=== PATIENT | female | born 1955 | race Caucasian/White ===

== ENCOUNTER 2018-11-23 11:03 | Emergency (ER) | payer BC ==
[~2018-11-23] VITALS: Ht 160 cm; Wt 85.3 kg
[2018-11-23] MEDS ORDERED: IV NORMAL SALINE 1000ML BAG 1,000 ML IV SCH (11:30)
[2018-11-23] MEDS ORDERED: HYOSCYAMINE 0.125 MG TAB.RAPDIS PO ONE (11:30)
[2018-11-23] MEDS ORDERED: PROCHLORPERAZINE 10 MG/2 ML VIAL. IV ONE (11:30)
--- NOTE | 2018-11-23 11:42 | PHYS DOC ---
Past Medical History Past Medical History: Fibromyalgia Past Surgical History: Cholecystectomy Additional Past Surgical Histo: Juan fundoplication, gastric sleeve, back surgery Alcohol Use: None Drug Use: None Adult General Chief Complaint Chief Complaint: NAUSEA/VOMITING/DIARRHA HPI HPI Patient is a 63 year old female who presents with nausea vomiting and diarrhea. Symptoms have waxed and waned over the past month, worse over the past week. Patient was seen at an urgent care 2 days ago and prescribed Zofran which did little to help with the nausea. Patient also has received improvement with Imodium for the diarrhea. No blood in the stool or emesis. Any food seems to make the symptoms worse. Patient has multiple surgical history on her abdomen to include Juan fundoplication, gastric sleeve, and cholecystectomy. Patient reports that the symptoms started after back surgery approximately a month ago improved in time for oral surgery, during which she was given antibiotics, amoxicillin. Oral surgery was approximately a week after her back surgery.[] Review of Systems Review of Systems Constitutional: Denies fever or chills [] Eyes: Denies change in visual acuity, redness, or eye pain [] HENT: Denies nasal congestion or sore throat [] Respiratory: Denies cough or shortness of breath [] Cardiovascular: No chest pain or palpitations[] GI: See history of present illness[] : Denies dysuria or hematuria [] Musculoskeletal: Denies back pain or joint pain [] Integument: Denies rash or skin lesions [] Neurologic: Denies headache, focal weakness or sensory changes [] Endocrine: Denies polyuria or polydipsia [] All other systems were reviewed and found to be within normal limits, except as documented in this note. Current Medications Current Medications Current Medications Medications (Trade) Dose Ordered Sig/Bonita Start Time Stop Time Status Last Admin Dose Admin Hyoscyamine (Anaspaz) 0.125 mg ONCE ONCE 11/23/18 11:30 11/23/18 12:00 DC 11/23/18 12:07 0.125 MG Info (CONTRAST GIVEN -- Rx MONITORING) 1 each PRN DAILY PRN 11/23/18 12:15 11/25/18 12:14 Iohexol (Omnipaque 240 Mg/ml) 50 ml 1X ONCE 11/23/18 12:15 11/23/18 12:16 DC Iohexol (Omnipaque 300 Mg/ml) 75 ml 1X ONCE 11/23/18 12:15 11/23/18 12:16 DC Prochlorperazine Edisylate (Compazine) 5 mg 1X ONCE 11/23/18 11:30 11/23/18 12:00 DC 11/23/18 12:07 5 MG Sodium Chloride 1,000 ml @ 1,000 mls/hr Q1H 11/23/18 11:30 11/23/18 12:29 DC 11/23/18 12:07 1,000 MLS/HR Allergies Allergies Allergies Coded Allergies Type Severity Reaction Last Updated Verified No Known Drug Allergies 11/23/18 No Physical Exam Physical Exam Constitutional: Well developed, well nourished, no acute distress, non-toxic appearance. [] HENT: Normocephalic, atraumatic, bilateral external ears normal, oropharynx dry mucous membranes, no oral exudates, nose normal. [] Eyes: PERRLA, EOMI, conjunctiva normal, no discharge. [] Neck: Normal range of motion, no tenderness, supple, no stridor. [] Cardiovascular:Heart rate regular rhythm, no murmur [] Lungs & Thorax: Bilateral breath sounds clear to auscultation [] Abdomen: Bowel sounds decreased, soft, diffuse tenderness, no rebound, no guarding, no rigidity, no masses, no pulsatile masses. [] Skin: Warm, dry, no erythema, no rash. [] Back: No tenderness, no CVA tenderness. [] Extremities: No tenderness, no cyanosis, no clubbing, ROM intact, no edema. [] Neurologic: Alert and oriented X 3, normal motor function, normal sensory function, no focal deficits noted. [] Psychologic: Affect normal, judgement normal, mood normal. [] Current Patient Data Vital Signs Vital Signs Date Time Temp Pulse Resp B/P (MAP) Pulse Ox O2 Delivery O2 Flow Rate FiO2 11/23/18 13:15 80 16 146/63 (90) 95 Room Air 11/23/18 11:39 98.9 98.9 Lab Values Laboratory Tests Test 11/23/18 11:10 11/23/18 11:56 Urine Collection Type Unknown Urine Color Yellow Urine Clarity Clear Urine pH 6.0 Urine Specific [place] 1.020 Urine Protein Negative mg/dL (NEG-TRACE) Urine Glucose (UA) Negative mg/dL (NEG) Urine Ketones (Stick) >=80 mg/dL (NEG) Urine Blood Moderate (NEG) Urine Nitrite Negative (NEG) Urine Bilirubin Negative (NEG) Urine Urobilinogen Dipstick 0.2 mg/dL (0.2 mg/dL) Urine Leukocyte Esterase Negative (NEG) Urine RBC 6-10 /HPF (0-2) Urine WBC Occ /HPF (0-4) Urine Squamous Epithelial Cells Many /LPF Urine Bacteria Moderate /HPF (0-FEW) Urine Hyaline Casts Few /HPF Urine Mucus Marked /LPF White Blood Count 5.1 x10^3/uL (4.0-11.0) Red Blood Count 4.07 x10^6/uL (3.50-5.40) Hemoglobin 13.0 g/dL (12.0-15.5) Hematocrit 39.0 % (36.0-47.0) Mean Corpuscular Volume 96 fL (79-100) Mean Corpuscular Hemoglobin 32 pg (25-35) Mean Corpuscular Hemoglobin Concent 33 g/dL (31-37) Red Cell Distribution Width 13.8 % (11.5-14.5) Platelet Count 252 x10^3/uL (140-400) Neutrophils (%) (Auto) 54 % (31-73) Lymphocytes (%) (Auto) 33 % (24-48) Monocytes (%) (Auto) 9 % (0-9) Eosinophils (%) (Auto) 3 % (0-3) Basophils (%) (Auto) 1 % (0-3) Neutrophils # (Auto) 2.8 x10^3uL (1.8-7.7) Lymphocytes # (Auto) 1.7 x10^3/uL (1.0-4.8) Monocytes # (Auto) 0.5 x10^3/uL (0.0-1.1) Eosinophils # (Auto) 0.1 x10^3/uL (0.0-0.7) Basophils # (Auto) 0.0 x10^3/uL (0.0-0.2) Prothrombin Time 13.3 SEC (11.7-14.0) Prothrombin Time INR 1.0 (0.8-1.1) Sodium Level 140 mmol/L (136-145) Potassium Level 3.2 mmol/L (3.5-5.1) L Chloride Level 100 mmol/L (98-107) Carbon Dioxide Level 28 mmol/L (21-32) Anion Gap 12 (6-14) Blood Urea Nitrogen 16 mg/dL (7-20) Creatinine 0.7 mg/dL (0.6-1.0) Estimated GFR (Cockcroft-Gault) 84.5 BUN/Creatinine Ratio 23 (6-20) H Glucose Level 93 mg/dL (70-99) Calcium Level 8.9 mg/dL (8.5-10.1) Total Bilirubin 0.6 mg/dL (0.2-1.0) Aspartate Amino Transferase (AST) 25 U/L (15-37) Alanine Aminotransferase (ALT) 38 U/L (14-59) Alkaline Phosphatase 116 U/L (46-116) Troponin I Quantitative < 0.017 ng/mL (0.000-0.055) Total Protein 6.9 g/dL (6.4-8.2) Albumin 3.4 g/dL (3.4-5.0) Albumin/Globulin Ratio 1.0 (1.0-1.7) Lipase 104 U/L (73-393) Laboratory Tests 11/23/18 11:56 Laboratory Tests 11/23/18 11:56 EKG EKG EKG shows a sinus rhythm at 63 bpm, left axis, QTC of 476 ms, no ST elevations, no old EKG available for comparison. Interpreted by me at 1149[] Radiology/Procedures Radiology/Procedures Examination: CT of the abdomen pelvis with oral and IV contrast HISTORY: History of abdominal pain, nausea, vomiting COMPARISON: None available Technique: Axial CT images of the abdomen pelvis were performed with oral and IV contrast. Coronal and sagittal reformats are performed Exposure: One or more of the following individualized dose reduction techniques were utilized for this examination: 1. Automated exposure control 2. Adjustment of the mA and/or kV according to patient size 3. Use of iterative reconstruction technique FINDINGS: The bibasilar lungs are clear. No evidence of free air identified in the abdomen. The visualized liver, spleen, adrenals grossly appears unremarkable. Cholecystectomy clips identified. Surgical changes of gastric sleeve surgery identified. Questionable minimal fat stranding identified about the head of the pancreas. The small bowel is nondilated. Feces and gas noted in the colon. Mild thickened appearance of the wall of the distal ascending colon and the the proximal transverse colon. Anterior abdominal wall widemouth hernia identified containing loop of large large bowel in the midline. The appendix is not visualized. Urinary bladder is mildly distended. A vaginal pessary is identified. The bilateral kidneys enhance symmetrically. Mild prominent bilateral extrarenal pelvis. The caliber of the aorta grossly appears unremarkable. Retroaortic left renal vein. Moderate degenerative changes lumbar spine. Thoracic spine estimated identified. IMPRESSION: 1. Questionable minimal fat stranding identified about the pancreas likely artifactual and less likely pancreatitis. Correlate with lab values. 2. Mild thickened appearance of the wall of the distal ascending colon and the the proximal transverse colon could be due to nondistention or underlying neoplasm is not completely excluded. Recommend follow-up colonoscopy. 3. Cholecystectomy changes. 4. Small midline ventral hernia. [] Course & Med Decision Making Course & Med Decision Making Pertinent Labs and Imaging studies reviewed. (See chart for details) ED course: Patient arrived, was placed in bed, and tolerated exam well. Patient received IV fluids, was able to tolerate contrast, and was transported to and from CT scan without any complications. After return of laboratory and imaging studies, these were discussed with the patient who voiced understanding. All questions were answered. Patient was discharged in improved condition. Medical decision making: There is no evidence of obstruction, perforation, appendicitis, nor other significant intra-abdominal pathology. Patient has oral intake tolerance.[] Dragon Disclaimer Dragon Disclaimer This electronic medical record was generated, in whole or in part, using a voice recognition dictation system. Departure Departure Impression: Primary Impression: Nausea and vomiting Additional Impression: Abdominal pain Disposition: 01 HOME, SELF-CARE Condition: IMPROVED Referrals: NAOMY LE (PCP) Follow-up in 2 days Patient Instructions: Abdominal Pain (Nonspecific), Diet for Diarrhea, Adult, Nausea and Vomiting Additional Instructions: Drink plenty of fluids, frequent small sips. No fatty foods, no milk, and no pepper for the next 48 hours. For the next 48 hours eat a diet rich in carbohydrates with foods such as bananas, rice, applesauce, and toast. Follow- up with your regular doctor in 2 days. Return to the ER if worsening discomfort , unable to tolerate liquids, or any other concerns. Scripts Metoclopramide Hcl (REGLAN) 10 Mg Tablet 10 MG PO QIDACHS, #30 TAB 0 Refills Prov: DEBBIEHOMEROCECILIO BRENNAN 11/23/18 Hyoscyamine Sulfate (LEVSIN) 0.125 Mg Tablet 0.125 MG PO QID, #30 TAB Prov: CECILIO BROWNLEE DO 11/23/18 Problem Qualifiers Primary Impression: Nausea and vomiting Vomiting type: unspecified Vomiting Intractability: non-intractable Qualified Codes: R11.2 - Nausea with vomiting, unspecified Additional Impression: Abdominal pain Abdominal location: generalized Qualified Codes: R10.84 - Generalized abdominal pain CECILIO BROWNLEE DO Nov 23, 2018 11:42
[2018-11-23 12:03] LABS: BASO % 1 % (0-3); EOS # 0.1 x10^3/uL (0.0-0.7); EOS % 3 % (0-3); LYMPH # 1.7 x10^3/uL (1.0-4.8); LYMPH % 33 % (24-48); MEAN CORPUSCULAR HEMOGLOBIN 32 pg (25-35); MEAN CORPUSCULAR HGB CONC 33 g/dL (31-37); MEAN CORPUSCULAR VOLUME 96 fL (79-100); MONO # 0.5 x10^3/uL (0.0-1.1); MONO % 9 % (0-9); NEUT # 2.8 x10^3uL (1.8-7.7); NEUT % 54 % (31-73); PLATELET COUNT 252 x10^3/uL (140-400); RED BLOOD COUNT 4.07 x10^6/uL (3.50-5.40); RED CELL DISTRIBUTION WIDTH 13.8 % (11.5-14.5); WHITE BLOOD COUNT 5.1 x10^3/uL (4.0-11.0)
[2018-11-23 12:04] LABS: BILIRUBIN,URINE NEGATIVE (NEG); CLARITY,URINE CLEAR; COLOR,URINE YELLOW; NITRITE,URINE NEGATIVE (NEG); PROTEIN,URINE NEGATIVE (NEG-TRACE); UROBILINOGEN,URINE 0.2 mg/dL (0.2 mg/dL)
[2018-11-23 12:12] LABS: PROTHROMBIN TIME PATIENT 13.3 SEC (11.7-14.0)
[2018-11-23 12:13] LABS: HYALINE CASTS, URINE FEW /HPF; SQUAMOUS EPITHELIAL CELL,UR MANY /LPF
[2018-11-23] MEDS ORDERED: IOHEXOL 240 MG/ML 50ML VIAL. PO ONE (12:15)
[2018-11-23] MEDS ORDERED: IOHEXOL 300 MG/ML 100ML VIAL. IV ONE (12:15)
[2018-11-23] MEDS ORDERED: CONTRAST GIVEN. MC PRN (12:15)
[2018-11-23 12:17] LABS: BACTERIA,URINE MODERATE /HPF (0-FEW); WBC,URINE OCC /HPF (0-4)
[2018-11-23 12:19] LABS: CALCIUM 8.9 mg/dL (8.5-10.1); CREATININE 0.7 mg/dL (0.6-1.0); GFR 84.5; POTASSIUM 3.2 mmol/L (3.5-5.1)
[2018-11-23 12:25] LABS: ALBUMIN 3.4 g/dL (3.4-5.0); TOTAL BILIRUBIN 0.6 mg/dL (0.2-1.0); TOTAL PROTEIN 6.9 g/dL (6.4-8.2)
--- NOTE | 2018-11-23 13:58 | RAD ---
Examination: CT of the abdomen pelvis with oral and IV contrast HISTORY: History of abdominal pain, nausea, vomiting COMPARISON: None available Technique: Axial CT images of the abdomen pelvis were performed with oral and IV contrast. Coronal and sagittal reformats are performed Exposure: One or more of the following individualized dose reduction techniques were utilized for this examination: 1. Automated exposure control 2. Adjustment of the mA and/or kV according to patient size 3. Use of iterative reconstruction technique FINDINGS: The bibasilar lungs are clear. No evidence of free air identified in the abdomen. The visualized liver, spleen, adrenals grossly appears unremarkable. Cholecystectomy clips identified. Surgical changes of gastric sleeve surgery identified. Questionable minimal fat stranding identified about the head of the pancreas. The small bowel is nondilated. Feces and gas noted in the colon. Mild thickened appearance of the wall of the distal ascending colon and the the proximal transverse colon. Anterior abdominal wall widemouth hernia identified containing loop of large large bowel in the midline. The appendix is not visualized. Urinary bladder is mildly distended. A vaginal pessary is identified. The bilateral kidneys enhance symmetrically. Mild prominent bilateral extrarenal pelvis. The caliber of the aorta grossly appears unremarkable. Retroaortic left renal vein. Moderate degenerative changes lumbar spine. Thoracic spine estimated identified. IMPRESSION: 1. Questionable minimal fat stranding identified about the pancreas likely artifactual and less likely pancreatitis. Correlate with lab values. 2. Mild thickened appearance of the wall of the distal ascending colon and the the proximal transverse colon could be due to nondistention or underlying neoplasm is not completely excluded. Recommend follow-up colonoscopy. 3. Cholecystectomy changes. 4. Small midline ventral hernia. Electronically signed by: Earnest Ingram MD (11/23/2018 1:55 PM) [facility]
[2018-11-23] MEDS ORDERED: HYOS0.1264 PO (14:26)
[2018-11-23] MEDS ORDERED: METO10TA81 PO (14:26)
[2018-11-23 14:30] VITALS: BP 178/78
--- NOTE | 2018-11-23 17:25 | EKG ---
[facility] [address] [place] [address] Test Date: 2018-11-23 Test Time: 11:45:03 Pat Name: SALBADOR HORTA Department: Room: Gender: F Medical Payment Poster: : 1955 Requested By: CECILIO BROWNLEE Order Number: [id number] Reading MD: Nav Tamayo MD Measurements Intervals [place] Rate: 63 P: 48 ID: [id number] QRS: -6 QRSD: 88 T: 2 QT: 462 QTc: 476 Interpretive Statements SINUS RHYTHM NON-SPECIFIC ST/T CHANGES Electronically Signed On 11-25-2018 7:01:02 BRAID CUTTER by Nav Tamayo MD
[2018-12-11] MEDS ORDERED: DULO60CA6 PO (12:38)
[2018-12-11] MEDS ORDERED: MODA200T2 PO (12:38)
[2018-12-11] MEDS ORDERED: CEVI30CA PO (12:38)
[2018-12-11] MEDS ORDERED: [UNRECOGNIZED DRUG - CODE] IJ (12:38)
[2018-12-11] MEDS ORDERED: POTA10TA12 PO (12:38)
[2018-12-11] MEDS ORDERED: ARIP5TAB13 PO (12:38)
[2018-12-11] MEDS ORDERED: ATOR40TA59 PO (12:38)
[2018-12-11] MEDS ORDERED: DEXL60CA2 PO (12:38)
[2018-12-11] MEDS ORDERED: LOSA1TAB25 PO (12:38)
[2018-12-11] MEDS ORDERED: AMLO5TAB10 PO (12:38)
== END 2018-11-23 14:45 | disposition home or self-care (01) ==
LOC: ER 11:03
DX: R11.2 Nausea with vomiting, unspecified (principal); R19.7 Diarrhea, unspecified; R10.84 Generalized abdominal pain; Z90.49 Acquired absence of other specified parts of digestive tract
CPT/HCPCS: 36415; 74177; 80053; 81001; 83690; 84484; 85025; 85610; 87086; 93005; 96361; 96374; 99284; J0780; J7030

== ENCOUNTER → 2018-12-11 | Day surgery (SDC) | payer BC ==
[~2018-12-11] MED LIST: AMLO5TAB10 PO; ARIP5TAB13 PO; ATOR40TA59 PO; CEVI30CA PO; DEXL60CA2 PO; DULO60CA6 PO; HYOS0.1264 PO; IV RINGERS,LACTATED 1000ML 1,000 ML IV SCH; LIDOCAINE 1% PF 2 ML VIAL. ID PRN; LOSA1TAB25 PO; METO10TA81 PO; MIDAZOLAM HCL/PF 2 MG/2 ML VIAL. IV PRN; MODA200T2 PO; POTA10TA12 PO; PROPOFOL 20 ML IV ONE; [UNRECOGNIZED DRUG - CODE] IJ; fentaNYL PF VIAL 100 MCG/2 ML VIAL IV PRN
[2018-12-11 14:31] VITALS: BP 179/83
--- NOTE | 2018-12-12 00:30 | HP ---
ADMIT DATE: 12/11/2018 REFERRING PHYSICIAN: Jackson Bah. REASON: Recent dysphagia, recurrent meat impaction. HISTORY OF PRESENT ILLNESS: This is a 63-year-old female with a past medical history significant for hypertension and hyperlipidemia, who is status post tonsillectomy, tubal ligation, cholecystectomy, Juan, back surgery, knee surgery, shoulder surgery, appendectomy, and hysterectomy, seen for a meat impaction with ham since yesterday. It has been stuck in the substernal location. She has been able to swallow minimal saliva and liquids and is here for possible disimpaction and her interval dilatation. Minimal heartburn is noted. She does take Dexilant 60 mg daily and has had fairly good control of her reflux, but does not use alcohol, nicotine, but occasional caffeine is risk factors for reflux. PAST MEDICAL HISTORY: History of Sjogren's, history of hypertension, hyperlipidemia, GERD. ALLERGIES: None. MEDICATIONS: Include amlodipine, Abilify, atorvastatin, Dexilant, Cymbalta, fentanyl, losartan, modafinil, and potassium chloride. FAMILY AND SOCIAL HISTORY: Significant for multiple colonic polyps, Crohn's disease, [place], diabetes, colon cancer in multiple family members. REVIEW OF SYSTEMS: As per records. PHYSICAL EXAMINATION: GENERAL: Reveals a well-nourished, well-developed female who is alert and cooperative, in no acute distress. VITAL SIGNS: Temperature 99, pulse 66, respirations 20. HEENT: Reveals normocephalic and atraumatic head. Pupils and extraocular muscles are not tested. Sclerae anicteric. NECK: Supple. LUNGS: Clear. CARDIOVASCULAR: Reveals an S1, S2 without S3, S4 or appreciable murmur. ABDOMEN: Reveals soft abdomen, normal bowel sounds, without appreciable hepatosplenomegaly. Multiple surgical incisions. EXTREMITIES: Reveals no cyanosis, clubbing, or edema. IMPRESSION: Dysphagia and GERD with a history of presbyesophagus, etiology is to be determined. We will recommend disimpaction of the food bolus with potential dilatation and/or biopsy. Risks and benefits have been previously discussed and the patient is willing to proceed. RUTH MENDOZA MD DR: NANNETTE/rusty JOB#: [id number] / [id number]
== END | disposition home or self-care (01) ==
LOC: ENDOS 12:09
PROVIDERS: ATTEND Internal Medicine Gastroenterology
DX: T18.128A Food in esophagus causing other injury, initial encounter (principal); K22.2 Esophageal obstruction; I10 Essential (primary) hypertension; E78.5 Hyperlipidemia, unspecified; K21.9 Gastro-esophageal reflux disease without esophagitis; M35.00 Sjogren syndrome, unspecified; Z79.899 Other long term (current) drug therapy; Z90.49 Acquired absence of other specified parts of digestive tract; Z98.51 Tubal ligation status; Z90.710 Acquired absence of both cervix and uterus; Z98.890 Other specified postprocedural states; Z83.71 Family history of colonic polyps; Z83.79 Family history of other diseases of the digestive system; Z83.3 Family history of diabetes mellitus; Z82.49 Family history of ischemic heart disease and other diseases of the circulatory system; Z80.0 Family history of malignant neoplasm of digestive organs; X58.XXXA Exposure to other specified factors, initial encounter; Y93.89 Activity, other specified; Y92.89 Other specified places as the place of occurrence of the external cause; Y99.8 Other external cause status; G47.33 Obstructive sleep apnea (adult) (pediatric); Z90.3 Acquired absence of stomach [part of]
CPT/HCPCS: 43247; 43249; J2704; 43233; 43235; 43450

== ENCOUNTER → 2019-03-03 | Outpatient (CLI) | payer BC ==
[2018-12-11 14:31] VITALS: BP 179/83
[~2019-03-03] MED LIST changes: -IV RINGERS,LACTATED 1000ML 1,000 ML IV SCH; -LIDOCAINE 1% PF 2 ML VIAL. ID PRN; -MIDAZOLAM HCL/PF 2 MG/2 ML VIAL. IV PRN; -PROPOFOL 20 ML IV ONE; +REGADENOSON 0.4 MG/5 ML DISP.SYRIN. IV ONE; -fentaNYL PF VIAL 100 MCG/2 ML VIAL IV PRN
--- NOTE | 2019-03-03 14:45 | RAD ---
MR#: [id number] Date of Study: 03/03/2019 Ordering Physician: ALEXANDRA ISLAS, Referring Physician: DAHLIA DUARTE Tech: RT Armand (R) (N) APPROVED REPORT Test Type: Pharmacological Stress Nurse/Tech: Silvana Judge RN Test Indications: CP Cardiac History: Hypertension Medications: See Electronic Medical Record Medical History: See Electronic Medical Record Resting ECG: SR Resting Heart Rate: 66 bpm Resting Blood Pressure: 160/86mmHg Pretest Chest Pain: None Nurse/Tech Notes Consent: The procedure was explained to the patient in lay terms. Informed consent was witnessed. Andrzej eout was entered into [employer]. History and Stress Test performed by Silvana Judge RN Pharm. Details Pharmacologic stress testing was performed using 0.4mg per 5ml of regadenoson given intravenously ove r 7-10 seconds. Stress Symptoms Dyspnea Chest pain atypical of angina occurred (Severity , 2 min duration). POST EXERCISE Reason for Termination: Infusion complete Max HR: 79 bpm Max Blood Pressure: 160/86mmHg Chest Pain: Yes. chest tightness, 2 to 3/10; last 2 min Angina index: 2 Arrhythmia: No. ST Change: No. INTERPRETATION Stress EKG Conclusion: Baseline EKG showed sinus rhythm. No ischemic changes at peak stress. No arr hythmias. Imaging Protocol IMAGE PROTOCOL: Rest Tc-99m/stress Tc-99m 1 day Rest: Stress: Viability: Radiopharm.Tc99m [id number] Sestamibi Dose10.3mCi 33mCi Duration 13min. 13min. Img Date 03/03/2019 03/03/2019 Inj-Img [id number]. 60min. Rest Admin Site:IV - Right AntecubitalAdministrator:RT Tavon Acuna)(N) Stress Admin Site: IV - Right AntecubitalAdministrator: BRITANY Higuera STRESS DATA End Diast. Vol.71.0mlLVEDV index BSA38.0ml End Syst. Vol.15.0mlLVESV index BSA8.0ml Myocardial Aycp012.0gEject. Soanosll05.0% Stress Scores Regional WT0.00Summed WT6.00 Regional WM0.00Summed WM2.00 Study quality was good. Left Ventricular size was Normal at Rest and Stress. Lung uptake was . Left Ventricular ejection fraction is 79%. The rest and stress images show normal perfusion, normal contraction and thickening. LV Perf. Quant 17 Seg. SSS0.00 17 Seg. SRS2.00 17 Seg. SDS0.00 Stress Defect Extent (% LAD)0.00Rest Defect Extent (% LAD)8.80Rev. Defect Extent (% LAD)0.00 Stress Defect Extent (% LCX) 0.00Rest Defect Extent (% LCX)0.00Rev. Defect Extent (% LCX)0.00 Stress Defect Extent (% RCA)0.00Rest Defect Extent (% RCA)0.00Rev. Defect Extent (% RCA)0.00 Stress Defect Extent (% STACEY)0.00Rest Defect Extent (% STACEY)4.30Rev. Defect Extent (% STACEY)0.00 Conclusion 1. Regadenoson cardioisotope stress test did not show any evidence of ischemia or infarct. 2. Normal left ventricular systolic function with ejection fraction calculated at 79%. 3. Low risk for cardiac events. Signed by : Artie Munroe Electronically Approved : 03/03/2019 14:44:55
== END | disposition home or self-care (01) ==
LOC: NM 10:14
PROVIDERS: ATTEND Internal Medicine Cardiovascular Disease
DX: R07.9 Chest pain, unspecified (principal); R11.0 Nausea; I10 Essential (primary) hypertension
CPT/HCPCS: 78452; 93017; A9500; J2785

== ENCOUNTER → 2019-04-21 | Outpatient (CLI) | payer BC ==
[2018-12-11 14:31] VITALS: BP 179/83
[~2019-04-21] MED LIST changes: -REGADENOSON 0.4 MG/5 ML DISP.SYRIN. IV ONE
--- NOTE | 2019-04-21 09:33 | RAD ---
Exam performed: 3 views left knee and single AP standing view bilateral knees. HISTORY: Knee pain. DATE OF SERVICE: 04/20/2019. COMPARISON: None available FINDINGS: Single AP standing view bilateral knees and lateral and sunrise view of the left knee are obtained. There is severe narrowing of the lateral left tibiofemoral joint. Mild narrowing of the medial left tibiofemoral as well as medial and lateral right tibiofemoral joint is seen. There is moderate narrowing of the patellofemoral joint with osteophytic spurring. There is no acute fracture or dislocation. No soft tissue swelling or joint effusion. 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 No acute abnormal mobility seen. Electronically signed by: Marimar Delgado MD (04/20/2019 9:52 AM) [facility]
== END | disposition home or self-care (01) ==
LOC: PMGORTHO 08:56
PROVIDERS: ATTEND Orthopaedic Surgery
DX: M17.12 Unilateral primary osteoarthritis, left knee (principal); M25.862 Other specified joint disorders, left knee
CPT/HCPCS: 73562

== ENCOUNTER 2019-05-06 21:09 | Emergency (ER) | payer BC ==
[~2019-05-06] VITALS: Ht 160 cm; Wt 83.9 kg
[2019-05-06 21:10] VITALS: BP 146/79
--- NOTE | 2019-05-06 22:17 | PHYS DOC ---
Past Medical History Past Medical History: Fibromyalgia Additional Past Medical Histor: sjogrens, osteoarthritis Past Surgical History: Cholecystectomy Additional Past Surgical Histo: Juan fundoplication, gastric sleeve, back surgery Alcohol Use: None Drug Use: None Adult General Chief Complaint Chief Complaint: SHOULDER INJURY HPI HPI Patient is a 63-year-old female with history of fibromyalgia currently with f entanyl patch on the right shoulder into the ED today with right shoulder pain status post falling. Patient states she was working on a wet floor when she fell. She states she landed on her right shoulder. Denies any loss of consciousness. States the pain is worse on ROM, describes the pain as sharp, rates the pain as 2/10 Review of Systems Review of Systems Constitutional: Denies fever or chills [] Musculoskeletal: Reports right shoulder pain Integument: Denies rash or skin lesions [] Neurologic: Denies headache, focal weakness or sensory changes [] All other systems were reviewed and found to be within normal limits, except as documented in this note. Allergies Allergies Allergies Coded Allergies Type Severity Reaction Last Updated Verified No Known Drug Allergies 12/11/18 No Physical Exam Physical Exam Constitutional: Well developed, well nourished, no acute distress, non-toxic appearance. [] Skin: Warm, dry, no erythema, no rash. [] Back: No tenderness, no CVA tenderness. [] Extremities: Right shoulder with no obvious deformity. Fentanyl patches noted on the right shoulder. Tenderness diffusely throughout to the right shoulder joint. Limited range of motion to the right shoulder due to pain. +2 right radial pulse. Cap refill less than 2 seconds the right fingers. Adequate radial, medial, ulnar sensation to the right upper extremity. Neurologic: Alert and oriented X 3, normal motor function, normal sensory function, no focal deficits noted. [] Psychologic: Affect normal, judgement normal, mood normal. [] Current Patient Data Vital Signs Vital Signs Date Time Temp Pulse Resp B/P (MAP) Pulse Ox O2 Delivery O2 Flow Rate FiO2 05/06/19 21:10 98.4 80 18 146/79 (101) 96 Room Air 98.4 EKG EKG [] Radiology/Procedures Radiology/Procedures [] Course & Med Decision Making Course & Med Decision Making Pertinent Labs and Imaging studies reviewed. (See chart for details) This is a 63-year-old female patient presenting to the ED today with right shoulder pain status post falling. Right shoulder x-rays interpreted by Dr. Daley are negative findings. Patient already has a fentanyl patch on. Ice elevation encouraged. Sling provided applied by the survey and mapping technician, neurovascular exam. Follow-up with orthopedic doctor in one week if pain continues. Dragon Disclaimer Dragon Disclaimer This electronic medical record was generated, in whole or in part, using a voice recognition dictation system. Departure Departure Impression: Primary Impression: Contusion of right shoulder Additional Impression: Fall Disposition: 01 HOME, SELF-CARE Condition: STABLE Referrals: NAOMY LE (PCP) follow up with your doctor in 1 week JAJA OBRIEN MD follow up in one week Patient Instructions: Contusion, [id number] Additional Instructions: You were elevated in the emergency room for right shoulder pain after falling. Your right shoulder x-rays are negative for any acute findings. Please follow-up with your primary care doctor or the orthopedic doctor in 1-2 weeks. Problem Qualifiers Primary Impression: Contusion of right shoulder Encounter type: initial encounter Qualified Codes: S40.011A - Contusion of right shoulder, initial encounter Additional Impression: Fall Encounter type: initial encounter Qualified Codes: W19.XXXA - Unspecified fall, initial encounter OSEI WARE APRN May 06, 2019 22:17
--- NOTE | 2019-05-07 08:10 | RAD ---
EXAM: 3 views right shoulder DATE: 05/06/2019 9:28 PM INDICATION: Right shoulder pain COMPARISON: No Prior FINDINGS/ IMPRESSION: 1. No evidence of acute fracture or dislocation. 2. Humeral head is not high riding. 3. Mild AC joint degenerative change. Electronically signed by: Gunner Piña MD (05/07/2019 8:07 AM) [facility]
== END 2019-05-06 22:35 | disposition home or self-care (01) ==
LOC: ER 21:09
DX: S40.011A Contusion of right shoulder, initial encounter (principal); W18.39XA Other fall on same level, initial encounter; Y93.89 Activity, other specified; Y92.89 Other specified places as the place of occurrence of the external cause; Y99.8 Other external cause status
CPT/HCPCS: 73030; 99284

== ENCOUNTER 2019-06-09 17:16 | Inpatient (IN) | payer BC ==
[~2019-06-09] VITALS: Ht 160 cm; Wt 88.1 kg
[2019-06-09] MEDS ORDERED: IV NORMAL SALINE 1000ML BAG 1,000 ML IV ONE (18:30)
--- NOTE | 2019-06-09 18:33 | PHYS DOC ---
Past Medical History Past Medical History: Fibromyalgia Additional Past Medical Histor: sjogrens, osteoarthritis Past Surgical History: Cholecystectomy Additional Past Surgical Histo: Juan fundoplication, gastric sleeve, back surgery Alcohol Use: None Drug Use: None Adult General Chief Complaint Chief Complaint: GI PROBLEM HPI HPI Patient is a 64 year old female who presents with was eating chicken on Saturday night when she felt it get stuck in her esophagus. Patient states she's not been able to eat any food since then. Patient states that she feels fullness in her e sophagus where it is stuck. Patient states when she stands up she can sip water and Get down but when she sits down she cannot get the water down and she throws it back up. Patient denies any pain at this time. Patient denies any shortness of breath. Review of Systems Review of Systems Constitutional: Denies fever or chills [] GI: Food bolus. Vomiting fluids. Denies abdominal pain, nausea, vomiting, bloody stools or diarrhea [] All other systems were reviewed and found to be within normal limits, except as documented in this note. Current Medications Current Medications Current Medications Medications (Trade) Dose Ordered Sig/Bonita Start Time Stop Time Status Last Admin Dose Admin Fentanyl Citrate (Fentanyl 2ml Vial) 50 mcg 1X ONCE 06/09/19 20:00 06/09/19 20:01 Ondansetron HCl (Zofran) 4 mg 1X ONCE 06/09/19 19:00 06/09/19 19:01 DC 06/09/19 19:11 4 MG Potassium Chloride/Water 100 ml @ 100 mls/hr Q1H 06/09/19 20:30 06/10/19 00:29 Sodium Chloride 1,000 ml @ 1,000 mls/hr 1X ONCE 06/09/19 18:30 06/09/19 19:29 DC 06/09/19 19:11 1,000 MLS/HR Allergies Allergies Allergies Coded Allergies Type Severity Reaction Last Updated Verified No Known Drug Allergies 12/11/18 No Physical Exam Physical Exam Constitutional: Well developed, well nourished, no acute distress, non-toxic appearance. [] Cardiovascular:Heart rate regular rhythm, no murmur [] Lungs & Thorax: Bilateral breath sounds clear to auscultation [] Abdomen: Bowel sounds normal, soft, no tenderness, no masses, no pulsatile masses. [] Skin: Lips are dry. Warm, dry, no erythema, no rash. [] Extremities: No tenderness, no cyanosis, no clubbing, ROM intact, no edema. [] Neurologic: Alert and oriented X 3, normal motor function, normal sensory function, no focal deficits noted. [] Psychologic: Affect normal, judgement normal, mood normal. [] Current Patient Data Vital Signs Vital Signs Date Time Temp Pulse Resp B/P (MAP) Pulse Ox O2 Delivery O2 Flow Rate FiO2 06/09/19 18:54 68 16 169/90 (116) 98 Room Air 06/09/19 18:00 98.0 98.0 Lab Values Laboratory Tests Test 06/09/19 19:01 White Blood Count 8.2 x10^3/uL (4.0-11.0) Red Blood Count 4.36 x10^6/uL (3.50-5.40) Hemoglobin 15.1 g/dL (12.0-15.5) Hematocrit 42.5 % (36.0-47.0) Mean Corpuscular Volume 98 fL (79-100) Mean Corpuscular Hemoglobin 35 pg (25-35) Mean Corpuscular Hemoglobin Concent 36 g/dL (31-37) Red Cell Distribution Width 12.4 % (11.5-14.5) Platelet Count 205 x10^3/uL (140-400) Neutrophils (%) (Auto) 68 % (31-73) Lymphocytes (%) (Auto) 22 % (24-48) L Monocytes (%) (Auto) 9 % (0-9) Eosinophils (%) (Auto) 1 % (0-3) Basophils (%) (Auto) 1 % (0-3) Neutrophils # (Auto) 5.5 x10^3/uL (1.8-7.7) Lymphocytes # (Auto) 1.8 x10^3/uL (1.0-4.8) Monocytes # (Auto) 0.8 x10^3/uL (0.0-1.1) Eosinophils # (Auto) 0.0 x10^3/uL (0.0-0.7) Basophils # (Auto) 0.1 x10^3/uL (0.0-0.2) Sodium Level 142 mmol/L (136-145) Potassium Level 2.7 mmol/L (3.5-5.1) *L Chloride Level 101 mmol/L (98-107) Carbon Dioxide Level 28 mmol/L (21-32) Anion Gap 13 (6-14) Blood Urea Nitrogen 15 mg/dL (7-20) Creatinine 0.7 mg/dL (0.6-1.0) Estimated GFR (Cockcroft-Gault) 84.2 BUN/Creatinine Ratio 21 (6-20) H Glucose Level 78 mg/dL (70-99) Calcium Level 9.7 mg/dL (8.5-10.1) Total Bilirubin 0.7 mg/dL (0.2-1.0) Aspartate Amino Transferase (AST) 26 U/L (15-37) Alanine Aminotransferase (ALT) 21 U/L (14-59) Alkaline Phosphatase 130 U/L (46-116) H Total Protein 7.7 g/dL (6.4-8.2) Albumin 3.8 g/dL (3.4-5.0) Albumin/Globulin Ratio 1.0 (1.0-1.7) Lipase 116 U/L (73-393) Laboratory Tests 06/09/19 19:01 Laboratory Tests 06/09/19 19:01 EKG EKG SINUS RHYTHM AND NO STEMI[] Interpretation Time: [address] ALFRED Radiology/Procedures Radiology/Procedures [] Course & Med Decision Making Course & Med Decision Making Patient is a 64 year old female who presents with was eating chicken on Saturday night when she felt it get stuck in her esophagus. Patient states she's not been able to eat any food since then. Patient states that she feels fullness in her esophagus where it is stuck. Patient states when she stands up she can sip water and Get down but when she sits down she cannot get the water down and she throws it back up. Patient denies any pain at this time. Patient denies any shortness of breath. He is soft and nontender. Alert and oriented. Skin pink warm and dry. Abdomen is soft and nontender. Lungs are clear to auscultation all lobes. Mucus membranes are moist but the patient's lips are very dry. Patient states she's been drinking anything. Chest xray shows no obvious acute findings. Patient's potassium is 2.7. Patient is given potassium 40MEQ IV since she can not currently swallow any medications. I have called and spoken to Dr Holt and he states he is coming to take the patient to the GI lab. Patient is admitted to the hospital for hypokalemia and I have spoken to Dr. Betancourt. Tsering Disclaimer Tsering Disclaimer This electronic medical record was generated, in whole or in part, using a voice recognition dictation system. Departure Departure Impression: Primary Impression: Food impaction of esophagus Additional Impression: Hypokalemia Disposition: ADMITTED INPATIENT Admitting Physician: HIMZander Condition: STABLE Referrals: NAOMY LE (PCP) Problem Qualifiers Primary Impression: Food impaction of esophagus Encounter type: initial encounter Qualified Codes: T18.128A - Food in esophagus causing other injury, initial encounter JESUS STOVALL ACUTE SPECIALIST Jun 09, 2019 18:33
[2019-06-09] MEDS ORDERED: ONDANSETRON PF 4 MG/2 ML VIAL. IV ONE (19:00)
[2019-06-09 19:17] LABS: BASO # 0.1 x10^3/uL (0.0-0.2); BASO % 1 % (0-3); EOS % 1 % (0-3); HEMATOCRIT 42.5 % (36.0-47.0); HEMOGLOBIN 15.1 g/dL (12.0-15.5); LYMPH # 1.8 x10^3/uL (1.0-4.8); LYMPH % 22 % (24-48); MEAN CORPUSCULAR HEMOGLOBIN 35 pg (25-35); MEAN CORPUSCULAR HGB CONC 36 g/dL (31-37); MEAN CORPUSCULAR VOLUME 98 fL (79-100); MONO # 0.8 x10^3/uL (0.0-1.1); MONO % 9 % (0-9); NEUT # 5.5 x10^3/uL (1.8-7.7); NEUT % 68 % (31-73); PLATELET COUNT 205 x10^3/uL (140-400); RED BLOOD COUNT 4.36 x10^6/uL (3.50-5.40); RED CELL DISTRIBUTION WIDTH 12.4 % (11.5-14.5); WHITE BLOOD COUNT 8.2 x10^3/uL (4.0-11.0)
[2019-06-09 19:26] LABS: ALBUMIN 3.8 g/dL (3.4-5.0); CALCIUM 9.7 mg/dL (8.5-10.1); CREATININE 0.7 mg/dL (0.6-1.0); GFR 84.2; TOTAL BILIRUBIN 0.7 mg/dL (0.2-1.0); TOTAL PROTEIN 7.7 g/dL (6.4-8.2)
[2019-06-09 19:31] LABS: POTASSIUM 2.7 mmol/L (3.5-5.1)
--- NOTE | 2019-06-09 19:57 | EKG ---
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
[2019-06-09] MEDS: POTASSIUM CHLORIDE 10MEQ 100 ML IV SCH ×2 (20:00→23:01)
[2019-06-09] MEDS ORDERED: fentaNYL PF VIAL 100 MCG/2 ML VIAL IV ONE (20:00)
[2019-06-09] MEDS ORDERED: fentaNYL PF VIAL 100 MCG/2 ML VIAL IV PRN (20:00)
[2019-06-09] MEDS ORDERED: ONDANSETRON PF 4 MG/2 ML VIAL. IV PRN (20:00)
[2019-06-09] MEDS ORDERED: PROPOFOL 20 ML IV ONE ×2 (20:17→21:26)
--- NOTE | 2019-06-09 20:47 | PDOC2 ---
GI CONSULT Reason For Consult: Impacted food bolus HPI: HPI: Patient is a 64 year old female who presents with was eating chicken on Saturday night when she felt it get stuck in her esophagus. Patient states she's not been able to eat any food since then. Patient states that she feels fullness in her esophagus where it is stuck. Patient states when she stands up she can sip water and Get down but when she sits down she cannot get the water down and she throws it back up. Patient denies any pain at this time. Patient denies any shortness of breath. Believes she may have regurgitated some of the food. Patient seen by Dr. Haney in November this year with food impaction. Stricture, Juan fundoplication and bariatric procedure (historically sleeve gastrectomy) at EGD. Some h/o heartburn on PPI. Stricture dilated with balloon; attempted dilation of wrap with bougie (54F) then after food removal. PMH: PMH: Sjogren's, HTN, HLP, OA, FMS. S/p BTL, shai, Juan, back surgery, knee surgery, shoulder surgery, appy, hysterectomy. FH: Family History: CAD, DM, Other (colon polyps, Crohn's disease, colon cancer) Social History: Smoke: No ALCOHOL: none Drugs: None ROS: GEN: Denies fevers, chills, sweats HEENT: Denies blurred vision, sore throat CV: Denies chest pain RESP: Denies shortness of air, cough GI: Per HPI : Denies hematuria, dysuria ENDO: Denies weight changes NEURO: Denies confusion, dizziness MSK: Denies weakness, joint pain/swelling SKIN: Denies jaundice, pruritus Vitals: Vitals: Vital Signs Date Time Temp Pulse Resp B/P (MAP) Pulse Ox O2 Delivery O2 Flow Rate FiO2 06/09/19 20:00 Room Air 06/09/19 18:54 68 16 169/90 (116) 98 06/09/19 18:00 98.0 98.0 Labs: Labs: Laboratory Tests Test 06/09/19 19:01 White Blood Count 8.2 x10^3/uL (4.0-11.0) Red Blood Count 4.36 x10^6/uL (3.50-5.40) Hemoglobin 15.1 g/dL (12.0-15.5) Hematocrit 42.5 % (36.0-47.0) Mean Corpuscular Volume 98 fL (79-100) Mean Corpuscular Hemoglobin 35 pg (25-35) Mean Corpuscular Hemoglobin Concent 36 g/dL (31-37) Red Cell Distribution Width 12.4 % (11.5-14.5) Platelet Count 205 x10^3/uL (140-400) Neutrophils (%) (Auto) 68 % (31-73) Lymphocytes (%) (Auto) 22 % (24-48) Monocytes (%) (Auto) 9 % (0-9) Eosinophils (%) (Auto) 1 % (0-3) Basophils (%) (Auto) 1 % (0-3) Neutrophils # (Auto) 5.5 x10^3/uL (1.8-7.7) Lymphocytes # (Auto) 1.8 x10^3/uL (1.0-4.8) Monocytes # (Auto) 0.8 x10^3/uL (0.0-1.1) Eosinophils # (Auto) 0.0 x10^3/uL (0.0-0.7) Basophils # (Auto) 0.1 x10^3/uL (0.0-0.2) Sodium Level 142 mmol/L (136-145) Potassium Level 2.7 mmol/L (3.5-5.1) Chloride Level 101 mmol/L (98-107) Carbon Dioxide Level 28 mmol/L (21-32) Anion Gap 13 (6-14) Blood Urea Nitrogen 15 mg/dL (7-20) Creatinine 0.7 mg/dL (0.6-1.0) Estimated GFR (Cockcroft-Gault) 84.2 BUN/Creatinine Ratio 21 (6-20) Glucose Level 78 mg/dL (70-99) Calcium Level 9.7 mg/dL (8.5-10.1) Total Bilirubin 0.7 mg/dL (0.2-1.0) Aspartate Amino Transf (AST/SGOT) 26 U/L (15-37) Alanine Aminotransferase (ALT/SGPT) 21 U/L (14-59) Alkaline Phosphatase 130 U/L (46-116) Total Protein 7.7 g/dL (6.4-8.2) Albumin 3.8 g/dL (3.4-5.0) Albumin/Globulin Ratio 1.0 (1.0-1.7) Lipase 116 U/L (73-393) Allergies: Coded Allergies: No Known Drug Allergies (Unverified , 12/11/18) Medications: Current Medications Medications (Trade) Dose Ordered Sig/Bonita Route PRN Reason Start Time Stop Time Status Last Admin Dose Admin Sodium Chloride 1,000 ml @ 1,000 mls/hr 1X ONCE IV 06/09/19 18:30 06/09/19 19:29 DC 06/09/19 19:11 Ondansetron HCl (Zofran) 4 mg 1X ONCE IV 06/09/19 19:00 06/09/19 19:01 DC 06/09/19 19:11 Fentanyl Citrate (Fentanyl 2ml Vial) 50 mcg 1X ONCE IV 06/09/19 20:00 06/09/19 20:01 DC 06/09/19 20:00 Potassium Chloride/Water 100 ml @ 100 mls/hr Q1H IV 06/09/19 20:30 06/10/19 00:29 06/09/19 20:00 Imaging: Imaging: CXR pending PE: GEN: NAD HEENT: Atraumatic, PERRLA LUNGS: CTAB HEART: RRR, no murmurs ABD: NABS, S/ND/NT, no masses EXTREMITY: No edema SKIN: No rashes, no jaundice NEURO/PSYCH: A & O �3 A/P: A/P: IMP: Impacted food bolus Abnormal UGI anatomy, post-surgical REC: EGD with attempted food bolus removal. ANSHUL WINSTON MD Jun 09, 2019 20:47
[2019-06-09] MEDS: IV RINGERS,LACTATED 1000ML 1,000 ML IV SCH (21:00)
[2019-06-09] MEDS ORDERED: IV RINGERS,LACTATED 1000ML 1,000 ML IV SCH (21:30)
--- NOTE | 2019-06-09 21:48 | PDOC4 ---
PROCEDURE Procedure EGD/food impaction. Indication: impacted food bolus. Meds: per anesthesia Findings: E--Inspissated masticated chicken distally above GEJ; not one discrete piece. Able to push through ("coring") the bolus into stomach, but food moved against wall. Multiple passes with 'scope and finally all but tiny pieces dealt with. No discrete stricture; seems to hold up at patient's fundoplication. G--S/p sleeve gastrectomy. D--Normal bulb. Leonor. well. IMP: Impacted food, resolved. S/p sleeve gastrectomy and fundoplication. REC: continue meds. SMALL bites and plenty of liquids with any meats. Will suggest f/u for further investigation; could conceivably need revision of fundoplication. OK to go home. ANSHUL WINSTON MD Jun 09, 2019 21:48
[2019-06-09] MEDS ORDERED: HYDR200T71 PO (22:36)
[2019-06-09] MEDS ORDERED: FENT1PAT19 TD (22:37)
[2019-06-09] MEDS: IV NORMAL SALINE 1000ML BAG 1,000 ML IV SCH (23:01)
[2019-06-09] MEDS: fentaNYL 75MCG/HR PATCH 1 PATCH PATCH.TD72 TD SCH (23:20)
[2019-06-09 23:26] VITALS: BP 150/71
[2019-06-10] MEDS: POTASSIUM CHLORIDE 10MEQ 100 ML IV SCH ×6 (00:22→15:55)
[2019-06-10 03:34] VITALS: BP 161/70
[2019-06-10 05:36] LABS: CALCIUM 9.3 mg/dL (8.5-10.1); CREATININE 0.6 mg/dL (0.6-1.0); GFR 100.6
[2019-06-10 07:30] VITALS: BP 137/56
--- NOTE | 2019-06-10 07:30 | RAD ---
PORTABLE CHEST 1V History: Food bolus Comparison: None. Findings: Single view of the chest is submitted. There is cervical fusion hardware. Pericardial cardiac silhouette is within normal limits given technique. There are thoracic spinal stimulator leads. There is no lobar infiltrate, pleural fluid, pneumothorax. There is likely mild atelectasis medial left lung base. No radiopaque foreign body is identified. Impression: 1. No radiopaque foreign body is identified. 2. There is mild likely atelectasis of the medial left lung base. Electronically signed by: Amaury Mayorga MD (06/10/2019 7:27 AM) [id number]
[2019-06-10] MEDS ORDERED: SIMETHICONE/SOD BICARB/CITRIC ACID PACKET. PO ONE (07:45)
[2019-06-10] MEDS ORDERED: BARIUM SULFATE 60% 355 ML SUSP PO ONE (07:45)
[2019-06-10] MEDS ORDERED: BARIUM SULFATE 340 GM SUSPENSION. PO ONE (07:45)
[2019-06-10] MEDS: IV NORMAL SALINE 1000ML BAG 1,000 ML IV SCH (09:08)
--- NOTE | 2019-06-10 09:24 | PDOC1 ---
History and Physical Date of Admission Date of Admission DATE: 06/10/19 TIME: : Identification/Chief Complaint Chief Complaint Food stuck Source Source: Patient History of Present Illness History of Present Illness Ms Branch is a 64 yo F w/ PMHx Sjogren's, HTN, HLP, OA, DANE on CPAP, narcolepsy, GERD s/p leticia, sleeve gastrectromy who presents with food stuck in her esophagus. She was eating chicken on 06/07 at night when she felt it get stuck in her esophagus. Patient states she had not been able to eat any food since then. Was able to get down liquid but threw it back up. Went for EGD with Dr. Holt with successful push-through removal of food bolus. Notably her potassium was 2.7, given 4 doses of 10meq overnight, still at 3.0 this morning. Patient denies any pain at this time. Patient denies any shortness of breath. She is feeling sleepy, wishes to eat and take her morning meds. Past Medical History Cardiovascular: HTN, Hyperlipidemia Pulmonary: Other (DANE on CPAP) GI: GERD Heme/Onc: No pertinent hx Rheumatologic: Other (Sjogrens) Infectious disease: No pertinent hx ENT: No pertinent hx Renal/: No pertinent hx Endocrine: No pertinent hx Dermatology: No pertinent hx Past Surgical History Past Surgical History: Other (Sleeve gastrectomy, Leticia) Family History Family History: High Cholestrol, Hypertension Social History Smoke: No ALCOHOL: none Drugs: None Current Problem List Problem List Problems Medical Problems: (1) Food impaction of esophagus Status: Acute (2) Hypokalemia Status: Acute Current Medications Current Medications Current Medications Sodium Chloride 1,000 ml @ 1,000 mls/hr 1X ONCE IV Last administered on 06/09/19at 19:11; Start 06/09/19 at 18:30; Stop 06/09/19 at 19:29; Status DC Ondansetron HCl (Zofran) 4 mg 1X ONCE IV Last administered on 06/09/19at 19:11; Start 06/09/19 at 19:00; Stop 06/09/19 at 19:01; Status DC Fentanyl Citrate (Fentanyl 2ml Vial) 50 mcg 1X ONCE IV Last administered on 06/09/19at 20:00; Start 06/09/19 at 20:00; Stop 06/09/19 at 20:01; Status DC Potassium Chloride/Water 100 ml @ 100 mls/hr Q1H IV Last administered on 06/10/19at 02:19; Start 06/09/19 at 20:30; Stop 06/10/19 at 00:29; Status DC Ondansetron HCl (Zofran) 4 mg PRN Q8HRS PRN IV NAUSEA/VOMITING Last administered on 06/09/19at 23:21; Start 06/09/19 at 20:00; Stop 06/10/19 at 19:59 Fentanyl Citrate (Fentanyl 2ml Vial) 50 mcg PRN Q1HR PRN IV PAIN; Start 06/09/19 at 20:00; Stop 06/10/19 at 19:59 Sodium Chloride 1,000 ml @ 75 mls/hr [id number] IV Last administered on 06/09/19at 23:01; Start 06/09/19 at 19:48; Stop 06/10/19 at 19:47 Propofol 20 ml @ As Directed STK-MED ONCE IV ; Start 06/09/19 at 20:17; Stop 06/09/19 at 20:17; Status DC Ringer's Solution 1,000 ml @ 0 mls/hr Q0M IV ; Start 06/09/19 at 21:30 Propofol 20 ml @ As Directed STK-MED ONCE IV ; Start 06/09/19 at 21:26; Stop 06/09/19 at 21:27; Status DC Ringer's Solution 1,000 ml @ 75 mls/hr [id number] IV Last administered on 06/09/19at 21:54; Start 06/09/19 at 22:00 Fentanyl (Duragesic 75mcg/ Hr Patch) 1 patch Q3DAYS TD Last administered on 06/09/19at 23:21; Start 06/09/19 at 23:00 Barium Sulfate (Liquid E-Z Paque) 355 ml 1X ONCE PO Last administered on 06/10/19at 08:31; Start 06/10/19 at 07:45; Stop 06/10/19 at 07:46; Status DC Barium Sulfate (E-Z-Hd) 340 gm 1X ONCE PO ; Start 06/10/19 at 07:45; Stop 06/10/19 at 07:46; Status DC Simethicone/ Sodium Bicarb/ Citric Ac (E-Z-Gas) 1 packet 1X ONCE PO ; Start 06/10/19 at 07:45; Stop 06/10/19 at 07:46; Status DC Active Scripts Active Reported FENTANYL 75mcg/hr (Fentanyl) 1 Each Patch.td72 1 Patch TD Q72H Plaquenil (Hydroxychloroquine Sulfate) 200 Mg Tablet 200 Mg PO DAILY Modafinil 200 Mg Tablet 200 Mg PO DAILY Klor-Con 10 (Potassium Chloride) 10 Meq Tablet.er 10 Meq PO DAILY Losartan-Hctz 100-12.5 Mg Tab (Losartan/Hydrochlorothiazide) 1 Each Tablet 1 Each PO DAILY Fentanyl Citrate-Ns 600 Mcg/30 (Fentanyl Citrate-0.9 % NaCl/Pf) 600 Mcg/30 Ml Customer Account Manager.vial 600 Mcg IJ Q 72 HRS Cymbalta (Duloxetine Hcl) 60 Mg Capsule.dr 60 Mg PO DAILY Cevimeline Hcl 30 Mg Capsule 30 Mg PO TID Dexilant (Dexlansoprazole) 60 Mg Cap.dr.mp 60 Mg PO DAILY Atorvastatin Calcium 40 Mg Tablet 40 Mg PO HS Amlodipine Besylate 5 Mg Tablet 5 Mg PO DAILY Abilify (Aripiprazole) 5 Mg Tablet 5 Mg PO DAILY Allergies Allergies: Coded Allergies: No Known Drug Allergies (Unverified , 12/11/18) ROS General: YES: Fatigue, Malaise, Appetite; No: Chills, Night Sweats, Other PSYCHOLOGICAL ROS: No: Anxiety, Behavioral Disorder, Concentration difficultie, Decreased libido, Depression, Disorientation, Hallucinations, Hostility, Irritab lity, Memory difficulties, Mood Swings, Obsessive thoughts, Physical abuse, Sexual abuse, Sleep disturbances, Suicidal ideation, Other Eyes: No Blurry vision, No Decreased vision, No Double vision, No Dry eyes, No Excessive tearing, No Eye Pain, No Itchy Eyes, No Loss of vision, No Photophobia, No Scotomata, No Uses contacts, No Uses glasses, No Other HEENT: YES: Sore Throat; No: Heacaches, Visual Changes, Hearing change, Nasal congestion, Nasal discharge, Oral lesions, Sinus pain, Epistaxis, Sneezing, Snoring, Tinnitus, Vertigo, Vocal changes, Other ALLERGY AND IMMUNOLOGY: No: Hives, Insect Bite Sensitivity, Itchy/Watery Eyes, Nasal Congestion, Post Nasal Drip, Seasonal Allergies, Other Hematological and Lymphatic: No: Bleeding Problems, Blood Clots, Blood Transfusions, Brusing, Night Sweats, Pallor, Swollen Lymph Nodes, Other ENDOCRINE: No: Breast Changes, Galactorrhea, Hair Pattern Changes, Hot Flashes, Malaise/lethargy, Mood Swings, Palpitations, Polydipsia/polyuria, Skin Changes, Temperature Intolerance, Unexpected Weight Changes, Other Breast: No New/Changing Breast Lumps, No Nipple changes, No Nipple discharge, No Other Respiratory: No: Cough, Hemoptysis, Orthopnea, Pleuritic Pain, Shortness of breath, SOB with excertion, Sputum Changes, Stridor, Tachypnea, Wheezing, Other Cardiovascular: No Chest Pain, No Palpitations, No Orthopnea, No Paroxysmal Noc. Dyspnea, No Edema, No Lt Headedness, No Other Gastrointestinal: Yes Nausea, Yes Abdominal Pain; No Vomiting, No Diarrhea, No Constipation, No Melena, No Hematochezia, No Other Genitourinary: No Dysuria, No Frequency, No Incontinence, No Hematuria, No Retention, No Discharge, No Urgency, No Pain, No Flank Pain, No Other, No , No , No , No , No , No , No Musculoskeletal: No Gait Disturbance, No Joint Pain, No Joint Stiffness, No Joint Swelling, No Muscle Pain, No Muscular Weakness, No Pain In:, No Swelling In:, No Other Neurological: No Behavorial Changes, No Bowel/Bladder ControlChng, No Confusion, No Dizziness, No Gait Disturbance, No Headaches, No Impaired Coord/balance, No Memory Loss, No Numbness/Tingling, No Seizures, No Speech Problems, No Tremors, No Visual Changes, No Weakness, No Other Skin: No Dry Skin, No Eczema, No Hair Changes, No Lumps, No Mole Changes, No Mottling, No Nail Changes, No Pruritus, No Rash, No Skin Lesion Changes, No Other, No Acne Physical Exam General: Alert, Oriented X3, Cooperative, No acute distress HEENT: Atraumatic, PERRLA, EOMI, Mucous membr. moist/pink Lungs: Clear to auscultation, Normal air movement Heart: S1S2, RRR, no gallops, no murmurs Abdomen: Normal bowel sounds, Soft, No tenderness, No hepatosplenomegaly, No masses Rectal Exam: not examined Extremities: No clubbing, No cyanosis, No edema, Normal pulses, No tenderness/swelling Skin: No rashes, No breakdown, No significant lesion Neuro: Normal gait, Normal speech, Strength at 5/5 X4 ext, Normal tone, Sensation intact, Cranial nerves 3-12 NL, Reflexes 2+ Psych/Mental Status: Mental status NL, Mood NL Vitals Vitals Vital Signs Date Time Temp Pulse Resp B/P (MAP) Pulse Ox O2 Delivery O2 Flow Rate FiO2 06/10/19 08:04 Room Air 2.0 06/10/19 07:30 97.5 69 14 137/56 (83) 96 97.5 Labs Labs Laboratory Tests Test 06/09/19 19:01 06/10/19 04:20 White Blood Count 8.2 x10^3/uL (4.0-11.0) Red Blood Count 4.36 x10^6/uL (3.50-5.40) Hemoglobin 15.1 g/dL (12.0-15.5) Hematocrit 42.5 % (36.0-47.0) Mean Corpuscular Volume 98 fL (79-100) Mean Corpuscular Hemoglobin 35 pg (25-35) Mean Corpuscular Hemoglobin Concent 36 g/dL (31-37) Red Cell Distribution Width 12.4 % (11.5-14.5) Platelet Count 205 x10^3/uL (140-400) Neutrophils (%) (Auto) 68 % (31-73) Lymphocytes (%) (Auto) 22 % (24-48) Monocytes (%) (Auto) 9 % (0-9) Eosinophils (%) (Auto) 1 % (0-3) Basophils (%) (Auto) 1 % (0-3) Neutrophils # (Auto) 5.5 x10^3/uL (1.8-7.7) Lymphocytes # (Auto) 1.8 x10^3/uL (1.0-4.8) Monocytes # (Auto) 0.8 x10^3/uL (0.0-1.1) Eosinophils # (Auto) 0.0 x10^3/uL (0.0-0.7) Basophils # (Auto) 0.1 x10^3/uL (0.0-0.2) Sodium Level 142 mmol/L (136-145) 141 mmol/L (136-145) Potassium Level 2.7 mmol/L (3.5-5.1) 3.0 mmol/L (3.5-5.1) Chloride Level 101 mmol/L (98-107) 101 mmol/L (98-107) Carbon Dioxide Level 28 mmol/L (21-32) 27 mmol/L (21-32) Anion Gap 13 (6-14) 13 (6-14) Blood Urea Nitrogen 15 mg/dL (7-20) 15 mg/dL (7-20) Creatinine 0.7 mg/dL (0.6-1.0) 0.6 mg/dL (0.6-1.0) Estimated GFR (Cockcroft-Gault) 84.2 100.6 BUN/Creatinine Ratio 21 (6-20) Glucose Level 78 mg/dL (70-99) 76 mg/dL (70-99) Calcium Level 9.7 mg/dL (8.5-10.1) 9.3 mg/dL (8.5-10.1) Magnesium Level 1.9 mg/dL (1.8-2.4) Total Bilirubin 0.7 mg/dL (0.2-1.0) Aspartate Amino Transf (AST/SGOT) 26 U/L (15-37) Alanine Aminotransferase (ALT/SGPT) 21 U/L (14-59) Alkaline Phosphatase 130 U/L (46-116) Total Protein 7.7 g/dL (6.4-8.2) Albumin 3.8 g/dL (3.4-5.0) Albumin/Globulin Ratio 1.0 (1.0-1.7) Lipase 116 U/L (73-393) Laboratory Tests Test 06/09/19 19:01 06/10/19 04:20 White Blood Count 8.2 x10^3/uL (4.0-11.0) Red Blood Count 4.36 x10^6/uL (3.50-5.40) Hemoglobin 15.1 g/dL (12.0-15.5) Hematocrit 42.5 % (36.0-47.0) Mean Corpuscular Volume 98 fL (79-100) Mean Corpuscular Hemoglobin 35 pg (25-35) Mean Corpuscular Hemoglobin Concent 36 g/dL (31-37) Red Cell Distribution Width 12.4 % (11.5-14.5) Platelet Count 205 x10^3/uL (140-400) Neutrophils (%) (Auto) 68 % (31-73) Lymphocytes (%) (Auto) 22 % (24-48) Monocytes (%) (Auto) 9 % (0-9) Eosinophils (%) (Auto) 1 % (0-3) Basophils (%) (Auto) 1 % (0-3) Neutrophils # (Auto) 5.5 x10^3/uL (1.8-7.7) Lymphocytes # (Auto) 1.8 x10^3/uL (1.0-4.8) Monocytes # (Auto) 0.8 x10^3/uL (0.0-1.1) Eosinophils # (Auto) 0.0 x10^3/uL (0.0-0.7) Basophils # (Auto) 0.1 x10^3/uL (0.0-0.2) Sodium Level 142 mmol/L (136-145) 141 mmol/L (136-145) Potassium Level 2.7 mmol/L (3.5-5.1) 3.0 mmol/L (3.5-5.1) Chloride Level 101 mmol/L (98-107) 101 mmol/L (98-107) Carbon Dioxide Level 28 mmol/L (21-32) 27 mmol/L (21-32) Anion Gap 13 (6-14) 13 (6-14) Blood Urea Nitrogen 15 mg/dL (7-20) 15 mg/dL (7-20) Creatinine 0.7 mg/dL (0.6-1.0) 0.6 mg/dL (0.6-1.0) Estimated GFR (Cockcroft-Gault) 84.2 100.6 BUN/Creatinine Ratio 21 (6-20) Glucose Level 78 mg/dL (70-99) 76 mg/dL (70-99) Calcium Level 9.7 mg/dL (8.5-10.1) 9.3 mg/dL (8.5-10.1) Magnesium Level 1.9 mg/dL (1.8-2.4) Total Bilirubin 0.7 mg/dL (0.2-1.0) Aspartate Amino Transf (AST/SGOT) 26 U/L (15-37) Alanine Aminotransferase (ALT/SGPT) 21 U/L (14-59) Alkaline Phosphatase 130 U/L (46-116) Total Protein 7.7 g/dL (6.4-8.2) Albumin 3.8 g/dL (3.4-5.0) Albumin/Globulin Ratio 1.0 (1.0-1.7) Lipase 116 U/L (73-393) VTE Prophylaxis Ordered VTE Prophylaxis Devices: No VTE Pharmacological Prophylaxi: No Assessment/Plan Assessment/Plan A/P: Impacted food bolus - successfully removed. Barium swallow pending. F/u GI recs, possibly to d/c later today Hypokalemia - possibly 2/2 HCTZ, I advised her to ask her PCP about considering alternatives. Replaced 4 doses IV, will replace another 4 IV, check mag Sjogren's - cont cevilimine HTN - stable, cont meds HLP- cont statin OA - monitor DANE on CPAP - home CPAP Narcolepsy - on modafanil, unfortunately we do not carry this. GERD s/p leticia - likely still has pretty severe reflux Obesity - S/P sleeve gastrectromy. Has f/u FEN - Liquid diet when ok with GI PPX - Ambulatory FULL CODE Dispo - May be able to d/c later today after potassium IV replacement if ok with GI NAOMY PEPPER MD Jun 10, 2019 09:24
[2019-06-10] MEDS ORDERED: fentaNYL 75MCG/HR PATCH 1 PATCH PATCH.TD72 TD SCH (09:30)
--- NOTE | 2019-06-10 09:47 | RAD ---
CLINICAL HISTORY: food impaction/history of fundoplication and sleeve gastrectomy COMPARISON: None available. TECHNIQUE:A single contrast esophagram study was performed. Thin barium was administered orally and radiographs were taken under fluoroscopic guidance. Fluoroscopy time: 0.5 MIN FLUORO 26 images submitted FINDINGS: The esophagus demonstrated normal contour. There was no intrinsic or extrinsic filling defects or diverticula seen. Mild mass effect on the esophagus from the aorta. Prompt esophageal emptying. Small hiatal hernia. The gastroesophageal junction was normal in appearance. Numerous tertiary contractions are seen. Reflux to the mid thoracic esophagus. IMPRESSION: 1. No definite intrinsic or extrinsic filling defect of the esophagus is seen although there is mild mass effect on the esophagus from the aortic arch. 2. Prompt gastroesophageal emptying. 3. Small hiatal hernia. 4. Tertiary contractions suggesting delayed motility, presbyesophagus 5. Reflux to the mid thoracic esophagus Electronically signed by: Gunner Piña MD (06/10/2019 9:44 AM) [facility]
[2019-06-10] MEDS ORDERED: MAGNESIUM SULFATE 1GM 100 ML IV ONE (10:00)
--- NOTE | 2019-06-10 11:02 | NUR ---
SW following pt for dc planning. Chart reviewed. Pt lives at home and admitted for hypokalemia. GI following. No SW needs noted at this time. Will continue to follow pending dc needs.
[2019-06-10 11:33] VITALS: BP 132/57
[2019-06-10] MEDS: PANTOPRAZOLE 40 MG TABLET.DR. PO SCH (11:34)
[2019-06-10] MEDS: amLODIPine BESYLATE 5 MG TABLET PO SCH (11:34)
[2019-06-10] MEDS: DULoxetine HCL 30 MG CAPSULE.DR PO SCH (11:34)
[2019-06-10] MEDS: ARIPiprazole 5 MG TABLET PO SCH (11:34)
[2019-06-10] MEDS: POTASSIUM CHLORIDE 10 MEQ TABLET.ER. PO SCH (11:34)
[2019-06-10] MEDS: HYDROXYCHLOROQUINE 200 MG TABLET PO SCH (11:35)
--- NOTE | 2019-06-10 11:44 | PDOC ---
G I PROGRESS NOTE Subjective No complaints this morning. Physical Exam Lungs clear. RRR Abdomen soft, not tender. Review of Relevant I have reviewed the following items luis (where applicable) has been applied. Labs Laboratory Tests Test 06/09/19 19:01 06/10/19 04:20 White Blood Count 8.2 x10^3/uL (4.0-11.0) Red Blood Count 4.36 x10^6/uL (3.50-5.40) Hemoglobin 15.1 g/dL (12.0-15.5) Hematocrit 42.5 % (36.0-47.0) Mean Corpuscular Volume 98 fL (79-100) Mean Corpuscular Hemoglobin 35 pg (25-35) Mean Corpuscular Hemoglobin Concent 36 g/dL (31-37) Red Cell Distribution Width 12.4 % (11.5-14.5) Platelet Count 205 x10^3/uL (140-400) Neutrophils (%) (Auto) 68 % (31-73) Lymphocytes (%) (Auto) 22 % (24-48) Monocytes (%) (Auto) 9 % (0-9) Eosinophils (%) (Auto) 1 % (0-3) Basophils (%) (Auto) 1 % (0-3) Neutrophils # (Auto) 5.5 x10^3/uL (1.8-7.7) Lymphocytes # (Auto) 1.8 x10^3/uL (1.0-4.8) Monocytes # (Auto) 0.8 x10^3/uL (0.0-1.1) Eosinophils # (Auto) 0.0 x10^3/uL (0.0-0.7) Basophils # (Auto) 0.1 x10^3/uL (0.0-0.2) Sodium Level 142 mmol/L (136-145) 141 mmol/L (136-145) Potassium Level 2.7 mmol/L (3.5-5.1) 3.0 mmol/L (3.5-5.1) Chloride Level 101 mmol/L (98-107) 101 mmol/L (98-107) Carbon Dioxide Level 28 mmol/L (21-32) 27 mmol/L (21-32) Anion Gap 13 (6-14) 13 (6-14) Blood Urea Nitrogen 15 mg/dL (7-20) 15 mg/dL (7-20) Creatinine 0.7 mg/dL (0.6-1.0) 0.6 mg/dL (0.6-1.0) Estimated GFR (Cockcroft-Gault) 84.2 100.6 BUN/Creatinine Ratio 21 (6-20) Glucose Level 78 mg/dL (70-99) 76 mg/dL (70-99) Calcium Level 9.7 mg/dL (8.5-10.1) 9.3 mg/dL (8.5-10.1) Magnesium Level 1.9 mg/dL (1.8-2.4) Total Bilirubin 0.7 mg/dL (0.2-1.0) Aspartate Amino Transf (AST/SGOT) 26 U/L (15-37) Alanine Aminotransferase (ALT/SGPT) 21 U/L (14-59) Alkaline Phosphatase 130 U/L (46-116) Total Protein 7.7 g/dL (6.4-8.2) Albumin 3.8 g/dL (3.4-5.0) Albumin/Globulin Ratio 1.0 (1.0-1.7) Lipase 116 U/L (73-393) Laboratory Tests Test 06/09/19 19:01 06/10/19 04:20 White Blood Count 8.2 x10^3/uL (4.0-11.0) Red Blood Count 4.36 x10^6/uL (3.50-5.40) Hemoglobin 15.1 g/dL (12.0-15.5) Hematocrit 42.5 % (36.0-47.0) Mean Corpuscular Volume 98 fL (79-100) Mean Corpuscular Hemoglobin 35 pg (25-35) Mean Corpuscular Hemoglobin Concent 36 g/dL (31-37) Red Cell Distribution Width 12.4 % (11.5-14.5) Platelet Count 205 x10^3/uL (140-400) Neutrophils (%) (Auto) 68 % (31-73) Lymphocytes (%) (Auto) 22 % (24-48) Monocytes (%) (Auto) 9 % (0-9) Eosinophils (%) (Auto) 1 % (0-3) Basophils (%) (Auto) 1 % (0-3) Neutrophils # (Auto) 5.5 x10^3/uL (1.8-7.7) Lymphocytes # (Auto) 1.8 x10^3/uL (1.0-4.8) Monocytes # (Auto) 0.8 x10^3/uL (0.0-1.1) Eosinophils # (Auto) 0.0 x10^3/uL (0.0-0.7) Basophils # (Auto) 0.1 x10^3/uL (0.0-0.2) Sodium Level 142 mmol/L (136-145) 141 mmol/L (136-145) Potassium Level 2.7 mmol/L (3.5-5.1) 3.0 mmol/L (3.5-5.1) Chloride Level 101 mmol/L (98-107) 101 mmol/L (98-107) Carbon Dioxide Level 28 mmol/L (21-32) 27 mmol/L (21-32) Anion Gap 13 (6-14) 13 (6-14) Blood Urea Nitrogen 15 mg/dL (7-20) 15 mg/dL (7-20) Creatinine 0.7 mg/dL (0.6-1.0) 0.6 mg/dL (0.6-1.0) Estimated GFR (Cockcroft-Gault) 84.2 100.6 BUN/Creatinine Ratio 21 (6-20) Glucose Level 78 mg/dL (70-99) 76 mg/dL (70-99) Calcium Level 9.7 mg/dL (8.5-10.1) 9.3 mg/dL (8.5-10.1) Magnesium Level 1.9 mg/dL (1.8-2.4) Total Bilirubin 0.7 mg/dL (0.2-1.0) Aspartate Amino Transf (AST/SGOT) 26 U/L (15-37) Alanine Aminotransferase (ALT/SGPT) 21 U/L (14-59) Alkaline Phosphatase 130 U/L (46-116) Total Protein 7.7 g/dL (6.4-8.2) Albumin 3.8 g/dL (3.4-5.0) Albumin/Globulin Ratio 1.0 (1.0-1.7) Lipase 116 U/L (73-393) Vitals/I & O Vital Sign - Last 24 Hours 06/09/19 06/09/19 06/09/19 06/09/19 18:00 18:24 18:54 20:00 Temp 98.0 98.0 Pulse 73 68 68 Resp 16 16 16 B/P (MAP) 180/90 (120) 177/75 (109) 169/90 (116) Pulse Ox 100 98 98 O2 Delivery Room Air Room Air Room Air Room Air 06/09/19 06/09/19 06/09/19 06/09/19 20:56 21:14 21:45 22:00 Temp 98.0 98.0 Pulse 68 68 67 66 Resp 16 15 16 B/P (MAP) 149/90 (109) 140/67 166/72 Pulse Ox 99 100 99 99 O2 Delivery Room Air Nasal Cannula Nasal Cannula O2 Flow Rate 2 2 06/09/19 06/09/19 06/09/19 06/10/19 22:15 23:21 23:26 03:24 Temp 98.0 98.0 Pulse 63 Resp 18 B/P (MAP) 150/71 (97) Pulse Ox 97 O2 Delivery Room Air Nasal Cannula Room Air Room Air 06/10/19 06/10/19 06/10/19 06/10/19 03:34 07:30 08:04 11:33 Temp 98.4 97.5 97.4 98.4 97.5 97.4 Pulse 73 69 72 Resp 18 14 15 B/P (MAP) 161/70 (100) 137/56 (83) 132/57 (82) Pulse Ox 96 96 98 O2 Delivery Room Air Room Air Room Air Room Air O2 Flow Rate 2.0 06/10/19 11:35 Pulse 72 B/P (MAP) 132/57 Intake and Output 06/09/19 06/09/19 06/10/19 15:00 23:00 07:00 Intake Total 1600 ml 0 ml Balance 1600 ml 0 ml Images On barium swallow: FINDINGS: The esophagus demonstrated normal contour. There was no intrinsic or extrinsic filling defects or diverticula seen. Mild mass effect on the esophagus from the aorta. Prompt esophageal emptying. Small hiatal hernia. The gastroesophageal junction was normal in appearance. Numerous tertiary contractions are seen. Reflux to the mid thoracic esophagus. IMPRESSION: 1. No definite intrinsic or extrinsic filling defect of the esophagus is seen although there is mild mass effect on the esophagus from the aortic arch. 2. Prompt gastroesophageal emptying. 3. Small hiatal hernia. 4. Tertiary contractions suggesting delayed motility, presbyesophagus 5. Reflux to the mid thoracic esophagus Problem List Problems Medical Problems: (1) Food impaction of esophagus Status: Acute (2) Hypokalemia Status: Acute Assessment Presbyesophagus/reflux. Was concerned re: "slipped Juan" but not by x-ray. Plan of Care: Continue current Tx, Mgmt Plan of Care Note Suggested see me in the office. Gave card. Admonished small bites, chew well, plenty of liquids. Continue PPI at home. ANSHUL WINSTON MD Jun 10, 2019 11:44
[2019-06-10] MEDS: IV RINGERS,LACTATED 1000ML 1,000 ML IV SCH (11:50)
[2019-06-10] MEDS: CEVIMELINE 30 MG PO SCH ×2 (14:00→20:54)
[2019-06-10 15:15] VITALS: BP 144/57
[2019-06-10 19:43] VITALS: BP 140/65
[2019-06-10] MEDS: ATORVASTATIN CALCIUM 40 MG TABLET. PO SCH (20:54)
[2019-06-10 23:14] VITALS: BP 135/74
[2019-06-11] MEDS: IV RINGERS,LACTATED 1000ML 1,000 ML IV SCH ×2 (02:22→17:39)
[2019-06-11 03:20] VITALS: BP 140/71
[2019-06-11 07:00] VITALS: BP 129/98
[2019-06-11] MEDS: PANTOPRAZOLE 40 MG TABLET.DR. PO SCH (07:37)
[2019-06-11] MEDS: HYDROXYCHLOROQUINE 200 MG TABLET PO SCH (08:25)
[2019-06-11] MEDS: ARIPiprazole 5 MG TABLET PO SCH (08:25)
[2019-06-11] MEDS: POTASSIUM CHLORIDE 10 MEQ TABLET.ER. PO SCH (08:25)
[2019-06-11] MEDS: DULoxetine HCL 30 MG CAPSULE.DR PO SCH (08:25)
[2019-06-11] MEDS: NON FORMULARY ITEM (Modafinil 200 MG) PO SCH (08:26)
[2019-06-11] MEDS: CEVIMELINE 30 MG PO SCH ×3 (08:26→21:00)
[2019-06-11] MEDS: amLODIPine BESYLATE 5 MG TABLET PO SCH (08:26)
--- NOTE | 2019-06-11 09:25 | PDOC ---
PROGRESS NOTES History of Present Illness History of Present Illness VTE Prophylaxis Ordered VTE Prophylaxis Devices: No VTE Pharmacological Prophylaxi: No Assessment/Plan Assessment/Plan A/P: Impacted food bolus - successfully removed. Barium swallow pending. F/u GI recs, ON BARIUM SWALLOW No definite intrinsic or extrinsic filling defect of the esophagus is seen although there is mild mass effect on the esophagus from the aortic arch. Prompt gastroesophageal emptying. Small hiatal hernia. Tertiary contractions suggesting delayed motility, presbyesophagus Reflux to the mid thoracic esophagus Hypokalemia - possibly 2/2 HCTZ, I advised her to ask her PCP about considering alternatives. Replaced 4 doses IV, will replace another 4 IV, check mag Sjogren's - cont cevilimine HTN - stable, cont meds HLP- cont statin .03/11 Regadenoson cardioisotope stress test did not show any evidence of ischemia or infarct. OA - monitor DANE on CPAP - home CPAP Narcolepsy - on modafanil, GERD s/p leticia - severe reflux Obesity - S/P sleeve gastrectromy. Has f/u HYPOKALEMIA, MAY NOT TOLERATE ORAL K WELL diarrhea FEN - Liquid diet when ok with GI PPX - Ambulatory FULL CODE Dispo - potassium IV replacement , MG REPLACEMENT stool culture 37 MIN PT EXAM, CHART REVIEW, > 50% OF TIME SPENT WITH EXAM, CHART REVIEW, PT CARE COORDINATION Vitals Vitals Vital Signs Date Time Temp Pulse Resp B/P (MAP) Pulse Ox O2 Delivery O2 Flow Rate FiO2 06/11/19 08:29 63 129/98 06/11/19 07:00 98.6 16 98 Room Air 98.6 06/10/19 08:04 2.0 Physical Exam General: Alert, Oriented X3, Cooperative, No acute distress Heart: Regular rate, No murmurs Lungs: Clear Abdomen: Normal bowel sounds, Soft, No tenderness, No hepatosplenomegaly, No masses Extremities: No clubbing, No cyanosis, No edema, Normal pulses, No tenderness/swelling Skin: No rashes, No breakdown, No significant lesion Labs LABS Pharm. Details Pharmacologic stress testing was performed using 0.4mg per 5ml of regadenoson given intravenously over 7-10 seconds. Stress Symptoms Dyspnea Chest pain atypical of angina occurred (Severity , 2 min duration). POST EXERCISE Reason for Termination: Infusion complete Max HR: 79 bpm Max Blood Pressure: 160/86mmHg Chest Pain: Yes. chest tightness, 2 to 3/10; last 2 min Angina index: 2 Arrhythmia: No. ST Change: No. INTERPRETATION Stress EKG Conclusion: Baseline EKG showed sinus rhythm. No ischemic changes at peak stress. No arrhythmias. Imaging Protocol IMAGE PROTOCOL: Rest Tc-99m/stress Tc-99m 1 day Rest: Stress: Viability: Radiopharm. Tc99m Sestamibi Tc99m Sestamibi Dose 10.3mCi 33mCi Duration 13min. 13min. Img Date 03/03/2019 03/03/2019 Inj-Img Time 60min. 60min. Rest Admin Site: IV - Right Antecubital Creative Perfumer: RT Armand (R)(N) Stress Admin Site: IV - Right Antecubital Creative Perfumer: BRITANY Higuera STRESS DATA End Diast. Vol. 71.0ml LVEDV index BSA 38.0ml End Syst. Vol. 15.0ml LVESV index BSA 8.0ml Myocardial Mass 119.0g Eject. Fraction 79.0% Stress Scores Regional WT 0.00 Summed WT 6.00 Regional WM 0.00 Summed WM 2.00 Study quality was good. Left Ventricular size was Normal at Rest and Stress. Lung uptake was . Left Ventricular ejection fraction is 79%. The rest and stress images show normal perfusion, normal contraction and thickening. LV Perf. Quant 17 Seg. SSS 0.00 17 Seg. SRS 2.00 17 Seg. SDS 0.00 Stress Defect Extent (% LAD) 0.00 Rest Defect Extent (% LAD) 8.80 Rev. Defect Extent (% LAD) 0.00 Stress Defect Extent (% LCX) 0.00 Rest Defect Extent (% LCX) 0.00 Rev. Defect Extent (% LCX) 0.00 Stress Defect Extent (% RCA) 0.00 Rest Defect Extent (% RCA) 0.00 Rev. Defect Extent (% RCA) 0.00 Stress Defect Extent (% STACEY) 0.00 Rest Defect Extent (% STACEY) 4.30 Rev. Defect Extent (% STACEY) 0.00 Conclusion 1. Regadenoson cardioisotope stress test did not show any evidence of ischemia or infarct. 2. Normal left ventricular systolic function with ejection fraction calculated at 79%. 3. Low risk for cardiac events. Signed by : Alisa Pasnoori, Electronically Approved : 03/03/2019 14:44:55 DICTATED and SIGNED BY: ALISA SANTORO MD DATE: 03/03/19 1444 PORTABLE CHEST 1V History: Food bolus Comparison: None. Findings: Single view of the chest is submitted. There is cervical fusion hardware. Pericardial cardiac silhouette is within normal limits given technique. There are thoracic spinal stimulator leads. There is no lobar infiltrate, pleural fluid, pneumothorax. There is likely mild atelectasis medial left lung base. No radiopaque foreign body is identified. Impression: 1. No radiopaque foreign body is identified. 2. There is mild likely atelectasis of the medial left lung base. Electronically signed by: Amaury Mayorga MD (06/10/2019 7:27 AM) [facility] PATIENT: SALBADOR HORTA ACCOUNT: [id number] : 1955 LOCATION: [address] [place] [address] AGE: 64 SEX: F EXAM STATUS: ADM IN ORD. PHYSICIAN: ANSHUL WINSTON MD REASON: food impaction/history of fundoplication and sleeve gastrectomy PROCEDURE: ESOPHAGRAM/BARIUM SWALLOW CLINICAL HISTORY: food impaction/history of fundoplication and sleeve gastrectomy COMPARISON: None available. TECHNIQUE:A single contrast esophagram study was performed. Thin barium was administered orally and radiographs were taken under fluoroscopic guidance. Fluoroscopy time: 0.5 MIN FLUORO 26 images submitted FINDINGS: The esophagus demonstrated normal contour. There was no intrinsic or extrinsic filling defects or diverticula seen. Mild mass effect on the esophagus from the aorta. Prompt esophageal emptying. Small hiatal hernia. The gastroesophageal junction was normal in appearance. Numerous tertiary contractions are seen. Reflux to the mid thoracic esophagus. IMPRESSION: 1. No definite intrinsic or extrinsic filling defect of the esophagus is seen although there is mild mass effect on the esophagus from the aortic arch. 2. Prompt gastroesophageal emptying. 3. Small hiatal hernia. 4. Tertiary contractions suggesting delayed motility, presbyesophagus 5. Reflux to the mid thoracic esophagus Electronically signed by: Gunner Piña MD (06/10/2019 9:44 AM) [facility] Assessment and Plan Assessmemt and Plan Problems Medical Problems: (1) Food impaction of esophagus Status: Acute (2) HLD (hyperlipidemia) Status: Chronic (3) HTN (hypertension) Status: Chronic (4) Hypokalemia Status: Acute (5) Narcolepsy Status: Chronic (6) DANE (obstructive sleep apnea) Status: Chronic Comment Review of Relevant I have reviewed the following items luis (where applicable) has been applied. Labs Laboratory Tests Test 06/09/19 19:01 06/10/19 04:20 White Blood Count 8.2 x10^3/uL (4.0-11.0) Red Blood Count 4.36 x10^6/uL (3.50-5.40) Hemoglobin 15.1 g/dL (12.0-15.5) Hematocrit 42.5 % (36.0-47.0) Mean Corpuscular Volume 98 fL (79-100) Mean Corpuscular Hemoglobin 35 pg (25-35) Mean Corpuscular Hemoglobin Concent 36 g/dL (31-37) Red Cell Distribution Width 12.4 % (11.5-14.5) Platelet Count 205 x10^3/uL (140-400) Neutrophils (%) (Auto) 68 % (31-73) Lymphocytes (%) (Auto) 22 % (24-48) Monocytes (%) (Auto) 9 % (0-9) Eosinophils (%) (Auto) 1 % (0-3) Basophils (%) (Auto) 1 % (0-3) Neutrophils # (Auto) 5.5 x10^3/uL (1.8-7.7) Lymphocytes # (Auto) 1.8 x10^3/uL (1.0-4.8) Monocytes # (Auto) 0.8 x10^3/uL (0.0-1.1) Eosinophils # (Auto) 0.0 x10^3/uL (0.0-0.7) Basophils # (Auto) 0.1 x10^3/uL (0.0-0.2) Sodium Level 142 mmol/L (136-145) 141 mmol/L (136-145) Potassium Level 2.7 mmol/L (3.5-5.1) 3.0 mmol/L (3.5-5.1) Chloride Level 101 mmol/L (98-107) 101 mmol/L (98-107) Carbon Dioxide Level 28 mmol/L (21-32) 27 mmol/L (21-32) Anion Gap 13 (6-14) 13 (6-14) Blood Urea Nitrogen 15 mg/dL (7-20) 15 mg/dL (7-20) Creatinine 0.7 mg/dL (0.6-1.0) 0.6 mg/dL (0.6-1.0) Estimated GFR (Cockcroft-Gault) 84.2 100.6 BUN/Creatinine Ratio 21 (6-20) Glucose Level 78 mg/dL (70-99) 76 mg/dL (70-99) Calcium Level 9.7 mg/dL (8.5-10.1) 9.3 mg/dL (8.5-10.1) Magnesium Level 1.9 mg/dL (1.8-2.4) Total Bilirubin 0.7 mg/dL (0.2-1.0) Aspartate Amino Transf (AST/SGOT) 26 U/L (15-37) Alanine Aminotransferase (ALT/SGPT) 21 U/L (14-59) Alkaline Phosphatase 130 U/L (46-116) Total Protein 7.7 g/dL (6.4-8.2) Albumin 3.8 g/dL (3.4-5.0) Albumin/Globulin Ratio 1.0 (1.0-1.7) Lipase 116 U/L (73-393) Medications Current Medications Sodium Chloride 1,000 ml @ 1,000 mls/hr 1X ONCE IV Last administered on 06/09/19at 19:11; Start 06/09/19 at 18:30; Stop 06/09/19 at 19:29; Status DC Ondansetron HCl (Zofran) 4 mg 1X ONCE IV Last administered on 06/09/19at 19:11; Start 06/09/19 at 19:00; Stop 06/09/19 at 19:01; Status DC Fentanyl Citrate (Fentanyl 2ml Vial) 50 mcg 1X ONCE IV Last administered on 06/09/19at 20:00; Start 06/09/19 at 20:00; Stop 06/09/19 at 20:01; Status DC Potassium Chloride/Water 100 ml @ 100 mls/hr Q1H IV Last administered on 06/10/19at 02:19; Start 06/09/19 at 20:30; Stop 06/10/19 at 00:29; Status DC Ondansetron HCl (Zofran) 4 mg PRN Q8HRS PRN IV NAUSEA/VOMITING Last administered on 06/09/19at 23:21; Start 06/09/19 at 20:00; Stop 06/10/19 at 19:59; Status DC Fentanyl Citrate (Fentanyl 2ml Vial) 50 mcg PRN Q1HR PRN IV PAIN; Start 06/09/19 at 20:00; Stop 06/10/19 at 19:59; Status DC Sodium Chloride 1,000 ml @ 75 mls/hr [id number] IV Last administered on 06/09/19at 23:01; Start 06/09/19 at 19:48; Stop 06/10/19 at 19:47; Status DC Propofol 20 ml @ As Directed STK-MED ONCE IV ; Start 06/09/19 at 20:17; Stop 06/09/19 at 20:17; Status DC Ringer's Solution 1,000 ml @ 0 mls/hr Q0M IV ; Start 06/09/19 at 21:30 Propofol 20 ml @ As Directed STK-MED ONCE IV ; Start 06/09/19 at 21:26; Stop 06/09/19 at 21:27; Status DC Ringer's Solution 1,000 ml @ 75 mls/hr [id number] IV Last administered on 06/11/19at 03:55; Start 06/09/19 at 22:00 Fentanyl (Duragesic 75mcg/ Hr Patch) 1 patch Q3DAYS TD Last administered on 06/09/19at 23:21; Start 06/09/19 at 23:00 Barium Sulfate (Liquid E-Z Paque) 355 ml 1X ONCE PO Last administered on 06/10/19at 08:31; Start 06/10/19 at 07:45; Stop 06/10/19 at 07:46; Status DC Barium Sulfate (E-Z-Hd) 340 gm 1X ONCE PO ; Start 06/10/19 at 07:45; Stop 06/10/19 at 07:46; Status DC Simethicone/ Sodium Bicarb/ Citric Ac (E-Z-Gas) 1 packet 1X ONCE PO ; Start 06/10/19 at 07:45; Stop 06/10/19 at 07:46; Status DC Potassium Chloride/Water 100 ml @ 100 mls/hr Q1H IV Last administered on 06/10/19 15:55; Start 06/10/19 at 10:00; Stop 06/10/19 at 13:59; Status DC Magnesium Sulfate/ Dextrose 100 ml @ 100 mls/hr 1X ONCE IV Last administered on 06/10/19 09:38; Start 06/10/19 at 10:00; Stop 06/10/19 at 10:59; Status DC Amlodipine Besylate (Norvasc) 5 mg DAILY PO Last administered on 06/11/19 08:29; Start 06/10/19 at 10:00 Aripiprazole (Abilify) 5 mg DAILY PO Last administered on 06/11/19 08:29; St art 06/10/19 at 10:00 Atorvastatin Calcium (Lipitor) 40 mg HS PO Last administered on 06/10/19 20:55; Start 06/10/19 at 21:00 Fentanyl (Duragesic 75mcg/ Hr Patch) 1 patch Q72H TD ; Start 06/10/19 at 09:30; Status UNV Hydroxychloroquine Sulfate (Plaquenil) 200 mg DAILY PO Last administered on 06/11/19 08:29; Start 06/10/19 at 10:00 Potassium Chloride (Klor-Con) 10 meq DAILY PO Last administered on 06/11/19 08:29; Start 06/10/19 at 10:00 Non-Formulary Medication (Cevimeline Hcl ) 30 mg TID PO ; Start 06/10/19 at 14:00; Status UNV Pantoprazole Sodium (Protonix) 40 mg DAILYAC PO Last administered on 06/11/19 07:37; Start 06/10/19 at 10:00 Duloxetine HCl (Cymbalta) 60 mg DAILY PO Last administered on 06/11/19 08:29; Start 06/10/19 at 10:00 Non-Formulary Medication (Modafinil ) 200 mg DAILY PO ; Start 06/11/19 at 09:00; Status UNV Active Scripts Active Reported FENTANYL 75mcg/hr (Fentanyl) 1 Each Patch.td72 1 Patch TD Q72H Plaquenil (Hydroxychloroquine Sulfate) 200 Mg Tablet 200 Mg PO DAILY Modafinil 200 Mg Tablet 200 Mg PO DAILY Klor-Con 10 (Potassium Chloride) 10 Meq Tablet.er 10 Meq PO DAILY Losartan-Hctz 100-12.5 Mg Tab (Losartan/Hydrochlorothiazide) 1 Each Tablet 1 Each PO DAILY Fentanyl Citrate-Ns 600 Mcg/30 (Fentanyl Citrate-0.9 % NaCl/Pf) 600 Mcg/30 Ml Grocery Sacker.vial 600 Mcg IJ Q 72 HRS Cymbalta (Duloxetine Hcl) 60 Mg Capsule.dr 60 Mg PO DAILY Cevimeline Hcl 30 Mg Capsule 30 Mg PO TID Dexilant (Dexlansoprazole) 60 Mg Cap..mp 60 Mg PO DAILY Atorvastatin Calcium 40 Mg Tablet 40 Mg PO HS Amlodipine Besylate 5 Mg Tablet 5 Mg PO DAILY Abilify (Aripiprazole) 5 Mg Tablet 5 Mg PO DAILY Vitals/I & O Vital Sign - Last 24 Hours 06/10/19 06/10/19 06/10/19 06/10/19 07:30 08:04 11:33 11:35 Temp 97.5 97.4 97.5 97.4 Pulse 69 72 72 Resp 14 15 B/P (MAP) 137/56 (83) 132/57 (82) 132/57 Pulse Ox 96 98 O2 Delivery Room Air Room Air Room Air O2 Flow Rate 2.0 06/10/19 06/10/19 06/10/19 06/10/19 15:15 19:43 20:06 23:14 Temp 97.8 98.1 98.3 97.8 98.1 98.3 Pulse 65 65 60 Resp 15 16 16 B/P (MAP) 144/57 (86) 140/65 (90) 135/74 (94) Pulse Ox 93 96 95 O2 Delivery Room Air Room Air Room Air Room Air 06/11/19 06/11/19 06/11/19 03:20 07:00 08:29 Temp 97.6 98.6 97.6 98.6 Pulse 61 63 63 Resp 16 16 B/P (MAP) 140/71 (94) 129/98 (108) 129/98 Pulse Ox 95 98 O2 Delivery Room Air Room Air Intake and Output 06/10/19 06/11/19 06/11/19 17:00 01:00 09:00 Intake Total 200 ml 375 ml 500 ml Balance 200 ml 375 ml 500 ml ALBERTO GARCIA MD Jun 11, 2019 09:25
[2019-06-11 09:48] LABS: BASO % 1 % (0-3); EOS # 0.2 x10^3/uL (0.0-0.7); EOS % 3 % (0-3); HEMOGLOBIN 13.4 g/dL (12.0-15.5); LYMPH # 1.7 x10^3/uL (1.0-4.8); LYMPH % 29 % (24-48); MEAN CORPUSCULAR HEMOGLOBIN 35 pg (25-35); MEAN CORPUSCULAR HGB CONC 35 g/dL (31-37); MEAN CORPUSCULAR VOLUME 98 fL (79-100); MONO # 0.7 x10^3/uL (0.0-1.1); MONO % 11 % (0-9); NEUT # 3.4 x10^3/uL (1.8-7.7); NEUT % 56 % (31-73); PLATELET COUNT 226 x10^3/uL (140-400); RED BLOOD COUNT 3.89 x10^6/uL (3.50-5.40); RED CELL DISTRIBUTION WIDTH 12.5 % (11.5-14.5)
[2019-06-11 10:06] LABS: ALBUMIN 3.2 g/dL (3.4-5.0); ALBUMIN/GLOBULIN RATIO 0.9 (1.0-1.7); CALCIUM 8.9 mg/dL (8.5-10.1); CREATININE 0.6 mg/dL (0.6-1.0); GFR 100.6; MAGNESIUM 1.6 mg/dL (1.8-2.4); TOTAL BILIRUBIN 0.6 mg/dL (0.2-1.0); TOTAL PROTEIN 6.6 g/dL (6.4-8.2)
[2019-06-11 10:08] LABS: POTASSIUM 2.8 mmol/L (3.5-5.1)
[2019-06-11 11:00] VITALS: BP 142/65
[2019-06-11] MEDS ORDERED: MAGNESIUM SULFATE 2GM 50 ML IV SCH (11:00)
[2019-06-11] MEDS ORDERED: MAGNESIUM SULFATE 2GM 50 ML IV ONE (11:00)
[2019-06-11] MEDS: POTASSIUM CHLORIDE 10MEQ 100 ML IV SCH ×4 (11:11→15:38)
[2019-06-11] MEDS ORDERED: POTASSIUM CHLORIDE 20 MEQ TABLET.ER. PO ONE (11:30)
[2019-06-11] MEDS: LOPERAMIDE 2 MG CAPSULE PO PRN (11:31)
--- NOTE | 2019-06-11 12:09 | PDOC ---
Subjective: Subjective: No issues swallowing, still on full liquids, wants to eat more. Objective: Objective: Noticed stool studies ordered after I saw - called nurse - pt reported 7 stools this morning. Remains inpt w/ hypokalemia. Vital Signs: Vital Signs Date Time Temp Pulse Resp B/P (MAP) Pulse Ox O2 Delivery O2 Flow Rate FiO2 06/11/19 11:00 98.1 66 16 142/65 (90) 97 Room Air 98.1 06/10/19 08:04 2.0 Labs: Laboratory Tests Test 06/11/19 08:40 White Blood Count 6.0 x10^3/uL Red Blood Count 3.89 x10^6/uL Hemoglobin 13.4 g/dL Hematocrit 38.0 % Mean Corpuscular Volume 98 fL Mean Corpuscular Hemoglobin 35 pg Mean Corpuscular Hemoglobin Concent 35 g/dL Red Cell Distribution Width 12.5 % Platelet Count 226 x10^3/uL Neutrophils (%) (Auto) 56 % Lymphocytes (%) (Auto) 29 % Monocytes (%) (Auto) 11 % Eosinophils (%) (Auto) 3 % Basophils (%) (Auto) 1 % Neutrophils # (Auto) 3.4 x10^3/uL Lymphocytes # (Auto) 1.7 x10^3/uL Monocytes # (Auto) 0.7 x10^3/uL Eosinophils # (Auto) 0.2 x10^3/uL Basophils # (Auto) 0.0 x10^3/uL Sodium Level 140 mmol/L Potassium Level 2.8 mmol/L Chloride Level 102 mmol/L Carbon Dioxide Level 28 mmol/L Anion Gap 10 Blood Urea Nitrogen 11 mg/dL Creatinine 0.6 mg/dL Estimated GFR (Cockcroft-Gault) 100.6 BUN/Creatinine Ratio 18 Glucose Level 144 mg/dL Calcium Level 8.9 mg/dL Magnesium Level 1.6 mg/dL Total Bilirubin 0.6 mg/dL Aspartate Amino Transf (AST/SGOT) 23 U/L Alanine Aminotransferase (ALT/SGPT) 21 U/L Alkaline Phosphatase 104 U/L Total Protein 6.6 g/dL Albumin 3.2 g/dL Albumin/Globulin Ratio 0.9 Imaging: Barium Swallow IMPRESSION: 1. No definite intrinsic or extrinsic filling defect of the esophagus is seen although there is mild mass effect on the esophagus from the aortic arch. 2. Prompt gastroesophageal emptying. 3. Small hiatal hernia. 4. Tertiary contractions suggesting delayed motility, presbyesophagus 5. Reflux to the mid thoracic esophagus PE: GEN: NAD LUNGS: CTAB HEART: RRR ABD: S/ND/NT NEURO/PSYCH: A & O �3 A/P: Presbyesophagus/GERD Diarrhea Hypomagnesemia, hypokalemia -- Soft diet. Continue PPI. Stool studies ordered, could add C Diff - getting magnesium and had barium yesterday - ?contributing ADAM REDMAN Jun 11, 2019 12:09
[2019-06-11 15:00] VITALS: BP 157/81
--- NOTE | 2019-06-11 17:43 | RAD ---
EXAM: 3 Views Right Shoulder DATE: 06/11/2019 11:32 AM INDICATION: COMPARISON: No Prior FINDINGS: There is no evidence for acute fracture or dislocation. AC joint is congruent. Mild AC joint degenerative change. Humeral head is not high riding. IMPRESSION: 1. No acute fracture or dislocation. Electronically signed by: Gunner Piña MD (06/11/2019 5:41 PM) [facility]
[2019-06-11 19:32] VITALS: BP 132/58
[2019-06-11] MEDS: ATORVASTATIN CALCIUM 40 MG TABLET. PO SCH (21:45)
[2019-06-11 23:44] VITALS: BP 146/57
[2019-06-12 03:38] VITALS: BP 133/57
[2019-06-12] MEDS: IV RINGERS,LACTATED 1000ML 1,000 ML IV SCH ×2 (06:05→17:11)
[2019-06-12 07:00] VITALS: BP 127/64
[2019-06-12 07:21] LABS: BASO # 0.1 x10^3/uL (0.0-0.2); BASO % 1 % (0-3); EOS # 0.3 x10^3/uL (0.0-0.7); EOS % 4 % (0-3); HEMATOCRIT 37.8 % (36.0-47.0); HEMOGLOBIN 13.1 g/dL (12.0-15.5); LYMPH # 2.2 x10^3/uL (1.0-4.8); LYMPH % 37 % (24-48); MEAN CORPUSCULAR HEMOGLOBIN 34 pg (25-35); MEAN CORPUSCULAR HGB CONC 35 g/dL (31-37); MEAN CORPUSCULAR VOLUME 98 fL (79-100); MONO # 0.8 x10^3/uL (0.0-1.1); MONO % 13 % (0-9); NEUT # 2.8 x10^3/uL (1.8-7.7); NEUT % 45 % (31-73); PLATELET COUNT 223 x10^3/uL (140-400); RED BLOOD COUNT 3.85 x10^6/uL (3.50-5.40); RED CELL DISTRIBUTION WIDTH 12.6 % (11.5-14.5); WHITE BLOOD COUNT 6.1 x10^3/uL (4.0-11.0)
[2019-06-12 07:48] LABS: ALBUMIN 3.2 g/dL (3.4-5.0); CALCIUM 9.1 mg/dL (8.5-10.1); CREATININE 0.6 mg/dL (0.6-1.0); GFR 100.6; TOTAL BILIRUBIN 0.4 mg/dL (0.2-1.0); TOTAL PROTEIN 6.4 g/dL (6.4-8.2)
[2019-06-12] MEDS: DULoxetine HCL 30 MG CAPSULE.DR PO SCH (08:34)
[2019-06-12] MEDS: PANTOPRAZOLE 40 MG TABLET.DR. PO SCH (08:34)
[2019-06-12] MEDS: POTASSIUM CHLORIDE 10 MEQ TABLET.ER. PO SCH (08:35)
[2019-06-12] MEDS: amLODIPine BESYLATE 5 MG TABLET PO SCH (08:35)
[2019-06-12] MEDS: HYDROXYCHLOROQUINE 200 MG TABLET PO SCH (08:35)
[2019-06-12] MEDS: ARIPiprazole 5 MG TABLET PO SCH (08:35)
[2019-06-12] MEDS: POTASSIUM CHLORIDE 10MEQ 100 ML IV SCH ×4 (08:36→12:32)
[2019-06-12] MEDS: NON FORMULARY ITEM (Modafinil 200 MG) PO SCH (08:38)
[2019-06-12] MEDS: CEVIMELINE 30 MG PO SCH ×3 (08:38→21:00)
[2019-06-12] MEDS: LOPERAMIDE 2 MG CAPSULE PO PRN (09:48)
--- NOTE | 2019-06-12 10:24 | PDOC ---
PROGRESS NOTES History of Present Illness History of Present Illness VTE Prophylaxis Ordered VTE Prophylaxis Devices: No VTE Pharmacological Prophylaxi: No Assessment/Plan Assessment/Plan A/P: Impacted food bolus - successfully removed. Barium swallow pending. F/u GI recs, ON BARIUM SWALLOW No definite intrinsic or extrinsic filling defect of the esophagus is seen although there is mild mass effect on the esophagus from the aortic arch. Prompt gastroesophageal emptying. Small hiatal hernia. Tertiary contractions suggesting delayed motility, presbyesophagus Reflux to the mid thoracic esophagus Hypokalemia - possibly 2/2 HCTZ, I advised her to ask her PCP about considering alternatives. Replaced 4 doses IV, will replace another 4 IV, check mag Sjogren's - cont cevilimine HTN - stable, cont meds HLP- cont statin .03/11 Regadenoson cardioisotope stress test did not show any evidence of ischemia or infarct. OA - monitor DANE on CPAP - home CPAP Narcolepsy - on modafanil, GERD s/p leticia - severe reflux Obesity - S/P sleeve gastrectromy. Has f/u HYPOKALEMIA, MAY NOT TOLERATE ORAL K WELL diarrhea FEN - Liquid diet when ok with GI PPX - Ambulatory FULL CODE Dispo - CONT potassium IV replacement , MG REPLACEMENT stool culture AM SERUM ALDOSTERONE 06/13 SERUM CORTISOL AM, PM 27 MIN PT EXAM, CHART REVIEW, > 50% OF TIME SPENT WITH EXAM, CHART REVIEW, PT CARE COORDINATION Vitals Vitals Vital Signs Date Time Temp Pulse Resp B/P (MAP) Pulse Ox O2 Delivery O2 Flow Rate FiO2 06/12/19 08:39 67 127/64 06/12/19 08:00 Room Air 06/12/19 07:00 98.3 17 98 98.3 Physical Exam General: Alert, Oriented X3, Cooperative, No acute distress Heart: Regular rate, No murmurs Lungs: Clear Abdomen: Normal bowel sounds, Soft, No tenderness, No hepatosplenomegaly, No masses Extremities: No clubbing, No cyanosis, No edema, Normal pulses, No tenderness/swelling Skin: No rashes, No breakdown, No significant lesion Labs LABS Laboratory Tests Test 06/12/19 05:55 White Blood Count 6.1 x10^3/uL (4.0-11.0) Red Blood Count 3.85 x10^6/uL (3.50-5.40) Hemoglobin 13.1 g/dL (12.0-15.5) Hematocrit 37.8 % (36.0-47.0) Mean Corpuscular Volume 98 fL (79-100) Mean Corpuscular Hemoglobin 34 pg (25-35) Mean Corpuscular Hemoglobin Concent 35 g/dL (31-37) Red Cell Distribution Width 12.6 % (11.5-14.5) Platelet Count 223 x10^3/uL (140-400) Neutrophils (%) (Auto) 45 % (31-73) Lymphocytes (%) (Auto) 37 % (24-48) Monocytes (%) (Auto) 13 % (0-9) Eosinophils (%) (Auto) 4 % (0-3) Basophils (%) (Auto) 1 % (0-3) Neutrophils # (Auto) 2.8 x10^3/uL (1.8-7.7) Lymphocytes # (Auto) 2.2 x10^3/uL (1.0-4.8) Monocytes # (Auto) 0.8 x10^3/uL (0.0-1.1) Eosinophils # (Auto) 0.3 x10^3/uL (0.0-0.7) Basophils # (Auto) 0.1 x10^3/uL (0.0-0.2) Sodium Level 146 mmol/L (136-145) Potassium Level 3.0 mmol/L (3.5-5.1) Chloride Level 108 mmol/L (98-107) Carbon Dioxide Level 30 mmol/L (21-32) Anion Gap 8 (6-14) Blood Urea Nitrogen 8 mg/dL (7-20) Creatinine 0.6 mg/dL (0.6-1.0) Estimated GFR (Cockcroft-Gault) 100.6 BUN/Creatinine Ratio 13 (6-20) Glucose Level 105 mg/dL (70-99) Calcium Level 9.1 mg/dL (8.5-10.1) Total Bilirubin 0.4 mg/dL (0.2-1.0) Aspartate Amino Transf (AST/SGOT) 21 U/L (15-37) Alanine Aminotransferase (ALT/SGPT) 20 U/L (14-59) Alkaline Phosphatase 97 U/L (46-116) Total Protein 6.4 g/dL (6.4-8.2) Albumin 3.2 g/dL (3.4-5.0) Albumin/Globulin Ratio 1.0 (1.0-1.7) Cortisol AM Sample 16.4 ug/dL (4.3-22.4) Assessment and Plan Assessmemt and Plan Problems Medical Problems: (1) Food impaction of esophagus Status: Acute (2) HLD (hyperlipidemia) Status: Chronic (3) HTN (hypertension) Status: Chronic (4) Hypokalemia Status: Acute (5) Narcolepsy Status: Chronic (6) DANE (obstructive sleep apnea) Status: Chronic Comment Review of Relevant I have reviewed the following items luis (where applicable) has been applied. Labs Laboratory Tests Test 06/11/19 08:40 06/12/19 05:55 White Blood Count 6.0 x10^3/uL (4.0-11.0) 6.1 x10^3/uL (4.0-11.0) Red Blood Count 3.89 x10^6/uL (3.50-5.40) 3.85 x10^6/uL (3.50-5.40) Hemoglobin 13.4 g/dL (12.0-15.5) 13.1 g/dL (12.0-15.5) Hematocrit 38.0 % (36.0-47.0) 37.8 % (36.0-47.0) Mean Corpuscular Volume 98 fL (79-100) 98 fL (79-100) Mean Corpuscular Hemoglobin 35 pg (25-35) 34 pg (25-35) Mean Corpuscular Hemoglobin Concent 35 g/dL (31-37) 35 g/dL (31-37) Red Cell Distribution Width 12.5 % (11.5-14.5) 12.6 % (11.5-14.5) Platelet Count 226 x10^3/uL (140-400) 223 x10^3/uL (140-400) Neutrophils (%) (Auto) 56 % (31-73) 45 % (31-73) Lymphocytes (%) (Auto) 29 % (24-48) 37 % (24-48) Monocytes (%) (Auto) 11 % (0-9) 13 % (0-9) Eosinophils (%) (Auto) 3 % (0-3) 4 % (0-3) Basophils (%) (Auto) 1 % (0-3) 1 % (0-3) Neutrophils # (Auto) 3.4 x10^3/uL (1.8-7.7) 2.8 x10^3/uL (1.8-7.7) Lymphocytes # (Auto) 1.7 x10^3/uL (1.0-4.8) 2.2 x10^3/uL (1.0-4.8) Monocytes # (Auto) 0.7 x10^3/uL (0.0-1.1) 0.8 x10^3/uL (0.0-1.1) Eosinophils # (Auto) 0.2 x10^3/uL (0.0-0.7) 0.3 x10^3/uL (0.0-0.7) Basophils # (Auto) 0.0 x10^3/uL (0.0-0.2) 0.1 x10^3/uL (0.0-0.2) Sodium Level 140 mmol/L (136-145) 146 mmol/L (136-145) Potassium Level 2.8 mmol/L (3.5-5.1) 3.0 mmol/L (3.5-5.1) Chloride Level 102 mmol/L (98-107) 108 mmol/L (98-107) Carbon Dioxide Level 28 mmol/L (21-32) 30 mmol/L (21-32) Anion Gap 10 (6-14) 8 (6-14) Blood Urea Nitrogen 11 mg/dL (7-20) 8 mg/dL (7-20) Creatinine 0.6 mg/dL (0.6-1.0) 0.6 mg/dL (0.6-1.0) Estimated GFR (Cockcroft-Gault) 100.6 100.6 BUN/Creatinine Ratio 18 (6-20) 13 (6-20) Glucose Level 144 mg/dL (70-99) 105 mg/dL (70-99) Calcium Level 8.9 mg/dL (8.5-10.1) 9.1 mg/dL (8.5-10.1) Magnesium Level 1.6 mg/dL (1.8-2.4) Total Bilirubin 0.6 mg/dL (0.2-1.0) 0.4 mg/dL (0.2-1.0) Aspartate Amino Transf (AST/SGOT) 23 U/L (15-37) 21 U/L (15-37) Alanine Aminotransferase (ALT/SGPT) 21 U/L (14-59) 20 U/L (14-59) Alkaline Phosphatase 104 U/L (46-116) 97 U/L (46-116) Total Protein 6.6 g/dL (6.4-8.2) 6.4 g/dL (6.4-8.2) Albumin 3.2 g/dL (3.4-5.0) 3.2 g/dL (3.4-5.0) Albumin/Globulin Ratio 0.9 (1.0-1.7) 1.0 (1.0-1.7) Cortisol AM Sample 16.4 ug/dL (4.3-22.4) Laboratory Tests Test 06/12/19 05:55 White Blood Count 6.1 x10^3/uL (4.0-11.0) Red Blood Count 3.85 x10^6/uL (3.50-5.40) Hemoglobin 13.1 g/dL (12.0-15.5) Hematocrit 37.8 % (36.0-47.0) Mean Corpuscular Volume 98 fL (79-100) Mean Corpuscular Hemoglobin 34 pg (25-35) Mean Corpuscular Hemoglobin Concent 35 g/dL (31-37) Red Cell Distribution Width 12.6 % (11.5-14.5) Platelet Count 223 x10^3/uL (140-400) Neutrophils (%) (Auto) 45 % (31-73) Lymphocytes (%) (Auto) 37 % (24-48) Monocytes (%) (Auto) 13 % (0-9) Eosinophils (%) (Auto) 4 % (0-3) Basophils (%) (Auto) 1 % (0-3) Neutrophils # (Auto) 2.8 x10^3/uL (1.8-7.7) Lymphocytes # (Auto) 2.2 x10^3/uL (1.0-4.8) Monocytes # (Auto) 0.8 x10^3/uL (0.0-1.1) Eosinophils # (Auto) 0.3 x10^3/uL (0.0-0.7) Basophils # (Auto) 0.1 x10^3/uL (0.0-0.2) Sodium Level 146 mmol/L (136-145) Potassium Level 3.0 mmol/L (3.5-5.1) Chloride Level 108 mmol/L (98-107) Carbon Dioxide Level 30 mmol/L (21-32) Anion Gap 8 (6-14) Blood Urea Nitrogen 8 mg/dL (7-20) Creatinine 0.6 mg/dL (0.6-1.0) Estimated GFR (Cockcroft-Gault) 100.6 BUN/Creatinine Ratio 13 (6-20) Glucose Level 105 mg/dL (70-99) Calcium Level 9.1 mg/dL (8.5-10.1) Total Bilirubin 0.4 mg/dL (0.2-1.0) Aspartate Amino Transf (AST/SGOT) 21 U/L (15-37) Alanine Aminotransferase (ALT/SGPT) 20 U/L (14-59) Alkaline Phosphatase 97 U/L (46-116) Total Protein 6.4 g/dL (6.4-8.2) Albumin 3.2 g/dL (3.4-5.0) Albumin/Globulin Ratio 1.0 (1.0-1.7) Cortisol AM Sample 16.4 ug/dL (4.3-22.4) Medications Current Medications Sodium Chloride 1,000 ml @ 1,000 mls/hr 1X ONCE IV Last administered on 06/09/19at 19:11; Start 06/09/19 at 18:30; Stop 06/09/19 at 19:29; Status DC Ondansetron HCl (Zofran) 4 mg 1X ONCE IV Last administered on 06/09/19at 19:11; Start 06/09/19 at 19:00; Stop 06/09/19 at 19:01; Status DC Fentanyl Citrate (Fentanyl 2ml Vial) 50 mcg 1X ONCE IV Last administered on 06/09/19at 20:00; Start 06/09/19 at 20:00; Stop 06/09/19 at 20:01; Status DC Potassium Chloride/Water 100 ml @ 100 mls/hr Q1H IV Last administered on 06/10/19at 02:19; Start 06/09/19 at 20:30; Stop 06/10/19 at 00:29; Status DC Ondansetron HCl (Zofran) 4 mg PRN Q8HRS PRN IV NAUSEA/VOMITING Last adm inistered on 06/09/19at 23:21; Start 06/09/19 at 20:00; Stop 06/10/19 at 19:59; Status DC Fentanyl Citrate (Fentanyl 2ml Vial) 50 mcg PRN Q1HR PRN IV PAIN; Start 06/09/19 at 20:00; Stop 06/10/19 at 19:59; Status DC Sodium Chloride 1,000 ml @ 75 mls/hr [id number] IV Last administered on 06/09/19at 23:01; Start 06/09/19 at 19:48; Stop 06/10/19 at 19:47; Status DC Propofol 20 ml @ As Directed STK-MED ONCE IV ; Start 06/09/19 at 20:17; Stop 06/09/19 at 20:17; Status DC Ringer's Solution 1,000 ml @ 0 mls/hr Q0M IV ; Start 06/09/19 at 21:30 Propofol 20 ml @ As Directed STK-MED ONCE IV ; Start 06/09/19 at 21:26; Stop 06/09/19 at 21:27; Status DC Ringer's Solution 1,000 ml @ 75 mls/hr [id number] IV Last administered on 06/12/19at 06:05; Start 06/09/19 at 22:00 Fentanyl (Duragesic 75mcg/ Hr Patch) 1 patch Q3DAYS TD Last administered on 06/09/19at 23:21; Start 06/09/19 at 23:00 Barium Sulfate (Liquid E-Z Paque) 355 ml 1X ONCE PO Last administered on 06/10/19at 08:31; Start 06/10/19 at 07:45; Stop 06/10/19 at 07:46; Status DC Barium Sulfate (E-Z-Hd) 340 gm 1X ONCE PO ; Start 06/10/19 at 07:45; Stop 06/10/19 at 07:46; Status DC Simethicone/ Sodium Bicarb/ Citric Ac (E-Z-Gas) 1 packet 1X ONCE PO ; Start 06/10/19 at 07:45; Stop 06/10/19 at 07:46; Status DC Potassium Chloride/Water 100 ml @ 100 mls/hr Q1H IV Last administered on 06/10/19 15:55; Start 06/10/19 at 10:00; Stop 06/10/19 at 13:59; Status DC Magnesium Sulfate/ Dextrose 100 ml @ 100 mls/hr 1X ONCE IV Last administered on 06/10/19 09:38; Start 06/10/19 at 10:00; Stop 06/10/19 at 10:59; Status DC Amlodipine Besylate (Norvasc) 5 mg DAILY PO Last administered on 06/12/19 08:39; Start 06/10/19 at 10:00 Aripiprazole (Abilify) 5 mg DAILY PO Last administered on 06/12/19 08:39; Start 06/10/19 at 10:00 Atorvastatin Calcium (Lipitor) 40 mg HS PO Last administered on 06/11/19 21:46; Start 06/10/19 at 21:00 Fentanyl (Duragesic 75mcg/ Hr Patch) 1 patch Q72H TD ; Start 06/10/19 at 09:30; Status UNV Hydroxychloroquine Sulfate (Plaquenil) 200 mg DAILY PO Last administered on 06/12/19 08:39; Start 06/10/19 at 10:00 Potassium Chloride (Klor-Con) 10 meq DAILY PO Last administered on 06/12/19 08:39; Start 06/10/19 at 10:00 Non-Formulary Medication (Cevimeline Hcl ) 30 mg TID PO ; Start 06/10/19 at 14:00; Status UNV Pantoprazole Sodium (Protonix) 40 mg DAILYAC PO Last administered on 06/12/19 08:39; Start 06/10/19 at 10:00 Duloxetine HCl (Cymbalta) 60 mg DAILY PO Last administered on 06/12/19 08:39; Start 06/10/19 at 10:00 Non-Formulary Medication (Modafinil ) 200 mg DAILY PO ; Start 06/11/19 at 09:00; Status UNV Potassium Chloride/Water 100 ml @ 100 mls/hr Q1H IV Last administered on 06/11/19 15:38; Start 06/11/19 at 11:00; Stop 06/11/19 at 14:59; Status DC Magnesium Sulfate 50 ml @ 25 mls/hr Q24H IV Last administered on 06/11/19at 11:17; Start 06/11/19 at 11:00; Stop 06/11/19 at 12:59; Status DC Magnesium Sulfate 50 ml @ 25 mls/hr 1X ONCE IV ; Start 06/11/19 at 11:00; Stop 06/11/19 at 12:59; Status UNV Potassium Chloride (Klor-Con) 40 meq 1X ONCE PO ; Start 06/11/19 at 11:30; Stop 06/11/19 at 11:20; Status DC Loperamide HCl (Imodium) 2 mg PRN Q8HRS PRN PO DIARRHEA Last administered on 06/12/19at 09:48; Start 06/11/19 at 11:30 Potassium Chloride/Water 100 ml @ 100 mls/hr Q1H IV Last administered on 06/12/19at 08:39; Start 06/12/19 at 08:00; Stop 06/12/19 at 11:59 Active Scripts Active Reported FENTANYL 75mcg/hr (Fentanyl) 1 Each Patch.td72 1 Patch TD Q72H Plaquenil (Hydroxychloroquine Sulfate) 200 Mg Tablet 200 Mg PO DAILY Modafinil 200 Mg Tablet 200 Mg PO DAILY Klor-Con 10 (Potassium Chloride) 10 Meq Tablet.er 10 Meq PO DAILY Losartan-Hctz 100-12.5 Mg Tab (Losartan/Hydrochlorothiazide) 1 Each Tablet 1 Each PO DAILY Fentanyl Citrate-Ns 600 Mcg/30 (Fentanyl Citrate-0.9 % NaCl/Pf) 600 Mcg/30 Ml Operator Assistant I Cementing.vial 600 Mcg IJ Q 72 HRS Cymbalta (Duloxetine Hcl) 60 Mg Capsule.dr 60 Mg PO DAILY Cevimeline Hcl 30 Mg Capsule 30 Mg PO TID Dexilant (Dexlansoprazole) 60 Mg Cap. 60 Mg PO DAILY Atorvastatin Calcium 40 Mg Tablet 40 Mg PO HS Amlodipine Besylate 5 Mg Tablet 5 Mg PO DAILY Abilify (Aripiprazole) 5 Mg Tablet 5 Mg PO DAILY Vitals/I & O Vital Sign - Last 24 Hours 06/11/19 06/11/19 06/11/19 06/11/19 08:29 11:00 15:00 19:32 Temp 98.1 98.3 98.4 98.1 98.3 98.4 Pulse 63 66 69 65 Resp 16 16 18 B/P (MAP) 129/98 142/65 (90) 157/81 (106) 132/58 (82) Pulse Ox 97 96 97 O2 Delivery Room Air Room Air Room Air 06/11/19 06/11/19 06/12/19 06/12/19 20:00 23:44 03:38 07:00 Temp 98.3 98.3 98.3 98.3 98.3 98.3 Pulse 64 66 67 Resp 18 18 17 B/P (MAP) 146/57 (86) 133/57 (82) 127/64 (85) Pulse Ox 96 97 98 O2 Delivery Room Air Room Air Room Air Room Air 06/12/19 06/12/19 08:00 08:39 Pulse 67 B/P (MAP) 127/64 O2 Delivery Room Air Intake and Output 06/11/19 06/12/19 06/12/19 16:59 00:59 08:59 Intake Total 350 ml 650 ml 300 ml Balance 350 ml 650 ml 300 ml ALBERTO GARCIA MD Jun 12, 2019 10:24
[2019-06-12 11:00] VITALS: BP 149/85
--- NOTE | 2019-06-12 13:16 | PDOC ---
Subjective: Subjective: Swallowing okay - was brought turkey last night so she didn't eat that. Had one large loose stool this morning, taking Imodium. Objective: Vital Signs: Vital Signs Date Time Temp Pulse Resp B/P (MAP) Pulse Ox O2 Delivery O2 Flow Rate FiO2 06/12/19 11:00 97.7 79 18 149/85 (106) 99 Room Air 97.7 Labs: Laboratory Tests Test 06/12/19 05:55 White Blood Count 6.1 x10^3/uL Red Blood Count 3.85 x10^6/uL Hemoglobin 13.1 g/dL Hematocrit 37.8 % Mean Corpuscular Volume 98 fL Mean Corpuscular Hemoglobin 34 pg Mean Corpuscular Hemoglobin Concent 35 g/dL Red Cell Distribution Width 12.6 % Platelet Count 223 x10^3/uL Neutrophils (%) (Auto) 45 % Lymphocytes (%) (Auto) 37 % Monocytes (%) (Auto) 13 % Eosinophils (%) (Auto) 4 % Basophils (%) (Auto) 1 % Neutrophils # (Auto) 2.8 x10^3/uL Lymphocytes # (Auto) 2.2 x10^3/uL Monocytes # (Auto) 0.8 x10^3/uL Eosinophils # (Auto) 0.3 x10^3/uL Basophils # (Auto) 0.1 x10^3/uL Sodium Level 146 mmol/L Potassium Level 3.0 mmol/L Chloride Level 108 mmol/L Carbon Dioxide Level 30 mmol/L Anion Gap 8 Blood Urea Nitrogen 8 mg/dL Creatinine 0.6 mg/dL Estimated GFR (Cockcroft-Gault) 100.6 BUN/Creatinine Ratio 13 Glucose Level 105 mg/dL Calcium Level 9.1 mg/dL Total Bilirubin 0.4 mg/dL Aspartate Amino Transf (AST/SGOT) 21 U/L Alanine Aminotransferase (ALT/SGPT) 20 U/L Alkaline Phosphatase 97 U/L Total Protein 6.4 g/dL Albumin 3.2 g/dL Albumin/Globulin Ratio 1.0 Cortisol AM Sample 16.4 ug/dL PE: GEN: NAD - on the phone - her mother is in the ER LUNGS: CTAB HEART: RRR ABD: S/ND/NT NEURO/PSYCH: A & O �3 A/P: Presbyesophagus/GERD Loose stools -- Soft diet. Continue PPI. Follow-up w/ Dr. Holt in the office. ADAM REDMAN Jun 12, 2019 13:16
[2019-06-12 14:59] LABS: BILIRUBIN,URINE NEGATIVE (NEG); CLARITY,URINE CLEAR; COLOR,URINE YELLOW; NITRITE,URINE NEGATIVE (NEG); PH,URINE 7.5; PROTEIN,URINE NEGATIVE (NEG-TRACE); UROBILINOGEN,URINE 0.2 mg/dL (0.2 mg/dL)
[2019-06-12 15:00] VITALS: BP 153/81
[2019-06-12 15:07] LABS: SQUAMOUS EPITHELIAL CELL,UR MOD /LPF
[2019-06-12 15:08] LABS: BACTERIA,URINE MODERATE /HPF (0-FEW); WBC,URINE 0 /HPF (0-4); YEAST,URINE PRESENT /HPF
--- NOTE | 2019-06-12 15:16 | PDOC2 ---
CONSULT Date of Consult Date of Consult DATE: 06/12/19 TIME: 14:58 Reason for Consult Reason for Consult: " Possible RTA " per Dr. Mendoza Referring Physician Referring Physician: Dr. Mendoza Identification/Chief Complaint Chief Complaint None currently Source Source: Caregiver, Chart review History of Present Illness Reason for Visit: Pt is a 64 yo F w/ PMHx Sjogren's, HTN, DANE on CPAP, narcolepsy, GERD s/p leticia, sleeve gastrectromy who presents with food stuck in her esophagus. She was eating chicken on 06/07 at night when she felt it get stuck in her esophagus. Patient states she had not been able to eat any food since then. Was able to get down liquid but threw it back up. She had a similar episode in November as well Went for EGD with Dr. Holt with successful push-through removal of food bolus. Her potassium was 2.7, given 4 doses of 10meq overnight, still low this morning. Patient denies any pain at this time. Patient denies any shortness of breath. No states she did take a few Naproxen . Denies taking Fish oil, CoQ and MVI OTC On losartan/HCTZ , PPI , KCL BID at home . Denies any urinary complaint . Had Low K in past as well but chronic runs mildly low K Past Medical History Cardiovascular: HTN, Hyperlipidemia Pulmonary: Other (DANE on CPAP) GI: GERD Heme/Onc: No pertinent hx Rheumatologic: Other (Sjogrens) Infectious disease: No pertinent hx ENT: No pertinent hx Renal/: No pertinent hx Endocrine: No pertinent hx Dermatology: No pertinent hx Past Surgical History Past Surgical History: Other (Sleeve gastrectomy, Leticia) Family History Family History: High Cholestrol, Hypertension Social History No ALCOHOL: none Drugs: None Current Problem List Problem List Problems Medical Problems: (1) Food impaction of esophagus Status: Acute (2) HLD (hyperlipidemia) Status: Chronic (3) HTN (hypertension) Status: Chronic (4) Hypokalemia Status: Acute (5) Narcolepsy Status: Chronic (6) DANE (obstructive sleep apnea) Status: Chronic Current Medications Current Medications Current Medications Sodium Chloride 1,000 ml @ 1,000 mls/hr 1X ONCE IV Last administered on 06/09/19at 19:11; Start 06/09/19 at 18:30; Stop 06/09/19 at 19:29; Status DC Ondansetron HCl (Zofran) 4 mg 1X ONCE IV Last administered on 06/09/19at 19:11; Start 06/09/19 at 19:00; Stop 06/09/19 at 19:01; Status DC Fentanyl Citrate (Fentanyl 2ml Vial) 50 mcg 1X ONCE IV Last administered on 06/09/19at 20:00; Start 06/09/19 at 20:00; Stop 06/09/19 at 20:01; Status DC Potassium Chloride/Water 100 ml @ 100 mls/hr Q1H IV Last administered on 06/10/19at 02:19; Start 06/09/19 at 20:30; Stop 06/10/19 at 00:29; Status DC Ondansetron HCl (Zofran) 4 mg PRN Q8HRS PRN IV NAUSEA/VOMITING Last administered on 06/09/19at 23:21; Start 06/09/19 at 20:00; Stop 06/10/19 at 19:59; Status DC Fentanyl Citrate (Fentanyl 2ml Vial) 50 mcg PRN Q1HR PRN IV PAIN; Start 06/09/19 at 20:00; Stop 06/10/19 at 19:59; Status DC Sodium Chloride 1,000 ml @ 75 mls/hr [id number] IV Last administered on 06/09/19at 23:01; Start 06/09/19 at 19:48; Stop 06/10/19 at 19:47; Status DC Propofol 20 ml @ As Directed STK-MED ONCE IV ; Start 06/09/19 at 20:17; Stop 06/09/19 at 20:17; Status DC Ringer's Solution 1,000 ml @ 0 mls/hr Q0M IV ; Start 06/09/19 at 21:30 Propofol 20 ml @ As Directed STK-MED ONCE IV ; Start 06/09/19 at 21:26; Stop 06/09/19 at 21:27; Status DC Ringer's Solution 1,000 ml @ 75 mls/hr [id number] IV Last administered on 06/12/19at 06:05; Start 06/09/19 at 22:00 Fentanyl (Duragesic 75mcg/ Hr Patch) 1 patch Q3DAYS TD Last administered on 06/09/19at 23:21; Start 06/09/19 at 23:00 Barium Sulfate (Liquid E-Z Paque) 355 ml 1X ONCE PO Last administered on 06/10/19 08:31; Start 06/10/19 at 07:45; Stop 06/10/19 at 07:46; Status DC Barium Sulfate (E-Z-Hd) 340 gm 1X ONCE PO ; Start 06/10/19 at 07:45; Stop 06/10/19 at 07:46; Status DC Simethicone/ Sodium Bicarb/ Citric Ac (E-Z-Gas) 1 packet 1X ONCE PO ; Start 06/10/19 at 07:45; Stop 06/10/19 at 07:46; Status DC Potassium Chloride/Water 100 ml @ 100 mls/hr Q1H IV Last administered on 06/10/19at 15:55; Start 06/10/19 at 10:00; Stop 06/10/19 at 13:59; Status DC Magnesium Sulfate/ Dextrose 100 ml @ 100 mls/hr 1X ONCE IV Last administered on 06/10/19at 09:38; Start 06/10/19 at 10:00; Stop 06/10/19 at 10:59; Status DC Amlodipine Besylate (Norvasc) 5 mg DAILY PO Last administered on 06/12/19 08:39; Start 06/10/19 at 10:00 Aripiprazole (Abilify) 5 mg DAILY PO Last administered on 06/12/19 08:39; Start 06/10/19 at 10:00 Atorvastatin Calcium (Lipitor) 40 mg HS PO Last administered on 06/11/19at 21:46; Start 06/10/19 at 21:00 Fentanyl (Duragesic 75mcg/ Hr Patch) 1 patch Q72H TD ; Start 06/10/19 at 09:30; Status UNV Hydroxychloroquine Sulfate (Plaquenil) 200 mg DAILY PO Last administered on 06/12/19 08:39; Start 06/10/19 at 10:00 Potassium Chloride (Klor-Con) 10 meq DAILY PO Last administered on 06/12/19at 08:39; Start 06/10/19 at 10:00 Non-Formulary Medication (Cevimeline Hcl ) 30 mg TID PO ; Start 06/10/19 at 14:00; Status UNV Pantoprazole Sodium (Protonix) 40 mg DAILYAC PO Last administered on 06/12/19at 08:39; Start 06/10/19 at 10:00 Duloxetine HCl (Cymbalta) 60 mg DAILY PO Last administered on 06/12/19at 08:39; Start 06/10/19 at 10:00 Non-Formulary Medication (Modafinil ) 200 mg DAILY PO ; Start 06/11/19 at 09:00; Status UNV Potassium Chloride/Water 100 ml @ 100 mls/hr Q1H IV Last administered on 06/11/19at 15:38; Start 06/11/19 at 11:00; Stop 06/11/19 at 14:59; Status DC Magnesium Sulfate 50 ml @ 25 mls/hr Q24H IV Last administered on 06/11/19at 11:17; Start 06/11/19 at 11:00; Stop 06/11/19 at 12:59; Status DC Magnesium Sulfate 50 ml @ 25 mls/hr 1X ONCE IV ; Start 06/11/19 at 11:00; Stop 06/11/19 at 12:59; Status UNV Potassium Chloride (Klor-Con) 40 meq 1X ONCE PO ; Start 06/11/19 at 11:30; Stop 06/11/19 at 11:20; Status DC Loperamide HCl (Imodium) 2 mg PRN Q8HRS PRN PO DIARRHEA Last administered on 06/12/19at 09:48; Start 06/11/19 at 11:30 Potassium Chloride/Water 100 ml @ 100 mls/hr Q1H IV Last administered on 06/12/19at 12:32; Start 06/12/19 at 08:00; Stop 06/12/19 at 11:59; Status DC Lidocaine (Lidoderm) 1 patch DAILY TD ; Start 06/13/19 at 13:00 Miscellaneous (Lidoderm Patch Removal) 1 ea QHS MC ; Start 06/12/19 at 21:00 Active Scripts Active Reported FENTANYL 75mcg/hr (Fentanyl) 1 Each Patch.td72 1 Patch TD Q72H Plaquenil (Hydroxychloroquine Sulfate) 200 Mg Tablet 200 Mg PO DAILY Modafinil 200 Mg Tablet 200 Mg PO DAILY Klor-Con 10 (Potassium Chloride) 10 Meq Tablet.er 10 Meq PO DAILY Losartan-Hctz 100-12.5 Mg Tab (Losartan/Hydrochlorothiazide) 1 Each Tablet 1 Each PO DAILY Fentanyl Citrate-Ns 600 Mcg/30 (Fentanyl Citrate-0.9 % NaCl/Pf) 600 Mcg/30 Ml Biology Professor.vial 600 Mcg IJ Q 72 HRS Cymbalta (Duloxetine Hcl) 60 Mg Capsule.dr 60 Mg PO DAILY Cevimeline Hcl 30 Mg Capsule 30 Mg PO TID Dexilant (Dexlansoprazole) 60 Mg Cap. 60 Mg PO DAILY Atorvastatin Calcium 40 Mg Tablet 40 Mg PO HS Amlodipine Besylate 5 Mg Tablet 5 Mg PO DAILY Abilify (Aripiprazole) 5 Mg Tablet 5 Mg PO DAILY Allergies Allergies: Coded Allergies: No Known Drug Allergies (Unverified , 12/11/18) ROS Review of System Per HPI Physical Exam Physical Exam General: No acute distress HEENT: OM moist Neck supple Lungs: Clear to auscultation, Normal air movement Heart: S1S2, RRR, no gallops, no murmurs Abdomen: Normal bowel sounds, Soft, No tenderness, Extremities: No clubbing, No cyanosis, No edema, Skin: No rashes Neuro:Grossly normal No best Vital Signs Vital Signs Date Time Temp Pulse Resp B/P (MAP) Pulse Ox O2 Delivery O2 Flow Rate FiO2 06/12/19 11:00 97.7 79 18 149/85 (106) 99 Room Air 97.7 Assessment & Plan ?? RTA- per primary Bicarb on high side of normal , Does have Dx of Sjogren's but bicarb normal Correct K Hypokalemia - chronic, On HCTZ as well worse likely due to poor PO intake due to impacted food bolus Replace as indicated Hypernatremia- Mild, likely poor PO intake Impacted food bolus - successfully removed. HTN - stable, cont meds,agree with dc HCTZ Narcolepsy - on modafanil, GERD s/p leticia - Obesity - S/P sleeve gastrectromy. Labs Labs Laboratory Tests Test 06/11/19 08:40 06/12/19 05:55 White Blood Count 6.0 x10^3/uL (4.0-11.0) 6.1 x10^3/uL (4.0-11.0) Red Blood Count 3.89 x10^6/uL (3.50-5.40) 3.85 x10^6/uL (3.50-5.40) Hemoglobin 13.4 g/dL (12.0-15.5) 13.1 g/dL (12.0-15.5) Hematocrit 38.0 % (36.0-47.0) 37.8 % (36.0-47.0) Mean Corpuscular Volume 98 fL (79-100) 98 fL (79-100) Mean Corpuscular Hemoglobin 35 pg (25-35) 34 pg (25-35) Mean Corpuscular Hemoglobin Concent 35 g/dL (31-37) 35 g/dL (31-37) Red Cell Distribution Width 12.5 % (11.5-14.5) 12.6 % (11.5-14.5) Platelet Count 226 x10^3/uL (140-400) 223 x10^3/uL (140-400) Neutrophils (%) (Auto) 56 % (31-73) 45 % (31-73) Lymphocytes (%) (Auto) 29 % (24-48) 37 % (24-48) Monocytes (%) (Auto) 11 % (0-9) 13 % (0-9) Eosinophils (%) (Auto) 3 % (0-3) 4 % (0-3) Basophils (%) (Auto) 1 % (0-3) 1 % (0-3) Neutrophils # (Auto) 3.4 x10^3/uL (1.8-7.7) 2.8 x10^3/uL (1.8-7.7) Lymphocytes # (Auto) 1.7 x10^3/uL (1.0-4.8) 2.2 x10^3/uL (1.0-4.8) Monocytes # (Auto) 0.7 x10^3/uL (0.0-1.1) 0.8 x10^3/uL (0.0-1.1) Eosinophils # (Auto) 0.2 x10^3/uL (0.0-0.7) 0.3 x10^3/uL (0.0-0.7) Basophils # (Auto) 0.0 x10^3/uL (0.0-0.2) 0.1 x10^3/uL (0.0-0.2) Sodium Level 140 mmol/L (136-145) 146 mmol/L (136-145) Potassium Level 2.8 mmol/L (3.5-5.1) 3.0 mmol/L (3.5-5.1) Chloride Level 102 mmol/L (98-107) 108 mmol/L (98-107) Carbon Dioxide Level 28 mmol/L (21-32) 30 mmol/L (21-32) Anion Gap 10 (6-14) 8 (6-14) Blood Urea Nitrogen 11 mg/dL (7-20) 8 mg/dL (7-20) Creatinine 0.6 mg/dL (0.6-1.0) 0.6 mg/dL (0.6-1.0) Estimated GFR (Cockcroft-Gault) 100.6 100.6 BUN/Creatinine Ratio 18 (6-20) 13 (6-20) Glucose Level 144 mg/dL (70-99) 105 mg/dL (70-99) Calcium Level 8.9 mg/dL (8.5-10.1) 9.1 mg/dL (8.5-10.1) Magnesium Level 1.6 mg/dL (1.8-2.4) Total Bilirubin 0.6 mg/dL (0.2-1.0) 0.4 mg/dL (0.2-1.0) Aspartate Amino Transf (AST/SGOT) 23 U/L (15-37) 21 U/L (15-37) Alanine Aminotransferase (ALT/SGPT) 21 U/L (14-59) 20 U/L (14-59) Alkaline Phosphatase 104 U/L (46-116) 97 U/L (46-116) Total Protein 6.6 g/dL (6.4-8.2) 6.4 g/dL (6.4-8.2) Albumin 3.2 g/dL (3.4-5.0) 3.2 g/dL (3.4-5.0) Albumin/Globulin Ratio 0.9 (1.0-1.7) 1.0 (1.0-1.7) Cortisol AM Sample 16.4 ug/dL (4.3-22.4) Laboratory Tests Test 06/12/19 05:55 White Blood Count 6.1 x10^3/uL (4.0-11.0) Red Blood Count 3.85 x10^6/uL (3.50-5.40) Hemoglobin 13.1 g/dL (12.0-15.5) Hematocrit 37.8 % (36.0-47.0) Mean Corpuscular Volume 98 fL (79-100) Mean Corpuscular Hemoglobin 34 pg (25-35) Mean Corpuscular Hemoglobin Concent 35 g/dL (31-37) Red Cell Distribution Width 12.6 % (11.5-14.5) Platelet Count 223 x10^3/uL (140-400) Neutrophils (%) (Auto) 45 % (31-73) Lymphocytes (%) (Auto) 37 % (24-48) Monocytes (%) (Auto) 13 % (0-9) Eosinophils (%) (Auto) 4 % (0-3) Basophils (%) (Auto) 1 % (0-3) Neutrophils # (Auto) 2.8 x10^3/uL (1.8-7.7) Lymphocytes # (Auto) 2.2 x10^3/uL (1.0-4.8) Monocytes # (Auto) 0.8 x10^3/uL (0.0-1.1) Eosinophils # (Auto) 0.3 x10^3/uL (0.0-0.7) Basophils # (Auto) 0.1 x10^3/uL (0.0-0.2) Sodium Level 146 mmol/L (136-145) Potassium Level 3.0 mmol/L (3.5-5.1) Chloride Level 108 mmol/L (98-107) Carbon Dioxide Level 30 mmol/L (21-32) Anion Gap 8 (6-14) Blood Urea Nitrogen 8 mg/dL (7-20) Creatinine 0.6 mg/dL (0.6-1.0) Estimated GFR (Cockcroft-Gault) 100.6 BUN/Creatinine Ratio 13 (6-20) Glucose Level 105 mg/dL (70-99) Calcium Level 9.1 mg/dL (8.5-10.1) Total Bilirubin 0.4 mg/dL (0.2-1.0) Aspartate Amino Transf (AST/SGOT) 21 U/L (15-37) Alanine Aminotransferase (ALT/SGPT) 20 U/L (14-59) Alkaline Phosphatase 97 U/L (46-116) Total Protein 6.4 g/dL (6.4-8.2) Albumin 3.2 g/dL (3.4-5.0) Albumin/Globulin Ratio 1.0 (1.0-1.7) Cortisol AM Sample 16.4 ug/dL (4.3-22.4) Review All relevant outside records, renal labs, imaging studies, telemetry/EKG's were reviewed. MARCELA ORLANDO MD Jun 12, 2019 15:16
[2019-06-12 19:48] VITALS: BP 169/96
[2019-06-12] MEDS: ATORVASTATIN CALCIUM 40 MG TABLET. PO SCH (20:24)
[2019-06-12] MEDS: PATCH REMOVAL. MC SCH (20:25)
[2019-06-12 23:29] VITALS: BP 173/112
[2019-06-13] MEDS: fentaNYL 75MCG/HR PATCH 1 PATCH PATCH.TD72 TD SCH (00:25)
[2019-06-13] MEDS: LABETALOL 20 MG/4 ML DISP.SYRIN. IVP PRN ×3 (01:04→23:44)
[2019-06-13 03:41] VITALS: BP 144/65
[2019-06-13] MEDS: PANTOPRAZOLE 40 MG TABLET.DR. PO SCH (05:11)
[2019-06-13] MEDS: IV RINGERS,LACTATED 1000ML 1,000 ML IV SCH ×2 (05:13→21:21)
[2019-06-13 05:39] LABS: CREATININE 0.7 mg/dL (0.6-1.0); GFR 84.2
--- NOTE | 2019-06-13 07:44 | PDOC ---
PROGRESS NOTES History of Present Illness History of Present Illness VTE Prophylaxis Ordered VTE Prophylaxis Devices: No VTE Pharmacological Prophylaxi: No Assessment/Plan Assessment/Plan A/P: Impacted food bolus - successfully removed. Barium swallow pending. F/u GI recs, ON BARIUM SWALLOW No definite intrinsic or extrinsic filling defect of the esophagus is seen although there is mild mass effect on the esophagus from the aortic arch. Prompt gastroesophageal emptying. Small hiatal hernia. Tertiary contractions suggesting delayed motility, presbyesophagus Reflux to the mid thoracic esophagus Hypokalemia - possibly 2/2 HCTZ, I advised her to ask her PCP about considering alternatives. Replaced 4 doses IV, will replace another 4 IV, check mag Sjogren's - cont cevilimine HTN - stable, cont meds HLP- cont statin .03/11 Regadenoson cardioisotope stress test did not show any evidence of ischemia or infarct. OA - monitor DANE on CPAP - home CPAP Narcolepsy - on modafanil, GERD s/p leticia - severe reflux Obesity - S/P sleeve gastrectromy. Has f/u HYPOKALEMIA, TOLERATED ORAL K WELL TODAY diarrhea possible RTA FEN - Liquid diet when ok with GI PPX - Ambulatory FULL CODE Dispo - CONT potassium IV replacement , MG REPLACEMENT stool culture AM SERUM ALDOSTERONE 06/13 SERUM CORTISOL AM, PM URINARY K, NA 39 MIN PT EXAM, CHART REVIEW, > 50% OF TIME SPENT WITH EXAM, CHART REVIEW, PT CARE COORDINATION Vitals Vitals Vital Signs Date Time Temp Pulse Resp B/P (MAP) Pulse Ox O2 Delivery O2 Flow Rate FiO2 06/13/19 04:28 18 96 Room Air 2.0 06/13/19 03:41 97.6 60 144/65 (91) 97.6 Physical Exam General: Alert, Oriented X3, Cooperative, No acute distress Heart: Regular rate, No murmurs Lungs: Clear Abdomen: Normal bowel sounds, Soft, No tenderness, No hepatosplenomegaly, No masses Extremities: No clubbing, No cyanosis, No edema, Normal pulses, No tenderness/swelling Skin: No rashes, No breakdown, No significant lesion Labs LABS Laboratory Tests Test 06/12/19 12:45 06/12/19 15:13 06/13/19 04:35 Urine Collection Type Unknown Urine Color Yellow Urine Clarity Clear Urine pH 7.5 Urine Specific [place] 1.015 Urine Protein Negative mg/dL (NEG-TRACE) Urine Glucose (UA) Negative mg/dL (NEG) Urine Ketones (Stick) Trace mg/dL (NEG) Urine Blood Trace (NEG) Urine Nitrite Negative (NEG) Urine Bilirubin Negative (NEG) Urine Urobilinogen Dipstick 0.2 mg/dL (0.2 mg/dL) Urine Leukocyte Esterase Negative (NEG) Urine RBC 6-10 /HPF (0-2) Urine WBC 0 /HPF (0-4) Urine Squamous Epithelial Cells Mod /LPF Urine Bacteria Moderate /HPF (0-FEW) Urine Mucus Marked /LPF Urine Yeast Present /HPF Urine Random Calcium 14.8 mg/dL (Not Estab.) Cortisol PM Sample 13.0 ug/dL (3.1-16.7) Sodium Level 144 mmol/L (136-145) Potassium Level 3.0 mmol/L (3.5-5.1) Chloride Level 107 mmol/L (98-107) Carbon Dioxide Level 29 mmol/L (21-32) Anion Gap 8 (6-14) Blood Urea Nitrogen 11 mg/dL (7-20) Creatinine 0.7 mg/dL (0.6-1.0) Estimated GFR (Cockcroft-Gault) 84.2 Glucose Level 117 mg/dL (70-99) Calcium Level 9.0 mg/dL (8.5-10.1) Assessment and Plan Assessmemt and Plan Problems Medical Problems: (1) Food impaction of esophagus Status: Acute (2) HLD (hyperlipidemia) Status: Chronic (3) HTN (hypertension) Status: Chronic (4) Hypokalemia Status: Acute (5) Narcolepsy Status: Chronic (6) DANE (obstructive sleep apnea) Status: Chronic Comment Review of Relevant I have reviewed the following items luis (where applicable) has been applied. Labs Laboratory Tests Test 06/11/19 08:40 06/12/19 05:55 06/12/19 12:45 06/12/19 15:13 White Blood Count 6.0 x10^3/uL (4.0-11.0) 6.1 x10^3/uL (4.0-11.0) Red Blood Count 3.89 x10^6/uL (3.50-5.40) 3.85 x10^6/uL (3.50-5.40) Hemoglobin 13.4 g/dL (12.0-15.5) 13.1 g/dL (12.0-15.5) Hematocrit 38.0 % (36.0-47.0) 37.8 % (36.0-47.0) Mean Corpuscular Volume 98 fL (79-100) 98 fL (79-100) Mean Corpuscular Hemoglobin 35 pg (25-35) 34 pg (25-35) Mean Corpuscular Hemoglobin Concent 35 g/dL (31-37) 35 g/dL (31-37) Red Cell Distribution Width 12.5 % (11.5-14.5) 12.6 % (11.5-14.5) Platelet Count 226 x10^3/uL (140-400) 223 x10^3/uL (140-400) Neutrophils (%) (Auto) 56 % (31-73) 45 % (31-73) Lymphocytes (%) (Auto) 29 % (24-48) 37 % (24-48) Monocytes (%) (Auto) 11 % (0-9) 13 % (0-9) Eosinophils (%) (Auto) 3 % (0-3) 4 % (0-3) Basophils (%) (Auto) 1 % (0-3) 1 % (0-3) Neutrophils # (Auto) 3.4 x10^3/uL (1.8-7.7) 2.8 x10^3/uL (1.8-7.7) Lymphocytes # (Auto) 1.7 x10^3/uL (1.0-4.8) 2.2 x10^3/uL (1.0-4.8) Monocytes # (Auto) 0.7 x10^3/uL (0.0-1.1) 0.8 x10^3/uL (0.0-1.1) Eosinophils # (Auto) 0.2 x10^3/uL (0.0-0.7) 0.3 x10^3/uL (0.0-0.7) Basophils # (Auto) 0.0 x10^3/uL (0.0-0.2) 0.1 x10^3/uL (0.0-0.2) Sodium Level 140 mmol/L (136-145) 146 mmol/L (136-145) Potassium Level 2.8 mmol/L (3.5-5.1) 3.0 mmol/L (3.5-5.1) Chloride Level 102 mmol/L (98-107) 108 mmol/L (98-107) Carbon Dioxide Level 28 mmol/L (21-32) 30 mmol/L (21-32) Anion Gap 10 (6-14) 8 (6-14) Blood Urea Nitrogen 11 mg/dL (7-20) 8 mg/dL (7-20) Creatinine 0.6 mg/dL (0.6-1.0) 0.6 mg/dL (0.6-1.0) Estimated GFR (Cockcroft-Gault) 100.6 100.6 BUN/Creatinine Ratio 18 (6-20) 13 (6-20) Glucose Level 144 mg/dL (70-99) 105 mg/dL (70-99) Calcium Level 8.9 mg/dL (8.5-10.1) 9.1 mg/dL (8.5-10.1) Magnesium Level 1.6 mg/dL (1.8-2.4) Total Bilirubin 0.6 mg/dL (0.2-1.0) 0.4 mg/dL (0.2-1.0) Aspartate Amino Transf (AST/SGOT) 23 U/L (15-37) 21 U/L (15-37) Alanine Aminotransferase (ALT/SGPT) 21 U/L (14-59) 20 U/L (14-59) Alkaline Phosphatase 104 U/L (46-116) 97 U/L (46-116) Total Protein 6.6 g/dL (6.4-8.2) 6.4 g/dL (6.4-8.2) Albumin 3.2 g/dL (3.4-5.0) 3.2 g/dL (3.4-5.0) Albumin/Globulin Ratio 0.9 (1.0-1.7) 1.0 (1.0-1.7) Cortisol AM Sample 16.4 ug/dL (4.3-22.4) Urine Collection Type Unknown Urine Color Yellow Urine Clarity Clear Urine pH 7.5 Urine Specific [place] 1.015 Urine Protein Negative mg/dL (NEG-TRACE) Urine Glucose (UA) Negative mg/dL (NEG) Urine Ketones (Stick) Trace mg/dL (NEG) Urine Blood Trace (NEG) Urine Nitrite Negative (NEG) Urine Bilirubin Negative (NEG) Urine Urobilinogen Dipstick 0.2 mg/dL (0.2 mg/dL) Urine Leukocyte Esterase Negative (NEG) Urine RBC 6-10 /HPF (0-2) Urine WBC 0 /HPF (0-4) Urine Squamous Epithelial Cells Mod /LPF Urine Bacteria Moderate /HPF (0-FEW) Urine Mucus Marked /LPF Urine Yeast Present /HPF Urine Random Calcium 14.8 mg/dL (Not Estab.) Cortisol PM Sample 13.0 ug/dL (3.1-16.7) Test 06/13/19 04:35 Sodium Level 144 mmol/L (136-145) Potassium Level 3.0 mmol/L (3.5-5.1) Chloride Level 107 mmol/L (98-107) Carbon Dioxide Level 29 mmol/L (21-32) Anion Gap 8 (6-14) Blood Urea Nitrogen 11 mg/dL (7-20) Creatinine 0.7 mg/dL (0.6-1.0) Estimated GFR (Cockcroft-Gault) 84.2 Glucose Level 117 mg/dL (70-99) Calcium Level 9.0 mg/dL (8.5-10.1) Laboratory Tests Test 06/12/19 12:45 06/12/19 15:13 06/13/19 04:35 Urine Collection Type Unknown Urine Color Yellow Urine Clarity Clear Urine pH 7.5 Urine Specific [place] 1.015 Urine Protein Negative mg/dL (NEG-TRACE) Urine Glucose (UA) Negative mg/dL (NEG) Urine Ketones (Stick) Trace mg/dL (NEG) Urine Blood Trace (NEG) Urine Nitrite Negative (NEG) Urine Bilirubin Negative (NEG) Urine Urobilinogen Dipstick 0.2 mg/dL (0.2 mg/dL) Urine Leukocyte Esterase Negative (NEG) Urine RBC 6-10 /HPF (0-2) Urine WBC 0 /HPF (0-4) Urine Squamous Epithelial Cells Mod /LPF Urine Bacteria Moderate /HPF (0-FEW) Urine Mucus Marked /LPF Urine Yeast Present /HPF Urine Random Calcium 14.8 mg/dL (Not Estab.) Cortisol PM Sample 13.0 ug/dL (3.1-16.7) Sodium Level 144 mmol/L (136-145) Potassium Level 3.0 mmol/L (3.5-5.1) Chloride Level 107 mmol/L (98-107) Carbon Dioxide Level 29 mmol/L (21-32) Anion Gap 8 (6-14) Blood Urea Nitrogen 11 mg/dL (7-20) Creatinine 0.7 mg/dL (0.6-1.0) Estimated GFR (Cockcroft-Gault) 84.2 Glucose Level 117 mg/dL (70-99) Calcium Level 9.0 mg/dL (8.5-10.1) Medications Current Medications Sodium Chloride 1,000 ml @ 1,000 mls/hr 1X ONCE IV Last administered on 06/09/19at 19:11; Start 06/09/19 at 18:30; Stop 06/09/19 at 19:29; Status DC Ondansetron HCl (Zofran) 4 mg 1X ONCE IV Last administered on 06/09/19at 19:11; Start 06/09/19 at 19:00; Stop 06/09/19 at 19:01; Status DC Fentanyl Citrate (Fentanyl 2ml Vial) 50 mcg 1X ONCE IV Last administered on at 20:00; Start 06/09/19 at 20:00; Stop 06/09/19 at 20:01; Status DC Potassium Chloride/Water 100 ml @ 100 mls/hr Q1H IV Last administered on 06/10/19at 02:19; Start 06/09/19 at 20:30; Stop 06/10/19 at 00:29; Status DC Ondansetron HCl (Zofran) 4 mg PRN Q8HRS PRN IV NAUSEA/VOMITING Last administered on 06/09/19at 23:21; Start 06/09/19 at 20:00; Stop 06/10/19 at 19:59; Status DC Fentanyl Citrate (Fentanyl 2ml Vial) 50 mcg PRN Q1HR PRN IV PAIN; Start 06/09/19 at 20:00; Stop 06/10/19 at 19:59; Status DC Sodium Chloride 1,000 ml @ 75 mls/hr [id number] IV Last administered on 06/09/19at 23:01; Start 06/09/19 at 19:48; Stop 06/10/19 at 19:47; Status DC Propofol 20 ml @ As Directed STK-MED ONCE IV ; Start 06/09/19 at 20:17; Stop 06/09/19 at 20:17; Status DC Ringer's Solution 1,000 ml @ 0 mls/hr Q0M IV ; Start 06/09/19 at 21:30 Propofol 20 ml @ As Directed STK-MED ONCE IV ; Start 06/09/19 at 21:26; Stop 06/09/19 at 21:27; Status DC Ringer's Solution 1,000 ml @ 75 mls/hr [id number] IV Last administered on 06/13/19at 05:13; Start 06/09/19 at 22:00 Fentanyl (Duragesic 75mcg/ Hr Patch) 1 patch Q3DAYS TD Last administered on 06/13/19at 00:25; Start 06/09/19 at 23:00 Barium Sulfate (Liquid E-Z Paque) 355 ml 1X ONCE PO Last administered on 06/10/19at 08:31; Start 06/10/19 at 07:45; Stop 06/10/19 at 07:46; Status DC Barium Sulfate (E-Z-Hd) 340 gm 1X ONCE PO ; Start 06/10/19 at 07:45; Stop 06/10/19 at 07:46; Status DC Simethicone/ Sodium Bicarb/ Citric Ac (E-Z-Gas) 1 packet 1X ONCE PO ; Start 06/10/19 at 07:45; Stop 06/10/19 at 07:46; Status DC Potassium Chloride/Water 100 ml @ 100 mls/hr Q1H IV Last administered on 06/10/19at 15:55; Start 06/10/19 at 10:00; Stop 06/10/19 at 13:59; Status DC Magnesium Sulfate/ Dextrose 100 ml @ 100 mls/hr 1X ONCE IV Last administered on 06/10/19at 09:38; Start 06/10/19 at 10:00; Stop 06/10/19 at 10:59; Status DC Amlodipine Besylate (Norvasc) 5 mg DAILY PO Last administered on 06/12/19at 08:39; Start 06/10/19 at 10:00 Aripiprazole (Abilify) 5 mg DAILY PO Last administered on 06/12/19at 08:39; Start 06/10/19 at 10:00 Atorvastatin Calcium (Lipitor) 40 mg HS PO Last administered on 06/12/19at 20:24; Start 06/10/19 at 21:00 Fentanyl (Duragesic 75mcg/ Hr Patch) 1 patch Q72H TD ; Start 06/10/19 at 09:30; Status UNV Hydroxychloroquine Sulfate (Plaquenil) 200 mg DAILY PO Last administered on 06/12/19 08:39; Start 06/10/19 at 10:00 Potassium Chloride (Klor-Con) 10 meq DAILY PO Last administered on 06/12/19 08:39; Start 06/10/19 at 10:00 Non-Formulary Medication (Cevimeline Hcl ) 30 mg TID PO ; Start 06/10/19 at 14:00; Status UNV Pantoprazole Sodium (Protonix) 40 mg DAILYAC PO Last administered on 06/13/19at 05:11; Start 06/10/19 at 10:00 Duloxetine HCl (Cymbalta) 60 mg DAILY PO Last administered on 06/12/19at 08:39; Start 06/10/19 at 10:00 Non-Formulary Medication (Modafinil ) 200 mg DAILY PO ; Start 06/11/19 at 09:00; Status UNV Potassium Chloride/Water 100 ml @ 100 mls/hr Q1H IV Last administered on 06/11/19at 15:38; Start 06/11/19 at 11:00; Stop 06/11/19 at 14:59; Status DC Magnesium Sulfate 50 ml @ 25 mls/hr Q24H IV Last administered on 06/11/19at 11:17; Start 06/11/19 at 11:00; Stop 06/11/19 at 12:59; Status DC Magnesium Sulfate 50 ml @ 25 mls/hr 1X ONCE IV ; Start 06/11/19 at 11:00; Stop 06/11/19 at 12:59; Status UNV Potassium Chloride (Klor-Con) 40 meq 1X ONCE PO ; Start 06/11/19 at 11:30; Stop 06/11/19 at 11:20; Status DC Loperamide HCl (Imodium) 2 mg PRN Q8HRS PRN PO DIARRHEA Last administered on 06/12/19at 09:48; Start 06/11/19 at 11:30 Potassium Chloride/Water 100 ml @ 100 mls/hr Q1H IV Last administered on 06/12/19at 12:32; Start 06/12/19 at 08:00; Stop 06/12/19 at 11:59; Status DC Lidocaine (Lidoderm) 1 patch DAILY TD ; Start 06/13/19 at 13:00 Miscellaneous (Lidoderm Patch Removal) 1 ea QHS MC ; Start 06/12/19 at 21:00 Labetalol HCl (Normodyne Iv Push) 20 mg PRN Q2HR PRN IVP HYPERTENSION Last administered on 06/13/19at 01:04; Start 06/13/19 at 00:30 Active Scripts Active Reported FENTANYL 75mcg/hr (Fentanyl) 1 Each Patch.td72 1 Patch TD Q72H Plaquenil (Hydroxychloroquine Sulfate) 200 Mg Tablet 200 Mg PO DAILY Modafinil 200 Mg Tablet 200 Mg PO DAILY Klor-Con 10 (Potassium Chloride) 10 Meq Tablet.er 10 Meq PO DAILY Losartan-Hctz 100-12.5 Mg Tab (Losartan/Hydrochlorothiazide) 1 Each Tablet 1 Each PO DAILY Fentanyl Citrate-Ns 600 Mcg/30 (Fentanyl Citrate-0.9 % NaCl/Pf) 600 Mcg/30 Ml Upstairs Maid.vial 600 Mcg IJ Q 72 HRS Cymbalta (Duloxetine Hcl) 60 Mg Capsule.dr 60 Mg PO DAILY Cevimeline Hcl 30 Mg Capsule 30 Mg PO TID Dexilant (Dexlansoprazole) 60 Mg Cap. 60 Mg PO DAILY Atorvastatin Calcium 40 Mg Tablet 40 Mg PO HS Amlodipine Besylate 5 Mg Tablet 5 Mg PO DAILY Abilify (Aripiprazole) 5 Mg Tablet 5 Mg PO DAILY Vitals/I & O Vital Sign - Last 24 Hours 06/12/19 06/12/19 06/12/19 06/12/19 08:00 08:39 11:00 15:00 Temp 97.7 98.2 97.7 98.2 Pulse 67 79 70 Resp 18 17 B/P (MAP) 127/64 149/85 (106) 153/81 (105) Pulse Ox 99 97 O2 Delivery Room Air Room Air Room Air 06/12/19 06/12/19 06/12/19 06/13/19 19:48 20:00 23:29 00:25 Temp 97.9 97.8 97.9 97.8 Pulse 74 73 Resp 18 20 B/P (MAP) 169/96 (120) 173/112 (132) Pulse Ox 97 99 O2 Delivery Room Air Room Air Room Air Room Air 06/13/19 06/13/19 06/13/19 01:04 03:41 04:28 Temp 97.6 97.6 Pulse 73 60 Resp 18 18 B/P (MAP) 173/112 144/65 (91) Pulse Ox 96 96 O2 Delivery Room Air Room Air O2 Flow Rate 2.0 Intake and Output 06/12/19 06/12/19 06/13/19 15:00 23:00 07:00 Intake Total 1000 ml 210 ml Output Total 1150 ml Balance 1000 ml -940 ml ALBERTO GARCIA MD Jun 13, 2019 07:44
[2019-06-13 07:47] VITALS: BP 170/70
[2019-06-13] MEDS ORDERED: POTASSIUM CHLORIDE 20 MEQ TABLET.ER. PO ONE ×2 (08:00→11:00)
[2019-06-13] MEDS: ARIPiprazole 5 MG TABLET PO SCH (08:55)
[2019-06-13] MEDS: POTASSIUM CHLORIDE 10 MEQ TABLET.ER. PO SCH (08:55)
[2019-06-13] MEDS: amLODIPine BESYLATE 5 MG TABLET PO SCH (08:56)
[2019-06-13] MEDS: DULoxetine HCL 30 MG CAPSULE.DR PO SCH (08:56)
[2019-06-13] MEDS: HYDROXYCHLOROQUINE 200 MG TABLET PO SCH (08:56)
[2019-06-13 11:15] VITALS: BP 179/80
[2019-06-13] MEDS: CEVIMELINE 30 MG PO SCH ×3 (11:52→21:21)
[2019-06-13] MEDS: LIDOCAINE (700MG/PATCH) PATCH. TD SCH (14:32)
[2019-06-13 15:30] VITALS: BP 158/74
[2019-06-13 19:15] VITALS: BP 171/93
[2019-06-13] MEDS: PATCH REMOVAL. MC SCH (21:00)
[2019-06-13] MEDS: ATORVASTATIN CALCIUM 40 MG TABLET. PO SCH (21:21)
[2019-06-13 23:06] VITALS: BP 180/80
[2019-06-14 03:00] VITALS: BP 129/60
[2019-06-14] MEDS ORDERED: ACETAMINOPHEN 325 MG TABLET. PO PRN (03:45)
[2019-06-14 07:30] VITALS: BP 112/62
[2019-06-14] MEDS: IV RINGERS,LACTATED 1000ML 1,000 ML IV SCH (08:40)
[2019-06-14] MEDS: PANTOPRAZOLE 40 MG TABLET.DR. PO SCH (08:41)
[2019-06-14] MEDS: HYDROXYCHLOROQUINE 200 MG TABLET PO SCH (08:41)
[2019-06-14] MEDS: DULoxetine HCL 30 MG CAPSULE.DR PO SCH (08:41)
[2019-06-14] MEDS: ARIPiprazole 5 MG TABLET PO SCH (08:41)
[2019-06-14] MEDS: POTASSIUM CHLORIDE 10 MEQ TABLET.ER. PO SCH (08:42)
[2019-06-14] MEDS: amLODIPine BESYLATE 5 MG TABLET PO SCH (08:42)
[2019-06-14] MEDS: CEVIMELINE 30 MG PO SCH ×2 (08:43→14:05)
[2019-06-14] MEDS: LIDOCAINE (700MG/PATCH) PATCH. TD SCH (09:17)
--- NOTE | 2019-06-14 10:19 | PDOC ---
PROGRESS NOTES History of Present Illness History of Present Illness VTE Prophylaxis Ordered VTE Prophylaxis Devices: No VTE Pharmacological Prophylaxi: No discharge dx Assessment/Plan A/P: Impacted food bolus - successfully removed. Barium swallow pending. F/u GI recs, ON BARIUM SWALLOW No definite intrinsic or extrinsic filling defect of the esoph darien is seen although there is mild mass effect on the esophagus from the aortic arch. Prompt gastroesophageal emptying. Small hiatal hernia. Tertiary contractions suggesting delayed motility, presbyesophagus Reflux to the mid thoracic esophagus Hypokalemia - possibly 2/2 HCTZ, I advised her to ask her PCP about considering alternatives. Replaced 4 doses IV, will replace another 4 IV, check mag Sjogren's - cont cevilimine HTN - stable, cont meds HLP- cont statin .03/11 Regadenoson cardioisotope stress test did not show any evidence of ischemia or infarct. OA - monitor DANE on CPAP - home CPAP Narcolepsy - on modafanil, GERD s/p leticia - severe reflux Obesity - S/P sleeve gastrectromy. Has f/u HYPOKALEMIA, TOLERATED ORAL K WELL TODAY diarrhea possible RTA FEN - Liquid diet when ok with GI PPX - Ambulatory FULL CODE Dispo - CONT potassium IV replacement , MG REPLACEMENT stool culture AM SERUM ALDOSTERONE 06/13 SERUM CORTISOL AM, PM URINARY K, NA home today if k ok 29 MIN PT EXAM, CHART REVIEW d/c planning , > 50% OF TIME SPENT WITH EXAM, CHART REVIEW, PT CARE COORDINATION Vitals Vitals Vital Signs Date Time Temp Pulse Resp B/P (MAP) Pulse Ox O2 Delivery O2 Flow Rate FiO2 06/14/19 08:43 61 112/62 06/14/19 08:00 Room Air 06/14/19 07:30 97.5 18 95 97.5 Physical Exam General: Alert, Oriented X3, Cooperative, No acute distress Heart: Regular rate, No murmurs Lungs: Clear Abdomen: Normal bowel sounds, Soft, No tenderness, No hepatosplenomegaly, No m asses Extremities: No clubbing, No cyanosis, No edema, Normal pulses, No tenderness/swelling Skin: No rashes, No breakdown, No significant lesion Assessment and Plan Assessmemt and Plan Problems Medical Problems: (1) Food impaction of esophagus Status: Acute (2) HLD (hyperlipidemia) Status: Chronic (3) HTN (hypertension) Status: Chronic (4) Hypokalemia Status: Acute (5) Narcolepsy Status: Chronic (6) DANE (obstructive sleep apnea) Status: Chronic Comment Review of Relevant I have reviewed the following items luis (where applicable) has been applied. Labs Laboratory Tests Test 06/12/19 12:45 06/12/19 15:13 06/13/19 04:35 Urine Collection Type Unknown Urine Color Yellow Urine Clarity Clear Urine pH 7.5 Urine Specific [place] 1.015 Urine Protein Negative mg/dL (NEG-TRACE) Urine Glucose (UA) Negative mg/dL (NEG) Urine Ketones (Stick) Trace mg/dL (NEG) Urine Blood Trace (NEG) Urine Nitrite Negative (NEG) Urine Bilirubin Negative (NEG) Urine Urobilinogen Dipstick 0.2 mg/dL (0.2 mg/dL) Urine Leukocyte Esterase Negative (NEG) Urine RBC 6-10 /HPF (0-2) Urine WBC 0 /HPF (0-4) Urine Squamous Epithelial Cells Mod /LPF Urine Bacteria Moderate /HPF (0-FEW) Urine Mucus Marked /LPF Urine Yeast Present /HPF Urine Random Calcium 14.8 mg/dL (Not Estab.) Cortisol PM Sample 13.0 ug/dL (3.1-16.7) Sodium Level 144 mmol/L (136-145) Potassium Level 3.0 mmol/L (3.5-5.1) Chloride Level 107 mmol/L (98-107) Carbon Dioxide Level 29 mmol/L (21-32) Anion Gap 8 (6-14) Blood Urea Nitrogen 11 mg/dL (7-20) Creatinine 0.7 mg/dL (0.6-1.0) Estimated GFR (Cockcroft-Gault) 84.2 Glucose Level 117 mg/dL (70-99) Calcium Level 9.0 mg/dL (8.5-10.1) Medications Current Medications Sodium Chloride 1,000 ml @ 1,000 mls/hr 1X ONCE IV Last administered on 06/09/19at 19:11; Start 06/09/19 at 18:30; Stop 06/09/19 at 19:29; Status DC Ondansetron HCl (Zofran) 4 mg 1X ONCE IV Last administered on 06/09/19at 19:11; Start 06/09/19 at 19:00; Stop 06/09/19 at 19:01; Status DC Fentanyl Citrate (Fentanyl 2ml Vial) 50 mcg 1X ONCE IV Last administered on 06/09/19at 20:00; Start 06/09/19 at 20:00; Stop 06/09/19 at 20:01; Status DC Potassium Chloride/Water 100 ml @ 100 mls/hr Q1H IV Last administered on 06/10/19at 02:19; Start 06/09/19 at 20:30; Stop 06/10/19 at 00:29; Status DC Ondansetron HCl (Zofran) 4 mg PRN Q8HRS PRN IV NAUSEA/VOMITING Last administered on 06/09/19at 23:21; Start 06/09/19 at 20:00; Stop 06/10/19 at 19 :59; Status DC Fentanyl Citrate (Fentanyl 2ml Vial) 50 mcg PRN Q1HR PRN IV PAIN; Start 06/09/19 at 20:00; Stop 06/10/19 at 19:59; Status DC Sodium Chloride 1,000 ml @ 75 mls/hr [id number] IV Last administered on 06/09/19at 23:01; Start 06/09/19 at 19:48; Stop 06/10/19 at 19:47; Status DC Propofol 20 ml @ As Directed STK-MED ONCE IV ; Start 06/09/19 at 20:17; Stop 06/09/19 at 20:17; Status DC Ringer's Solution 1,000 ml @ 0 mls/hr Q0M IV ; Start 06/09/19 at 21:30 Propofol 20 ml @ As Directed STK-MED ONCE IV ; Start 06/09/19 at 21:26; Stop 06/09/19 at 21:27; Status DC Ringer's Solution 1,000 ml @ 75 mls/hr [id number] IV Last administered on 06/13/19at 21:22; Start 06/09/19 at 22:00 Fentanyl (Duragesic 75mcg/ Hr Patch) 1 patch Q3DAYS TD Last administered on 06/13/19at 00:25; Start 06/09/19 at 23:00 Barium Sulfate (Liquid E-Z Paque) 355 ml 1X ONCE PO Last administered on 06/10/19 08:31; Start 06/10/19 at 07:45; Stop 06/10/19 at 07:46; Status DC Barium Sulfate (E-Z-Hd) 340 gm 1X ONCE PO ; Start 06/10/19 at 07:45; Stop 06/10/19 at 07:46; Status DC Simethicone/ Sodium Bicarb/ Citric Ac (E-Z-Gas) 1 packet 1X ONCE PO ; Start 06/10/19 at 07:45; Stop 06/10/19 at 07:46; Status DC Potassium Chloride/Water 100 ml @ 100 mls/hr Q1H IV Last administered on 06/10/19at 15:55; Start 06/10/19 at 10:00; Stop 06/10/19 at 13:59; Status DC Magnesium Sulfate/ Dextrose 100 ml @ 100 mls/hr 1X ONCE IV Last administered on 06/10/19 09:38; Start 06/10/19 at 10:00; Stop 06/10/19 at 10:59; Status DC Amlodipine Besylate (Norvasc) 5 mg DAILY PO Last administered on 06/14/19 08:43; Start 06/10/19 at 10:00 Aripiprazole (Abilify) 5 mg DAILY PO Last administered on 06/14/19 08:43; Start 06/10/19 at 10:00 Atorvastatin Calcium (Lipitor) 40 mg HS PO Last administered on 06/13/19at 2 1:22; Start 06/10/19 at 21:00 Fentanyl (Duragesic 75mcg/ Hr Patch) 1 patch Q72H TD ; Start 06/10/19 at 09:30; Status UNV Hydroxychloroquine Sulfate (Plaquenil) 200 mg DAILY PO Last administered on 06/14/19 08:43; Start 06/10/19 at 10:00 Potassium Chloride (Klor-Con) 10 meq DAILY PO Last administered on 06/14/19 08:43; Start 06/10/19 at 10:00 Non-Formulary Medication (Cevimeline Hcl ) 30 mg TID PO Last administered on 06/14/19 08:43; Start 06/10/19 at 14:00 Pantoprazole Sodium (Protonix) 40 mg DAILYAC PO Last administered on 9/22/19at 08:43; Start 06/10/19 at 10:00 Duloxetine HCl (Cymbalta) 60 mg DAILY PO Last administered on 06/14/19at 08:43; Start 06/10/19 at 10:00 Non-Formulary Medication (Modafinil ) 200 mg DAILY PO ; Start 06/11/19 at 09:00; Stop 06/13/19 at 10:36; Status DC Potassium Chloride/Water 100 ml @ 100 mls/hr Q1H IV Last administered on 06/11/19at 15:38; Start 06/11/19 at 11:00; Stop 06/11/19 at 14:59; Status DC Magnesium Sulfate 50 ml @ 25 mls/hr Q24H IV Last administered on 06/11/19at 11:17; Start 06/11/19 at 11:00; Stop 06/11/19 at 12:59; Status DC Magnesium Sulfate 50 ml @ 25 mls/hr 1X ONCE IV ; Start 06/11/19 at 11:00; Stop 06/11/19 at 12:59; Status UNV Potassium Chloride (Klor-Con) 40 meq 1X ONCE PO ; Start 06/11/19 at 11:30; Stop 06/11/19 at 11:20; Status DC Loperamide HCl (Imodium) 2 mg PRN Q8HRS PRN PO DIARRHEA Last administered on 06/12/19at 09:48; Start 06/11/19 at 11:30 Potassium Chloride/Water 100 ml @ 100 mls/hr Q1H IV Last administered on 06/12/19at 12:32; Start 06/12/19 at 08:00; Stop 06/12/19 at 11:59; Status DC Lidocaine (Lidoderm) 1 patch DAILY TD Last administered on 06/14/19at 09:17; Start 06/13/19 at 13:00 Miscellaneous (Lidoderm Patch Removal) 1 ea QHS MC Last administered on 06/13/19at 21:22; Start 06/12/19 at 21:00 Labetalol HCl (Normodyne Iv Push) 20 mg PRN Q2HR PRN IVP HYPERTENSION Last administered on 06/13/19at 23:45; Start 06/13/19 at 00:30 Potassium Chloride (Klor-Con) 40 meq 1X ONCE PO Last administered on 06/13/19at 09:05; Start 06/13/19 at 08:00; Stop 06/13/19 at 08:01; Status DC Potassium Chloride (Klor-Con) 20 meq 1X ONCE PO Last administered on 06/13/19at 11:53; Start 06/13/19 at 11:00; Stop 06/13/19 at 11:01; Status DC Non-Formulary Medication (Modafinil ) 400 mg DAILY PO Last administered on 06/14/19at 08:43; Start 06/13/19 at 10:36 Acetaminophen (Tylenol) 650 mg PRN Q6HRS PRN PO PAIN Last administered on 06/14/19at 03:59; Start 06/14/19 at 03:45 Active Scripts Active Reported FENTANYL 75mcg/hr (Fentanyl) 1 Each Patch.td72 1 Patch TD Q72H Plaquenil (Hydroxychloroquine Sulfate) 200 Mg Tablet 200 Mg PO DAILY Modafinil 200 Mg Tablet 200 Mg PO DAILY Klor-Con 10 (Potassium Chloride) 10 Meq Tablet.er 20 Meq PO DAILY Losartan-Hctz 100-12.5 Mg Tab (Losartan/Hydrochlorothiazide) 1 Each Tablet 1 Each PO DAILY Fentanyl Citrate-Ns 600 Mcg/30 (Fentanyl Citrate-0.9 % NaCl/Pf) 600 Mcg/30 Ml [employer] Administrator.vial 600 Mcg IJ Q 72 HRS Cymbalta (Duloxetine Hcl) 60 Mg Capsule.dr 60 Mg PO DAILY Cevimeline Hcl 30 Mg Capsule 30 Mg PO TID Dexilant (Dexlansoprazole) 60 Mg Cap. 60 Mg PO DAILY Atorvastatin Calcium 40 Mg Tablet 40 Mg PO HS Amlodipine Besylate 5 Mg Tablet 5 Mg PO DAILY Abilify (Aripiprazole) 5 Mg Tablet 5 Mg PO DAILY Vitals/I & O Vital Sign - Last 24 Hours 06/13/19 06/13/19 06/13/19 06/13/19 08:56 11:15 11:53 15:30 Temp 97.6 98.2 97.6 98.2 Pulse 59 71 71 67 Resp 18 18 B/P (MAP) 170/70 179/80 (113) 179/80 158/74 (102) Pulse Ox 96 95 O2 Delivery Room Air Room Air 06/13/19 06/13/19 06/13/19 06/13/19 19:15 20:27 23:06 23:45 Temp 97.8 97.9 97.8 97.9 Pulse 73 75 75 Resp 16 16 B/P (MAP) 171/93 (119) 180/80 (113) 180/80 Pulse Ox 96 94 O2 Delivery Room Air Room Air Room Air 06/14/19 06/14/19 06/14/19 06/14/19 03:00 07:30 08:00 08:43 Temp 97.5 97.5 97.5 97.5 Pulse 62 61 61 Resp 18 18 B/P (MAP) 129/60 (83) 112/62 (79) 112/62 Pulse Ox 98 95 O2 Delivery Room Air Room Air Room Air Intake and Output 06/13/19 06/14/19 06/14/19 17:00 01:00 09:00 Intake Total 300 ml 680 ml 200 ml Output Total 975 ml 300 ml Balance -675 ml 380 ml 200 ml ALBERTO GARCIA MD Jun 14, 2019 10:18
[2019-06-14 11:56] VITALS: BP 172/72
[2019-06-14] MEDS: LABETALOL 20 MG/4 ML DISP.SYRIN. IVP PRN (12:08)
[2019-06-14 12:48] LABS: CALCIUM 9.5 mg/dL (8.5-10.1); CREATININE 0.7 mg/dL (0.6-1.0); GFR 84.2; POTASSIUM 3.4 mmol/L (3.5-5.1)
[2019-06-14] MEDS ORDERED: hydroCHLOROthiazide 12.5 MG CAPSULE PO SCH (13:00)
[2019-06-14] MEDS ORDERED: LOSARTAN POTASSIUM 50 MG TABLET. PO SCH (13:00)
[2019-06-14 14:01] VITALS: BP 148/83
[2019-06-14 14:04] VITALS: BP 148/83
--- NOTE | 2019-06-14 14:21 | PDOC3 ---
Discharge Summary Date of Admission: Jun 09, 2019 Date of Discharge: Jun 14, 2019 Follow-Up: 3-5 days Admitting Diagnosis comment: discharge dx Assessment/Plan A/P: Impacted food bolus - successfully removed. Barium swallow pending. F/u GI recs, ON BARIUM SWALLOW No definite intrinsic or extrinsic filling defect of the esophagus is seen although there is mild mass effect on the esophagus from the aortic arch. Prompt gastroesophageal emptying. Small hiatal hernia. Tertiary contractions suggesting delayed motility, presbyesophagus Reflux to the mid thoracic esophagus Hypokalemia - possibly 2/2 HCTZ, I advised her to ask her PCP about considering alternatives. Replaced 4 doses IV, will replace another 4 IV, check mag Sjogren's - cont cevilimine HTN - stable, cont meds HLP- cont statin .03/11 Regadenoson cardioisotope stress test did not show any evidence of ischemia or infarct. OA - monitor DANE on CPAP - home CPAP Narcolepsy - on modafanil, GERD s/p leticia - severe reflux Obesity - S/P sleeve gastrectromy. Has f/u HYPOKALEMIA, TOLERATED ORAL K WELL TODAY diarrhea possible RTA FEN - Liquid diet when ok with GI PPX - Ambulatory FULL CODE Dispo - CONT potassium IV replacement , MG REPLACEMENT stool culture AM SERUM ALDOSTERONE 06/13 SERUM CORTISOL AM, PM URINARY K, NA home today if k ok 29 MIN PT EXAM, CHART REVIEW d/c planning , > 50% OF TIME SPENT WITH EXAM, CHART REVIEW, PT CARE COORDINATION Vitals Vitals Vital Signs Date Time Temp Pulse Resp B/P (MAP) Pulse Ox O2 Delivery O2 Flow Rate FiO2 06/14/19 08:43 61 112/62 06/14/19 08:00 Room Air 06/14/19 07:30 97.5 18 95 97.5 Physical Exam General: Alert, Oriented X3, Cooperative, No acute distress Heart: Regular rate, No murmurs Lungs: Clear Abdomen: Normal bowel sounds, Soft, No tenderness, No hepatosplenomegaly, No masses Extremities: No clubbing, No cyanosis, No edema, Normal pulses, No tenderness/swelling Skin: No rashes, No breakdown, No significant lesion Assessment and Plan FINAL DIAGNOSIS Problems Medical Problems: (1) Food impaction of esophagus Status: Acute (2) HLD (hyperlipidemia) Status: Chronic (3) HTN (hypertension) Status: Chronic (4) Hypokalemia Status: Acute (5) Narcolepsy Status: Chronic (6) DANE (obstructive sleep apnea) Status: Chronic Brief Hospital Course Ms. Branch is a 64 old [sex] who presented with [ESOPHAGEAL OBSTRUCTION, HYPOKALEMIA ] CONDITION AT DISCHARGE: Improved Discharge Medications Current Medications Sodium Chloride 1,000 ml @ 1,000 mls/hr 1X ONCE IV Last administered on 06/09/19at 19:11; Start 06/09/19 at 18:30; Stop 06/09/19 at 19:29; Status DC Ondansetron HCl (Zofran) 4 mg 1X ONCE IV Last administered on 06/09/19at 19:11; Start 06/09/19 at 19:00; Stop 06/09/19 at 19:01; Status DC Fentanyl Citrate (Fentanyl 2ml Vial) 50 mcg 1X ONCE IV Last administered on 06/09/19at 20:00; Start 06/09/19 at 20:00; Stop 06/09/19 at 20:01; Status DC Potassium Chloride/Water 100 ml @ 100 mls/hr Q1H IV Last administered on 06/10/19at 02:19; Start 06/09/19 at 20:30; Stop 06/10/19 at 00:29; Status DC Ondansetron HCl (Zofran) 4 mg PRN Q8HRS PRN IV NAUSEA/VOMITING Last administered on 06/09/19at 23:21; Start 06/09/19 at 20:00; Stop 06/10/19 at 19:59; Status DC Fentanyl Citrate (Fentanyl 2ml Vial) 50 mcg PRN Q1HR PRN IV PAIN; Start 06/09/19 at 20:00; Stop 06/10/19 at 19:59; Status DC Sodium Chloride 1,000 ml @ 75 mls/hr [id number] IV Last administered on 06/09/19at 23:01; Start 06/09/19 at 19:48; Stop 06/10/19 at 19:47; Status DC Propofol 20 ml @ As Directed STK-MED ONCE IV ; Start 06/09/19 at 20:17; Stop 06/09/19 at 20:17; Status DC Ringer's Solution 1,000 ml @ 0 mls/hr Q0M IV ; Start 06/09/19 at 21:30 Propofol 20 ml @ As Directed STK-MED ONCE IV ; Start 06/09/19 at 21:26; Stop 06/09/19 at 21:27; Status DC Ringer's Solution 1,000 ml @ 75 mls/hr [id number] IV Last administered on 06/13/19at 21:22; Start 06/09/19 at 22:00 Fentanyl (Duragesic 75mcg/ Hr Patch) 1 patch Q3DAYS TD Last administered on 06/13/19at 00:25; Start 06/09/19 at 23:00 Barium Sulfate (Liquid E-Z Paque) 355 ml 1X ONCE PO Last administered on 06/10/19at 08:31; Start 06/10/19 at 07:45; Stop 06/10/19 at 07:46; Status DC Barium Sulfate (E-Z-Hd) 340 gm 1X ONCE PO ; Start 06/10/19 at 07:45; Stop 06/10/19 at 07:46; Status DC Simethicone/ Sodium Bicarb/ Citric Ac (E-Z-Gas) 1 packet 1X ONCE PO ; Start 06/10/19 at 07:45; Stop 06/10/19 at 07:46; Status DC Potassium Chloride/Water 100 ml @ 100 mls/hr Q1H IV Last administered on 06/10/19at 15:55; Start 06/10/19 at 10:00; Stop 06/10/19 at 13:59; Status DC Magnesium Sulfate/ Dextrose 100 ml @ 100 mls/hr 1X ONCE IV Last administered on 06/10/19at 09:38; Start 06/10/19 at 10:00; Stop 06/10/19 at 10:59; Status DC Amlodipine Besylate (Norvasc) 5 mg DAILY PO Last administered on 06/14/19 08:43; Start 06/10/19 at 10:00 Aripiprazole (Abilify) 5 mg DAILY PO Last administered on 06/14/19 08:43; Start 06/10/19 at 10:00 Atorvastatin Calcium (Lipitor) 40 mg HS PO Last administered on 06/13/19at 21:22; Start 06/10/19 at 21:00 Fentanyl (Duragesic 75mcg/ Hr Patch) 1 patch Q72H TD ; Start 06/10/19 at 09:30; Status UNV Hydroxychloroquine Sulfate (Plaquenil) 200 mg DAILY PO Last administered on 06/14/19 08:43; Start 06/10/19 at 10:00 Potassium Chloride (Klor-Con) 10 meq DAILY PO Last administered on 06/14/19 08:43; Start 06/10/19 at 10:00 Non-Formulary Medication (Cevimeline Hcl ) 30 mg TID PO Last administered on 06/14/19 14:05; Start 06/10/19 at 14:00 Pantoprazole Sodium (Protonix) 40 mg DAILYAC PO Last administered on 06/14/19 08:43; Start 06/10/19 at 10:00 Duloxetine HCl (Cymbalta) 60 mg DAILY PO Last administered on 06/14/19 08:43; Start 06/10/19 at 10:00 Non-Formulary Medication (Modafinil ) 200 mg DAILY PO ; Start 06/11/19 at 09:00; Stop 06/13/19 at 10:36; Status DC Potassium Chloride/Water 100 ml @ 100 mls/hr Q1H IV Last administered on 15:38; Start 06/11/19 at 11:00; Stop 06/11/19 at 14:59; Status DC Magnesium Sulfate 50 ml @ 25 mls/hr Q24H IV Last administered on 06/11/19 11:17; Start 06/11/19 at 11:00; Stop 06/11/19 at 12:59; Status DC Magnesium Sulfate 50 ml @ 25 mls/hr 1X ONCE IV ; Start 06/11/19 at 11:00; Stop 06/11/19 at 12:59; Status UNV Potassium Chloride (Klor-Con) 40 meq 1X ONCE PO ; Start 06/11/19 at 11:30; Stop 06/11/19 at 11:20; Status DC Loperamide HCl (Imodium) 2 mg PRN Q8HRS PRN PO DIARRHEA Last administered on 06/12/19 09:48; Start 06/11/19 at 11:30 Potassium Chloride/Water 100 ml @ 100 mls/hr Q1H IV Last administered on 06/12/19at 12:32; Start 06/12/19 at 08:00; Stop 06/12/19 at 11:59; Status DC Lidocaine (Lidoderm) 1 patch DAILY TD Last administered on 06/14/19 09:17; Start 06/13/19 at 13:00 Miscellaneous (Lidoderm Patch Removal) 1 ea QHS MC Last administered on 06/13/19 21:22; Start 06/12/19 at 21:00 Labetalol HCl (Normodyne Iv Push) 20 mg PRN Q2HR PRN IVP HYPERTENSION Last administered on 06/14/19 12:08; Start 06/13/19 at 00:30 Potassium Chloride (Klor-Con) 40 meq 1X ONCE PO Last administered on 06/13/19 09:05; Start 06/13/19 at 08:00; Stop 06/13/19 at 08:01; Status DC Potassium Chloride (Klor-Con) 20 meq 1X ONCE PO Last administered on 06/13/19 11:53; Start 06/13/19 at 11:00; Stop 06/13/19 at 11:01; Status DC Non-Formulary Medication (Modafinil ) 400 mg DAILY PO Last administered on 06/14/19 08:43; Start 06/13/19 at 10:36 Acetaminophen (Tylenol) 650 mg PRN Q6HRS PRN PO PAIN Last administered on 06/14/19 03:59; Start 06/14/19 at 03:45 Losartan Potassium (Cozaar) 100 mg DAILY PO Last administered on 06/14/19 14: 05; Start 06/14/19 at 13:00 Hydrochlorothiazide (Microzide) 12.5 mg DAILY PO Last administered on 06/14/19 14:05; Start 06/14/19 at 13:00 Active Scripts Active Reported FENTANYL 75mcg/hr (Fentanyl) 1 Each Patch.td72 1 Patch TD Q72H Plaquenil (Hydroxychloroquine Sulfate) 200 Mg Tablet 200 Mg PO DAILY Modafinil 200 Mg Tablet 200 Mg PO DAILY Klor-Con 10 (Potassium Chloride) 10 Meq Tablet.er 20 Meq PO DAILY Losartan-Hctz 100-12.5 Mg Tab (Losartan/Hydrochlorothiazide) 1 Each Tablet 1 Each PO DAILY Fentanyl Citrate-Ns 600 Mcg/30 (Fentanyl Citrate-0.9 % NaCl/Pf) 600 Mcg/30 Ml Moto Mix Operator.vial 600 Mcg IJ Q 72 HRS Cymbalta (Duloxetine Hcl) 60 Mg Capsule.dr 60 Mg PO DAILY Cevimeline Hcl 30 Mg Capsule 30 Mg PO TID Dexilant (Dexlansoprazole) 60 Mg Cap.mp 60 Mg PO DAILY Atorvastatin Calcium 40 Mg Tablet 40 Mg PO HS Amlodipine Besylate 5 Mg Tablet 5 Mg PO DAILY Abilify (Aripiprazole) 5 Mg Tablet 5 Mg PO DAILY Vital Signs Vital Signs Date Time Temp Pulse Resp B/P (MAP) Pulse Ox O2 Delivery O2 Flow Rate FiO2 06/14/19 14:05 70 148/83 06/14/19 11:56 97.7 20 95 Room Air 97.7 Labs Laboratory Tests Test 06/12/19 15:13 06/13/19 04:35 06/14/19 12:00 Cortisol PM Sample 13.0 ug/dL (3.1-16.7) Sodium Level 144 mmol/L (136-145) 145 mmol/L (136-145) Potassium Level 3.0 mmol/L (3.5-5.1) 3.4 mmol/L (3.5-5.1) Chloride Level 107 mmol/L (98-107) 104 mmol/L (98-107) Carbon Dioxide Level 29 mmol/L (21-32) 32 mmol/L (21-32) Anion Gap 8 (6-14) 9 (6-14) Blood Urea Nitrogen 11 mg/dL (7-20) 15 mg/dL (7-20) Creatinine 0.7 mg/dL (0.6-1.0) 0.7 mg/dL (0.6-1.0) Estimated GFR (Cockcroft-Gault) 84.2 84.2 Glucose Level 117 mg/dL (70-99) 89 mg/dL (70-99) Calcium Level 9.0 mg/dL (8.5-10.1) 9.5 mg/dL (8.5-10.1) Laboratory Tests Test 06/14/19 12:00 Sodium Level 145 mmol/L (136-145) Potassium Level 3.4 mmol/L (3.5-5.1) Chloride Level 104 mmol/L (98-107) Carbon Dioxide Level 32 mmol/L (21-32) Anion Gap 9 (6-14) Blood Urea Nitrogen 15 mg/dL (7-20) Creatinine 0.7 mg/dL (0.6-1.0) Estimated GFR (Cockcroft-Gault) 84.2 Glucose Level 89 mg/dL (70-99) Calcium Level 9.5 mg/dL (8.5-10.1) Allergies Allergies Coded Allergies Type Severity Reaction Last Updated Verified No Known Drug Allergies 12/11/18 No Disposition/Orders: D/C to Home Patient Instructions D/C PLANNING 29 MIN ALBERTO GARCIA MD Jun 14, 2019 14:21
[2019-06-14] MEDS ORDERED: ACET325T9 PO (14:23)
[2019-06-14] MEDS ORDERED: POTA10TA12 PO (14:24)
[2019-06-14] MEDS ORDERED: POTA20TA82 PO (14:27)
--- NOTE | 2019-06-14 14:27 | DISCH ---
DISCHARGE INSTRUCTIONS Condition on Discharge Condition on Discharge: Stable Activity After Discharge Activity Instructions for Disc: Activity as tolerated Lifting Instructions after Dis: No heavy lifting, No pulling or pushing Driving Instructions after Dis: Do not drive today Weight Bearing Status after Di: As tolerated Diet after Discharge Diet after Discharge: Cardiac Liquid Texture: Thin Liquid Checks after Discharge Checks after discharge: Check blood press - daily Contacting the DR. after DC Call your doctor for: If your condition worsens ALBERTO GARCIA MD Jun 14, 2019 14:27
--- NOTE | 2019-06-14 18:18 | NUR ---
Discharge Note: SALBADOR HORTA [address] Discharge instructions and discharge home medications reviewed with patient and a copy given. All questions have been answered and understanding verbalized. The following instructions and handouts were given: Take potassium tablets as instructed, prescription called to [facility] [place] at 1818. Handout on hypokalemia, discussed importance of treatment. Follow up with PCP in a week. Watch out for worsening/recurrence of symptoms--nausea, vomiting, diarrhea. Discontinued lines and drains: peripheral IV intact, patient tolerated removal, no complications noted. Patient discharged to home via wheelchair accompanied by family members at 1645.
[2019-06-15 00:08] LABS: CALCIUM UR 8.2 mg/dL (Not Estab.)
== END 2019-06-14 16:41 | disposition home or self-care (01) | DRG 394 ==
LOC: ER 17:16 → 6 SOUTH 19:36
PROVIDERS: ADMIT Internal Medicine; ATTEND Internal Medicine
PROC: 0DJ08ZZ Inspection of Upper Intestinal Tract, Via Natural or Artificial Opening Endoscopic (ICD-10-PCS; principal; 2019-06-09 20:43)
DX: T18.128A Food in esophagus causing other injury, initial encounter (principal); E87.0 Hyperosmolality and hypernatremia; E87.6 Hypokalemia; M79.7 Fibromyalgia; M19.90 Unspecified osteoarthritis, unspecified site; X58.XXXA Exposure to other specified factors, initial encounter; I10 Essential (primary) hypertension; E78.5 Hyperlipidemia, unspecified; G47.33 Obstructive sleep apnea (adult) (pediatric); K21.9 Gastro-esophageal reflux disease without esophagitis; G47.419 Narcolepsy without cataplexy; E66.9 Obesity, unspecified; M35.00 Sjogren syndrome, unspecified; K22.8 Other specified diseases of esophagus; E83.42 Hypomagnesemia; K44.9 Diaphragmatic hernia without obstruction or gangrene; T50.2X5A Adverse effect of carbonic-anhydrase inhibitors, benzothiadiazides and other diuretics, initial encounter; K22.2 Esophageal obstruction; E83.50 Unspecified disorder of calcium metabolism; Z90.49 Acquired absence of other specified parts of digestive tract; Y93.89 Activity, other specified; Y92.89 Other specified places as the place of occurrence of the external cause; Y99.8 Other external cause status; Z82.49 Family history of ischemic heart disease and other diseases of the circulatory system; Z68.34 Body mass index [BMI] 34.0-34.9, adult; Z90.710 Acquired absence of both cervix and uterus; Z83.71 Family history of colonic polyps; Z83.3 Family history of diabetes mellitus; Z80.0 Family history of malignant neoplasm of digestive organs; Z98.84 Bariatric surgery status; Z98.51 Tubal ligation status
CPT/HCPCS: 36415; 43247; 71045; 73030; 74220; 80048; 80053; 81001; 82088; 82310; 82340; 82533; 83690; 83735; 85025; 87045; 87086; 93005; 96361; 96374; 96375; C1757; J2405; J2704; J3010; J3475; J3480; J3490; J7030; J7120; 97110; 99285-25; G0378

== ENCOUNTER → 2019-07-03 | Outpatient (CLI) | payer BC ==
[2019-06-14 14:04] VITALS: BP 148/83
[~2019-07-03] MED LIST changes: +ACET325T9 PO; +CONTRAST GIVEN. MC PRN; +FENT1PAT19 TD; +HYDR200T71 PO; +IOHEXOL 180 MG/ML 10 ML VIAL. INT ART ONE; +LIDOCAINE 1% Multi-Dose 20 ML VIAL. ID ONE; +POTA20TA82 PO
--- NOTE | 2019-07-03 15:12 | KCIC ---
CT arthrogram of the right shoulder Indication: Pain and decreased range of motion for 2 months. Exposure: One or more of the following individualized dose reduction techniques were utilized for this examination: 1. Automated exposure control 2. Adjustment of the mA and/or kV according to patient size 3. Use of iterative reconstruction technique. Technique: Standard imaging without intravenous contrast. Findings: Acromioclavicular joint is degenerative. Small undersurface osteophytes. Full-thickness rotator cuff tear of the mid through posterior supraspinatus tendon and most or all of the infraspinatus tendon. Tear measures about 3.5 cm AP diameter. Fibers are retracted about 3.5 cm. Contrast accumulates in the subdeltoid bursa. No obvious high-grade subscapularis tendon tear. No acute articular cartilage defect at the glenohumeral joint. Small subchondral cysts at the inferior glenoid are likely degenerative. There is a linear fissure traversing the anteroinferior glenoid articular cartilage extending to the subchondral bone surface seen on the axial and coronal images. No clear-cut labral detachment or separation, but difficult to exclude a component of labral tear in this area. Biceps tendon not well seen but that could be due to the limits of CT technique. No acute fracture. No aggressive bone destruction. Visualized soft tissues demonstrate no significant abnormality. Visualized right lung appears clear. IMPRESSION: 1. Full-thickness rotator cuff tear involving the mid to posterior supraspinatus tendon and infraspinatus tendon with retraction. 2. Linear defect or fissure through the anteroinferior glenohumeral joint articular cartilage. Difficult to exclude a component of anteroinferior labral tear. Electronically signed by: Andrei Jackson MD (07/03/2019 3:09 PM) [email or web address]
--- NOTE | 2019-07-03 15:16 | KCIC ---
Right shoulder contrast injection using fluoroscopic guidance prior to CT History: Pain and decreased range of motion for about 2 months. Technique: The procedure and associated risks, including infection, bleeding or allergic reaction, were explained to the patient. Informed written consent was obtained. Time-out procedure was performed. The anterior shoulder was prepped and draped in usual sterile manner. Local anesthetic was obtained with lidocaine. A 22 gauge needle was advanced without difficulty into the glenohumeral joint. After negative aspiration, a mixture of 15 cc Omnipaque 180 contrast and 5 cc 1 percent lidocaine mixture was injected without difficulty, to a total volume of 12 cc. Needle was removed. Patient tolerated the procedure well without immediate complication and left in stable condition. A single spot image was obtained. Fluoroscopy time: ?17 seconds Electronically signed by: Andrei Jackson MD (07/03/2019 3:13 PM) [email or web address]
== END | disposition home or self-care (01) ==
LOC: KCIC 13:14
PROVIDERS: ATTEND Orthopaedic Surgery
DX: M75.41 Impingement syndrome of right shoulder (principal); M75.101 Unspecified rotator cuff tear or rupture of right shoulder, not specified as traumatic
CPT/HCPCS: 23350; 73201; 77002; Q9965; 73040

== ENCOUNTER → 2019-08-04 | Outpatient (CLI) | payer BC ==
[~2019-08-04] MED LIST changes: -CONTRAST GIVEN. MC PRN; -IOHEXOL 180 MG/ML 10 ML VIAL. INT ART ONE; +LEVO50TA5 PO; -LIDOCAINE 1% Multi-Dose 20 ML VIAL. ID ONE; +RANI150T2 PO
[2019-08-04 15:08] LABS: BASO % 1 % (0-3); EOS # 0.1 x10^3/uL (0.0-0.7); EOS % 2 % (0-3); HEMATOCRIT 36.6 % (36.0-47.0); HEMOGLOBIN 12.7 g/dL (12.0-15.5); LYMPH % 28 % (24-48); MEAN CORPUSCULAR HEMOGLOBIN 34 pg (25-35); MEAN CORPUSCULAR HGB CONC 35 g/dL (31-37); MEAN CORPUSCULAR VOLUME 98 fL (79-100); MONO # 0.7 x10^3/uL (0.0-1.1); MONO % 10 % (0-9); NEUT # 4.4 x10^3/uL (1.8-7.7); NEUT % 60 % (31-73); PLATELET COUNT 236 x10^3/uL (140-400); RED BLOOD COUNT 3.75 x10^6/uL (3.50-5.40); RED CELL DISTRIBUTION WIDTH 12.3 % (11.5-14.5); WHITE BLOOD COUNT 7.4 x10^3/uL (4.0-11.0)
[2019-08-04 15:33] LABS: ALBUMIN 3.2 g/dL (3.4-5.0); ALBUMIN/GLOBULIN RATIO 0.8 (1.0-1.7); CALCIUM 9.1 mg/dL (8.5-10.1); CREATININE 0.7 mg/dL (0.6-1.0); GFR 84.2; POTASSIUM 3.5 mmol/L (3.5-5.1); TOTAL BILIRUBIN 0.2 mg/dL (0.2-1.0); TOTAL PROTEIN 7.1 g/dL (6.4-8.2)
== END | disposition home or self-care (01) ==
LOC: SURGPAT 14:43
PROVIDERS: ATTEND Orthopaedic Surgery
DX: Z01.818 Encounter for other preprocedural examination (principal); M75.101 Unspecified rotator cuff tear or rupture of right shoulder, not specified as traumatic; M75.41 Impingement syndrome of right shoulder
CPT/HCPCS: 36415; 80053; 82306; 85025

== ENCOUNTER 2019-08-11 09:47 | Observation (INO) | payer BC ==
[~2019-08-11] VITALS: Ht 162.6 cm; Wt 85.3 kg
[~2019-08-11 09:47] MED LIST changes: +BUPIVACAINE-EPI 0.25%-1:200000 MPF 30 ML VIAL. INJ ONE; +HYDROmorphone 2 MG/ML VIAL IV PRN; +IV RINGERS,LACTATED 1000ML 1,000 ML IV SCH; +MORPHINE SULFATE 2 MG/ML VIAL. IV PRN; +ONDANSETRON PF 4 MG/2 ML VIAL. IV PRN; +PROCHLORPERAZINE 10 MG/2 ML VIAL. IV PRN
[2019-08-11] MEDS ORDERED: PROPOFOL 20 ML IV ONE (09:57)
[2019-08-11] MEDS ORDERED: FAMOTIDINE 20 MG/2 ML VIAL ONE (09:58)
[2019-08-11] MEDS ORDERED: ONDANSETRON PF 4 MG/2 ML VIAL. ONE (09:58)
[2019-08-11] MEDS ORDERED: DEXAMETHASONE SOD PHOS 20 MG/5 ML VIAL. ONE (09:59)
[2019-08-11] MEDS ORDERED: ROCURONIUM 50 MG/5 ML VIAL. ONE (09:59)
[2019-08-11] MEDS ORDERED: LIDOCAINE 2% PF 5 ML VIAL. ONE (09:59)
[2019-08-11] MEDS ORDERED: ceFAZolin 2GM PREMIX 2 GM/50 ML BAG IV ONE (10:00)
[2019-08-11] MEDS ORDERED: EPINEPHrine VIAL 30 MG/30 ML VIAL ONE (10:17)
[2019-08-11] MEDS ORDERED: BUPIVACAINE MPF 0.5% 30 ML VIAL. ONE ×2 (10:18)
--- NOTE | 2019-08-11 10:42 | PDOC1 ---
History and Physical Date of Admission Date of Admission DATE: 08/11/19 TIME: 10:36 Identification/Chief Complaint Chief Complaint Right shoulder pain and weakness after a fall in April History of Present Illness History of Present Illness Patient is a 64-year-old female who presents with right shoulder pain following a fall at [employer] on the same date as her first XR (05/06/19) . She reports land ing on her back and shoulder and was subsequently seen in ED for this. She has tried home exercises without much help. Currently, she describes pain holding objects, reaching for her seat belt, or holding a gallon of milk. CT arthrogram shows a high-grade rotator cuff tear with retraction. Past Medical History Cardiovascular: HTN, Hyperlipidemia Pulmonary: Other GI: GERD Heme/Onc: No pertinent hx Rheumatologic: Other Infectious disease: No pertinent hx Renal/: No pertinent hx Endocrine: No pertinent hx Past Surgical History Past Surgical History: Other Family History Family History: High Cholestrol, Hypertension Social History ALCOHOL: none Drugs: None Current Medications Current Medications Current Medications Ondansetron HCl (Zofran) 4 mg PRN Q6HRS PRN IV NAUSEA/VOMITING; Start 08/11/19 at 07:00; Stop 08/12/19 at 06:59 Fentanyl Citrate (Fentanyl 2ml Vial) 25 mcg PRN Q5MIN PRN IV MILD PAIN 1-3; Start 08/11/19 at 07:00; Stop 08/12/19 at 06:59 Fentanyl Citrate (Fentanyl 2ml Vial) 50 mcg PRN Q5MIN PRN IV MODERATE TO SEVERE PAIN; Start 08/11/19 at 07:00; Stop 08/12/19 at 06:59 Morphine Sulfate (Morphine Sulfate) 1 mg PRN Q10MIN PRN IV SEVERE PAIN 7-10; Start 08/11/19 at 07:00; Stop 08/12/19 at 06:59 Ringer's Solution 1,000 ml @ 30 mls/hr Q24H IV Last administered on 08/11/19at 07:00; Start 08/11/19 at 07:00; Stop 08/11/19 at 18:59 Hydromorphone HCl (Dilaudid) 0.5 mg PRN Q10MIN PRN IV SEV PAIN, Second choice; Start 08/11/19 at 07:00; Stop 08/12/19 at 06:59 Prochlorperazine Edisylate (Compazine) 5 mg PACU PRN PRN IV NAUSEA, MRX1; Start 08/11/19 at 07:00; Stop 08/12/19 at 06:59 Bupivacaine HCl/ Epinephrine Bitart (Sensorcaine-Epi 0.25%-1:[id number] Mpf) 30 ml 1X ONCE INJ ; Start 08/11/19 at 06:00; Stop 08/11/19 at 06:01; Status DC Cefazolin Sodium/ Dextrose 50 ml @ 100 mls/hr 1X PREOP PRN IV PRIOR TO PROCEDURE; Start 08/11/19 at 06:00; Stop 08/11/19 at 18:00 Propofol 20 ml @ As Directed STK-MED ONCE IV ; Start 08/11/19 at 09:57; Stop 08/11/19 at 09:58; Status DC Famotidine (Pepcid Vial) 20 mg STK-MED ONCE .ROUTE ; Start 08/11/19 at 09:58; Stop 08/11/19 at 09:58; Status DC Ondansetron HCl (Zofran) 4 mg STK-MED ONCE .ROUTE ; Start 08/11/19 at 09:58; Stop 08/11/19 at 09:59; Status DC Lidocaine HCl (Lidocaine Pf 2% Vial) 5 ml STK-MED ONCE .ROUTE ; Start 08/11/19 at 09:59; Stop 08/11/19 at 09:59; Status DC Dexamethasone Sodium Phosphate (Decadron) 20 mg STK-MED ONCE .ROUTE ; Start 08/11/19 at 09:59; Stop 08/11/19 at 09:59; Status DC Rocuronium Vanderbilt (Zemuron) 50 mg STK-MED ONCE .ROUTE ; Start 08/11/19 at 09:59; Stop 08/11/19 at 10:00; Status DC Epinephrine HCl (Adrenalin) 30 mg STK-MED ONCE .ROUTE ; Start 08/11/19 at 10 :17; Stop 08/11/19 at 10:18; Status DC Bupivacaine HCl (Sensorcaine Mpf 0.5%) 30 ml STK-MED ONCE .ROUTE ; Start 08/11/19 at 10:18; Stop 08/11/19 at 10:18; Status DC Bupivacaine HCl (Sensorcaine Mpf 0.5%) 30 ml STK-MED ONCE .ROUTE ; Start 08/11/19 at 10:18; Stop 08/11/19 at 10:18; Status DC Active Scripts Active Potassium Chloride 20 Meq Tablet.er 20 Meq PO BIDAC 14 Days Reported Levothyroxine Sodium 50 Mcg Tablet 1 Tab PO DAILY Ranitidine Hcl 150 Mg Tablet 1 Tab PO BID FENTANYL 75mcg/hr (Fentanyl) 1 Each Patch.td72 1 Patch TD Q72H Plaquenil (Hydroxychloroquine Sulfate) 200 Mg Tablet 200 Mg PO BID Modafinil 200 Mg Tablet 400 Mg PO DAILY Losartan-Hctz 100-12.5 Mg Tab (Losartan/Hydrochlorothiazide) 1 Each Tablet 1 Each PO DAILY Cymbalta (Duloxetine Hcl) 60 Mg Capsule.dr 60 Mg PO BID Cevimeline Hcl 30 Mg Capsule 30 Mg PO TID Dexilant (Dexlansoprazole) 60 Mg Cap. 60 Mg PO DAILY Atorvastatin Calcium 40 Mg Tablet 40 Mg PO HS Amlodipine Besylate 5 Mg Tablet 5 Mg PO DAILY Abilify (Aripiprazole) 5 Mg Tablet 10 Mg PO DAILY Allergies Allergies: Coded Allergies: No Known Drug Allergies (Unverified , 12/11/18) ROS Review of System OPHTHALMOLOGY Blurred vision none. Double vision denies. Change in vision none. ENT Hearing loss none. Change in voice denies. Rhinorrhea none. CARDIOLOGY Palpitations none. Shortness of breath denies. Chest pain denies. CONSTITUTIONAL Fever denies. Chills denies. Weight gain denies. Weakness none. weight loss denies. Fatigue admits. GASTROENTEROLOGY Diarrhea denies. Vomiting none. Dysphagia none. Difficulty swallowing admits. UROLOGY Voiding normally yes. Hematuria none. MUSCULOSKELETAL Chronic back or neck pain denies. Swelling of the feet, hands, ankles and /or legs denies. Joint pain admits. Tingling/numbness no. DERMATOLOGY Rash denies. Lumps none. NEUROLOGY Dizziness/lightheadedness denies. Double vision, temporary blindness denies. Tingling/numbness none. PSYCHOLOGY Change in mood or personality denies. Memory loss none. ENDOCRINOLOGY Obesity denies. Fatigue none. Weight loss none. HEMATOLOGY/LYMPH Hepatitis denies. Enlarged lymph nodes denies. Physical Exam General: Alert, Oriented X3 HEENT: Atraumatic Lungs: Normal air movement Heart: RRR Abdomen: Soft Extremities: Other (Gross alignment of the RIGHT shoulder is normal. Tenderness to palpation of the subacromial bursa, greater tuberosity, and biceps. Minimal tenderness of the AC joint. Strength is 4/5 for the supraspinatus and 3/5 for the infraspinatus. No evidence of instability. Range of motion is 150/130/60/L4. Positive Neer's, Mccain, and Fady's impingement tests. Skin, pulses, and sensation normal) Skin: No rashes, No breakdown Neuro: Normal speech, Sensation intact Vitals Vitals Vital Signs Date Time Temp Pulse Resp B/P (MAP) Pulse Ox O2 Delivery O2 Flow Rate FiO2 08/11/19 10:26 Room Air 08/11/19 10:20 98.7 67 16 200/81 95 98.7 Images Images [facility] [address] [place], [place] [id number] IMAGING REPORT Signed PATIENT: SALBADOR HORTA ACCOUNT: [id number] : 1955 LOCATION: ER AGE: 63 SEX: F EXAM STATUS: DEP ER ORD. PHYSICIAN: OSEI WARE APRN REASON: pain PROCEDURE: SHOULDER 2+V RIGHT EXAM: 3 views right shoulder DATE: 05/06/2019 9:28 PM INDICATION: Right shoulder pain COMPARISON: No Prior FINDINGS/ IMPRESSION: 1. No evidence of acute fracture or dislocation. 2. Humeral head is not high riding. 3. Mild AC joint degenerative change. Electronically signed by: Gunner Godwin MD (05/07/2019 8:07 AM) [facility] DICTATED and SIGNED BY: GUNNER GODWIN MD DATE: 05/07/19 0807 [facility] [id number] [place] [id number] IMAGING REPORT Signed PATIENT: SALBADOR HORTA ACCOUNT: [id number] : 1955 LOCATION: [facility] AGE: 64 SEX: F EXAM STATUS: REG CLI ORD. PHYSICIAN: JAJA OBRIEN MD REASON: IMPINGEMENT SYNDROME RIGHT SHOULDER PROCEDURE: CT UPPER EXTREMTY W/CONTRST RT CT arthrogram of the right shoulder Indication: Pain and decreased range of motion for 2 months. Exposure: One or more of the following individualized dose reduction techniques were utilized for this examination: 1. Automated exposure control 2. Adjustment of the mA and/or kV according to patient size 3. Use of iterative reconstruction technique. Technique: Standard imaging without intravenous contrast. Findings: Acromioclavicular joint is degenerative. Small undersurface osteophytes. Full-thickness rotator cuff tear of the mid through posterior supraspinatus tendon and most or all of the infraspinatus tendon. Tear measures about 3.5 cm AP diameter. Fibers are retracted about 3.5 cm. Contrast accumulates in the subdeltoid bursa. No obvious high-grade subscapularis tendon tear. No acute articular cartilage defect at the glenohumeral joint. Small subchondral cysts at the inferior glenoid are likely degenerative. There is a linear fissure traversing the anteroinferior glenoid articular cartilage extending to the subchondral bone surface seen on the axial and coronal images. No clear-cut labral detachment or separation, but difficult to exclude a component of labral tear in this area. Biceps tendon not well seen but that could be due to the limits of CT technique. No acute fracture. No aggressive bone destruction. Visualized soft tissues demonstrate no significant abnormality. Visualized right lung appears clear. IMPRESSION: 1. Full-thickness rotator cuff tear involving the mid to posterior supraspinatus tendon and infraspinatus tendon with retraction. 2. Linear defect or fissure through the anteroinferior glenohumeral joint articular cartilage. Difficult to exclude a component of anteroinferior labral tear. Electronically signed by: Andrei Jackson MD (07/03/2019 3:09 PM) [id number] VTE Prophylaxis Ordered VTE Prophylaxis Devices: Yes VTE Pharmacological Prophylaxi: No Assessment/Plan Assessment/Plan The patient has a rotator cuff tear possibly acute. We reviewed the options for treatment including primary repair surgery, superior capsule reconstruction, and reverse shoulder arthroplasty. I explained that her tear is substantial and is close to being irreparable. If this were the case, she would require reverse shoulder arthroplasty, which she may still eventually require. However, I believe cuff repair or SCR will be possible and I recommended this. We discussed the potential risks of infection, neurovascular injury, bleeding, need for revision surgery, or other potential surgical or anesthetic complications. We also discussed postoperative treatment and expectations. She notes previous difficulty with pain management and is currently on a Fentanyl patch. We will plan for her to stay overnight. She understands this, all of her questions were answered, and she desires to proceed with surgery. She is here today for elective surgery. JAJA OBRIEN MD Aug 11, 2019 10:42
[2019-08-11] MEDS ORDERED: MIDAZOLAM HCL/PF 2 MG/2 ML VIAL. ONE (10:43)
[2019-08-11] MEDS ORDERED: fentaNYL PF VIAL 100 MCG/2 ML VIAL ONE ×3 (10:43→15:06)
[2019-08-11] MEDS ORDERED: PHENYLEPHRINE in 0.9% NACL PF 1 MG/10 ML SYRINGE. IV ONE (11:58)
[2019-08-11] MEDS ORDERED: ePHEDrine PF IN SALINE 50 MG/10 ML SYRINGE. IV ONE (11:58)
[2019-08-11] MEDS ORDERED: ceFAZolin SODIUM 1 GM VIAL ONE (12:45)
[2019-08-11] MEDS ORDERED: 0.9 % SODIUM CHLORIDE 20 ML VIAL. IJ ONE (12:45)
[2019-08-11] MEDS ORDERED: NEOSTIGMINE METHYLSULFATE 5 MG/5 ML SYRINGE. ONE (13:56)
[2019-08-11] MEDS ORDERED: GLYCOPYRROLATE 1 MG/5 ML VIAL. ONE (13:56)
[2019-08-11] MEDS ORDERED: DESFLURANE > 120 MINUTES IH ONE (13:56)
[2019-08-11] MEDS: fentaNYL PF VIAL 100 MCG/2 ML VIAL IV PRN ×4 (14:26→15:10)
--- NOTE | 2019-08-11 14:40 | PDOC4 ---
Operative Note Operative Note Date of Procedure: August 11, 2019 Pre-Op Diagnosis: 1. Unspecified rotator cuff tear of right shoulder, not specified as traumatic M75.101 2. Impingement syndrome of right shoulder M75.41 Post-Op Diagnosis: 1. Complete rotator cuff tear of right shoulder, not specified as traumatic, M75.121 2. Impingement syndrome of right shoulder M75.41 3. Bicipital tendinitis, right shoulder M75.21 Procedure: 1. Repair of ruptured musculotendinous cuff (rotator cuff) open, chronic CPT 04318 2. Arthroscopy, shoulder, surgical decompression of subacromial space, with partial acromioplasty CPT 67751 3. Open tenodesis of long tendon of biceps CPT 03163 Surgeon: Jaja Wu MD Operations Lead: MAIKEL Rodriguez Anesthesia: General EBL: 50 mL Specimens Obtained: none Complications: none Drains: none Findings: Chronic appearance of rotator cuff tear approximately 3.5 cm anterior to posterior, with some retraction but reducible after anterior release. Impingement syndrome with prominent anterior acromion. High-grade partial tear of the biceps tendon, with proximal tendinitis, necessitated biceps tenodesis. Implants: Arthrex swivel lock anchors 4.75 mm x5 , 5.5 mm, 6.25 mm, (cuff) 7 mm (biceps). Indications for Procedure: The patient is a 64-year-old woman with right shoulder pain, rotator cuff tear by CT arthrogram, clinically has impingement syndrome, and has weakness and pain in the shoulder. She had a recent injury with a fall on May 06, although Im not sure that all of the tear occurred on that date. We tried nonoperative treatment without success. She and I discussed the risks benefits and alternatives of arthroscopy with acromioplasty and decompression, and rotator cuff repair, hopefully repairing an acute tear based on her recent injury, but possibly repairing a chronic tear, and with the retraction noted on CT arthrogram I also discussed superior capsule reconstruction with allograft. If it is a chronic unrepairable tear she will lik damaris need additional surgeries in the future. We discussed potential risks of surgery such as stiffness, re-tear, continued pain, infection, neurovascular injury, or other potential surgical or anesthetic complications. All of her questions about surgery were answered and she desired to proceed. A written consent was obtained. Procedure in Detail: The patient was identified in the preoperative holding area. The correct right shoulder was marked by me. The patient was taken to the operating room where general anesthesia was used. The patient was positioned in the beachchair position with the bony prominences well-padded and the eyes protected. Preoperative antibiotics were given intravenously. A timeout procedure was performed. Under sterile technique 25 mLs of bupivacaine with epinephrine was injected into the subacromial space and glenohumeral joint. The limb was then thoroughly prepared with surgical ChloraPrep solution circumferentially. Sterile waterproof arthroscopy shoulder drapes were applied, along with an impervious stockinette over the arm, and a Spider arm sahu. Posterior, posterolateral, lateral, and anterior arthroscopy portals were used. The glenohumeral joint showed relatively normal articular surfaces. There was a high-grade partial biceps tear, and I completed this with the shaver and then with a basket forceps. There was degenerative labral tearing and shaving debridement was performed. The subscapularis tendon is intact and stable to probing. There is a high-grade rotator cuff tear. I did some of the footprint preparation for cuff repair or superior capsule reconstruction at this time using a ring curette, and the motorized bur. The subacromial space was entered. The anterior acromion was prominent. There is a high-grade rotator cuff tear. I used a grasper to help mobilize the cuff and prove that it could be reduced to the footprint. The ArthroCare device was used for hemostasis and to remove the undersurface periosteum. A 6.0 mm oval bur was used for the acromioplasty. A 3 stage acromioplasty was performed, with the bur first laterally, removing anterior acromion, using the distal clavicle as a reference. The bur was then placed in the posterior portal, and a cutting block technique was used for smoothing of the lateral edge of the acromion which was prominent, and tapering the anterior acromion into a Bigliani type I configuration. Final smoothing of the acromion was performed with the bur again in the lateral portal, and direct arthroscopic visualization. The previously very tight subacromial space was now nicely decompressed. This completes CPT 09526, subacromial decompression and acromioplasty. No further impingement appears to be occurring. Copious irrigation was used. The arthroscopic instruments were removed. Antibiotics were redosed. Outer gloves were changed. The skin was prepared a second time with ChloraPrep solution. An anterior lateral deltoid raphae splinting incision was used. Care was made not to extend more than 4 cm distally so as to avoid axillary nerve injury. Self-retaining retractors were placed. My inventory assistant used an [employer] retractor in addition to the self-retaining retractors. The biceps was localized, and dissected free from the intertubercular sulcus. The degenerative and was trimmed. #2 FiberWire suture was used to whipstitch the tendon using a running locking suture pattern. A 7.5 mm reamer was used to create a socket in the inferior aspect of the intertubercular sulcus. A 7 mm Arthrex biceps tenodesis anchor was used. The free end of the tendon was ret racted to the eyelet, and then the anchor deployed in the socket. Excellent security was obtained. The inner and outer #2 FiberWire sutures were then tied together for additional security of the biceps tenodesis. A secure tenodesis was obtained. Next the cuff tear was performed. The cuff tear was not as mobile as I had thought arthroscopically. I did do an anterior release to help decrease any tension on the repair, converting this into an anterior L-shaped tear. It had been a large crescent tear, likely a 2 tendon tear including the supraspinatus and infraspinatus. With mobilization and release the cuff was able to be reduced to the footprint without difficulty. A traction suture was placed with #2 FiberWire suture, and my inventory assistant Munson manipulated and placed traction on the cuff when I placed the fiber tapes and FiberWire sutures using the Scorpion device. I did a 3 x 3 anchor repair with 3 medial swivel lock anchors and originally 3 lateral swivel lock anchors. An additional lateral 4.75 mm malika anchor was required laterally due to poor bone at the anterior anchor of the lateral row. All 3 medial swivel locks are 4.75 mm, and I placed each of the mattress sutures medially for additional security. The tear has a large horizontal delamination, which I debrided originally with the shaver, and then attempted to secure both layers of the tear in all portions of the repair. The lateral row swivel locks are 4.75 mm, 5.5 mm, and 6.25 mm. Additional dogear sutures were used laterally. A secure and tension-free repair was obtained. The shoulder was taken through a range of motion, and the repair security confirmed. Copious saline irrigation was used. I closed the fascia of the deltoid with #0 Vicryl suture in a [id number] fashion. My inventory assistant Arpit then completed the subcutaneous closure with 2-0 Vicryl. She repaired the skin with #3-0 Prolene. She injected additional 25 mLs of bupivacaine with epinephrine. She placed Xeroform and bulky sterile dressings. She then applied a [employer] UltraSling. There were no apparent competitions. Needle and sponge counts were correct. JAJA WU MD Aug 11, 2019 14:40
[2019-08-11] MEDS ORDERED: DEXTROSE 50% 25 GM / 50ML DISP.SYRIN. IV PRN (14:45)
[2019-08-11] MEDS ORDERED: oxyCODONE/APAP 5/325 1 TAB TABLET PO PRN (14:45)
[2019-08-11] MEDS ORDERED: MORPHINE SULFATE 4 MG/ML VIAL. IV PRN (14:45)
[2019-08-11] MEDS ORDERED: ONDANSETRON PF 4 MG/2 ML VIAL. IV PRN ×2 (14:45→17:30)
[2019-08-11] MEDS ORDERED: POLYETHYLENE GLYCOL 3350 17 GM PACKET. PO PRN (14:45)
[2019-08-11] MEDS ORDERED: fentaNYL 75MCG/HR PATCH 1 PATCH PATCH.TD72 TD SCH (14:45)
[2019-08-11] MEDS ORDERED: fentaNYL PF VIAL 100 MCG/2 ML VIAL IV PRN ×3 (14:45→17:30)
[2019-08-11 16:30] VITALS: BP 151/87
[2019-08-11] MEDS: POTASSIUM CHLORIDE 20 MEQ TABLET.ER. PO SCH (16:42)
[2019-08-11] MEDS: MORPHINE SULFATE 2 MG/ML VIAL. IV PRN ×2 (16:44→20:03)
[2019-08-11 17:00] VITALS: BP 154/87
--- NOTE | 2019-08-11 17:12 | NUR ---
received from recovery post shoulder surgery. denies numbness in right hand- r kier boiler slightly less than left. r arm in deanne salinas. she had good pulses, sensation and motion in fingers bilaterally. she voided upon arrival to floor--400cc yellow urine. repositioned deanne ventura sltahir and returns to bed. she is rating her pain an "8"; medicated with morphine. daughter at bedside. she will be staying with her daughter when she goes home. she lives alone. originally fell in april on a wet floor. she brought several items from home.
[2019-08-11] MEDS ORDERED: PROCHLORPERAZINE 10 MG/2 ML VIAL. IV PRN (17:30)
[2019-08-11] MEDS ORDERED: HYDROmorphone 2 MG/ML VIAL IV PRN (17:30)
[2019-08-11] MEDS ORDERED: IV RINGERS,LACTATED 1000ML 1,000 ML IV SCH (17:30)
[2019-08-11] MEDS ORDERED: LIDOCAINE 1% PF 2 ML VIAL. ID PRN (17:30)
[2019-08-11] MEDS ORDERED: MORPHINE SULFATE 2 MG/ML VIAL. IV PRN (17:30)
[2019-08-11 18:00] VITALS: BP 163/78
[2019-08-11] MEDS: oxyCODONE IR 5 MG TABLET PO PRN (18:58)
[2019-08-11] MEDS: IV 1/2 NORMAL SALINE 1,000 ML IV SCH (20:23)
[2019-08-11] MEDS ORDERED: ATORVASTATIN CALCIUM 40 MG TABLET. PO SCH (21:00)
[2019-08-11] MEDS ORDERED: CEVIMELINE HCL 30 MG PO SCH (21:00)
[2019-08-11] MEDS: DULoxetine HCL 30 MG CAPSULE.DR PO SCH (21:17)
[2019-08-11] MEDS: CEVIMELINE PO SCH (21:17)
[2019-08-11] MEDS: FAMOTIDINE 20 MG TABLET. PO SCH (21:17)
[2019-08-11] MEDS: HYDROXYCHLOROQUINE 200 MG TABLET PO SCH (21:18)
[2019-08-11 23:20] VITALS: BP 150/82
[2019-08-12] MEDS: MORPHINE SULFATE 2 MG/ML VIAL. IV PRN ×3 (01:17→05:42)
--- NOTE | 2019-08-12 03:36 | NUR ---
Assisted to toilet, voiding QS. Patient weeping. "my pain is an 11." Morphine given IVP. Falls asleep quickly. BP machine has difficulty marking her BP. This RN stopped trying after 2 failed attempts and patient was c/o pain.
[2019-08-12] MEDS: IV 1/2 NORMAL SALINE 1,000 ML IV SCH (04:00)
[2019-08-12] MEDS ORDERED: MAGNESIUM HYDROXIDE 2,400 MG/30 ML ORAL.SUSP. PO PRN (06:00)
[2019-08-12 06:32] VITALS: BP 155/84
[2019-08-12] MEDS ORDERED: LEVOTHYROXINE 50 MCG TABLET PO SCH (07:00)
[2019-08-12] MEDS: oxyCODONE IR 5 MG TABLET PO PRN ×3 (07:19→15:35)
[2019-08-12] MEDS: DULoxetine HCL 30 MG CAPSULE.DR PO SCH (08:09)
[2019-08-12] MEDS: FAMOTIDINE 20 MG TABLET. PO SCH (08:09)
[2019-08-12] MEDS: POTASSIUM CHLORIDE 20 MEQ TABLET.ER. PO SCH (08:09)
[2019-08-12] MEDS: HYDROXYCHLOROQUINE 200 MG TABLET PO SCH (08:11)
[2019-08-12] MEDS: CEVIMELINE PO SCH ×2 (08:12→14:31)
[2019-08-12] MEDS ORDERED: DEXLANSOPRAZOLE 60 MG PO SCH (09:00)
[2019-08-12] MEDS ORDERED: MULTIVITAMIN with MINERAL TABLET. PO SCH (09:00)
[2019-08-12] MEDS ORDERED: SENNOSIDES/DOCUSATE 8.6/50MG TABLET. PO SCH (09:00)
[2019-08-12] MEDS ORDERED: hydroCHLOROthiazide 12.5 MG CAPSULE PO SCH (09:00)
[2019-08-12] MEDS ORDERED: amLODIPine BESYLATE 5 MG TABLET PO SCH (09:00)
[2019-08-12] MEDS ORDERED: ARIPiprazole 5 MG TABLET PO SCH (09:00)
[2019-08-12] MEDS ORDERED: LOSARTAN POTASSIUM 50 MG TABLET. PO SCH (09:00)
[2019-08-12] MEDS ORDERED: MODAFINIL 400 MG PO SCH (09:00)
--- NOTE | 2019-08-12 13:00 | NUR ---
Ambulates to bathroom with steady gait. Needs lots encouragement to sit up in chair and to be more active. Pt always wants to lye in bed. Sat up for lunch. Cont. monitor.
[2019-08-12] MEDS ORDERED: OXYC5TAB4 PO (14:29)
[2019-08-12] MEDS ORDERED: BISACODYL 10 MG SUPP.RECT. PR PRN (16:00)
[2019-08-12 16:25] VITALS: BP 139/76
--- NOTE | 2019-08-12 16:30 | NUR ---
Home meds returned (2 bottles).
--- NOTE | 2019-08-12 16:50 | NUR ---
Discharge instructions and prescription given. Answered questions and concerns. Both pt and daughter verbalized understanding. Pt discharge, staying at daughter's home.
[2019-08-14] MEDS ORDERED: fentaNYL 75MCG/HR PATCH 1 PATCH PATCH.TD72 TD SCH (09:00)
== END 2019-08-12 16:50 | disposition home or self-care (01) ==
LOC: SURG 09:47 → 4 SOUTHEST 15:04
PROVIDERS: ADMIT Orthopaedic Surgery; ATTEND Orthopaedic Surgery
DX: M75.101 Unspecified rotator cuff tear or rupture of right shoulder, not specified as traumatic (principal); M75.41 Impingement syndrome of right shoulder; I10 Essential (primary) hypertension; E78.5 Hyperlipidemia, unspecified; K21.9 Gastro-esophageal reflux disease without esophagitis; W19.XXXD Unspecified fall, subsequent encounter
CPT/HCPCS: 23412; 23430; 29823; 29826; 96365; 96366; 96375; 96376; 97116; 97162; 97166; 97530; 97535; A7015; C1713; C1782; G0378; G0379; J0171; J0690; J0696; J1100; J2001; J2250; J2270; J2370; J2405; J2704; J2710; J3010; J3490; J7120

== ENCOUNTER → 2019-11-04 | Outpatient (CLI) | payer BC ==
[~2019-11-04] MED LIST changes: -BUPIVACAINE-EPI 0.25%-1:200000 MPF 30 ML VIAL. INJ ONE; -HYDROmorphone 2 MG/ML VIAL IV PRN; -IV RINGERS,LACTATED 1000ML 1,000 ML IV SCH; -MORPHINE SULFATE 2 MG/ML VIAL. IV PRN; -ONDANSETRON PF 4 MG/2 ML VIAL. IV PRN; +OXYC5TAB4 PO; +POTA20TA4 PO; -POTA20TA82 PO; -PROCHLORPERAZINE 10 MG/2 ML VIAL. IV PRN
--- NOTE | 2019-11-04 14:16 | CARD ---
MR#: [id number] Date of Study: 11/04/2019 Ordering Physician: ALEXANDRA ISLAS, Referring Physician: ALEXANDRA ISLAS, Tech: Kristal Elam MODESTA APPROVED REPORT EXAM: Two-dimensional and M-mode echocardiogram with Doppler and color Doppler. Other Information Quality : Technically LimitedHR: 76bpm Rhythm : NSRTechnically limited study due to body habitus. INDICATION Murmur 2D DIMENSIONS RVDd2.9 (2.9-3.5cm)Left Atrium(2D)2.9 (1.6-4.0cm) IVSd1.5 (0.7-1.1cm)Aortic Root(2D)2.8 (2.0-3.7cm) LVDd3.8 (3.9-5.9cm)LVOT Diameter1.8 (1.8-2.4cm) PWd1.0 (0.7-1.1cm)IVSs1.5 (0.8-1.2cm) LVDs2.7 (2.5-4.0cm)FS (%) 28.8 % PWs1.6 (0.8-1.2cm)SV34.0 ml LVEF(%)56.2 (>50%) Aortic Valve AoV Peak Aneesh.146.7cm/sAoV VTI29.8cm AO Peak GR.8.6mmHgLVOT Peak Aneesh.120.3cm/s LVOT VTI 26.19cmAO Mean GR.5mmHg TRICE (VMAX)1.77ff7BUA (VTI)2.12cm2 Mitral Valve MV E Cwdeljke11.8cm/sMV DECEL [id number] MV A Abddeowe46.1cm/sMV [id number] E/A Ratio1.0MVA (PHT)2.84cm2 TDI E/Lateral E'6.2E/Medial E'9.0 Pulmonary Valve PV Peak Pvxwmiuc326.2cm/sPV Peak Grad.5mmHg Pulmonary Vein S1 Rsdmpsvz50.5cm/sD2 Rkarceqz76.9cm/s LEFT VENTRICLE The left ventricle is normal size. Proximal septal thickening is noted. The left ventricular systolic function is normal and the ejection fraction is within normal range. The Ejection Fraction is 60-65% . There is normal LV segmental wall motion. Transmitral Doppler flow pattern is Grade I-abnormal rela xation pattern. RIGHT VENTRICLE The right ventricle is normal size. There is normal right ventricular wall thickness. The right ventr icular systolic function is normal. ATRIA The left atrium size is normal. The right atrium size is normal. The interatrial septum is intact wit h no evidence for an atrial septal defect or patent foramen ovale as noted on 2-D or Doppler imaging. AORTIC VALVE The aortic valve is normal in structure and function. The aortic valve is trileaflet. Doppler and Col or Flow revealed no significant aortic regurgitation. There is no significant aortic valvular stenosi s. There is no aortic valvular vegetation. MITRAL VALVE The mitral valve is normal in structure and function. There is no evidence of mitral valve prolapse. There is no mitral valve stenosis. Doppler and Color Flow revealed no mitral valve regurgitation note d. TRICUSPID VALVE The tricuspid valve is normal in structure and function. Doppler and Color Flow revealed no tricuspid valve regurgitation noted. There is no tricuspid valve prolapse or vegetation. There is no tricuspid valve stenosis. PULMONIC VALVE The pulmonic valve is not well visualized. GREAT VESSELS The aortic root is normal in size. The ascending aorta is normal in size. The IVC is normal in size a nd collapses >50% with inspiration. PERICARDIAL EFFUSION There is no evidence of significant pericardial effusion. Critical Notification Critical Value: No <Conclusion> The left ventricular systolic function is normal and the ejection fraction is within normal range. Th e Ejection Fraction is 60-65%. There is normal LV segmental wall motion. Technically difficult study Signed by : Nav Tamayo, Electronically Approved : 11/04/2019 14:16:10
== END | disposition home or self-care (01) ==
LOC: ECHO 13:25
PROVIDERS: ATTEND Internal Medicine Cardiovascular Disease
DX: R01.1 Cardiac murmur, unspecified (principal)
CPT/HCPCS: 93306

== ENCOUNTER 2020-01-09 10:54 | Emergency (ER) | payer BC ==
[~2020-01-09] VITALS: Ht 162.6 cm; Wt 90.9 kg
[2020-01-09] MEDS ORDERED: IV NORMAL SALINE 1000ML BAG 1,000 ML IV SCH (11:24)
[2020-01-09] MEDS ORDERED: fentaNYL PF VIAL 100 MCG/2 ML VIAL IVP ONE (11:30)
[2020-01-09] MEDS ORDERED: ONDANSETRON PF 4 MG/2 ML VIAL. IVP ONE (11:30)
--- NOTE | 2020-01-09 11:34 | PHYS DOC ---
Past Medical History Past Medical History: Fibromyalgia, Hypertension, Other Additional Past Medical Histor: sjogrens,osteoarthritis,CHRONIC PAIN Past Surgical History: Cholecystectomy, Hysterectomy, Other Additional Past Surgical Histo: Juan fundoplication,gastric BYPASS,back/NECK surg,BILAT SHOULDER,KNEE Smoking Status: Never Smoker Alcohol Use: None Drug Use: None General Adult EDM: Chief Complaint: FOREIGN BODY HPI: HPI: Patient is a 64 year old female with history of Sjogren's disease, osteoarthritis, chronic pain, multiple food bolus in esophagus who presents with complaining of meat stuck in her throat. Patient stated 3 days ago a piece of meat stuck in her throat and since then she was not able to eat or drink. Patient complaining of pain in substernal area like she had previous pain with food bolus. Because of her Sjogren's disease patient does not make saliva. Patient denies fever and chills, shortness of breath, cough and congestion, diarrhea and urinary symptoms. Patient called her GI specialist Dr. Massey who recommended come to ER for evaluation. Review of Systems: Review of Systems: Constitutional: Denies fever or chills. [] Eyes: Denies change in visual acuity. [] HENT: Denies nasal congestion or sore throat. [] Respiratory: Denies cough or shortness of breath. [] Cardiovascular: Denies chest pain or edema. [] GI: Denies abdominal pain, bloody stools or diarrhea, reports nausea and vomiting. [] : Denies dysuria. [] Musculoskeletal: Denies back pain or joint pain. [] Integument: Denies rash. [] Neurologic: Denies headache, focal weakness or sensory changes. [] Endocrine: Denies polyuria or polydipsia. [] Lymphatic: Denies swollen glands. [] Psychiatric: Denies depression or anxiety. [] Heart Score: Risk Factors: Risk Factors: DM, Current or recent (<one month) smoker, HTN, HLP, family history of CAD, obesity. Risk Scores: Score 0 - 3: 2.5% MACE over next 6 weeks - Discharge Home Score 4 - 6: 20.3% MACE over next 6 weeks - Admit for Clinical Observation Score 7 - 10: 72.7% MACE over next 6 weeks - Early Invasive Strategies Allergies: Allergies: Allergies Coded Allergies Type Severity Reaction Last Updated Verified No Known Drug Allergies 12/11/18 No Physical Exam: PE: Constitutional: Well developed, well nourished, mild distress, non-toxic appearance. [] HENT: Normocephalic, atraumatic, dry oral mucosa. Eyes: PERRLA, EOMI, conjunctiva normal, no discharge. [] Neck: Normal range of motion, no tenderness, supple, no stridor. [] Cardiovascular:Heart rate regular rhythm, no murmur [] Lungs & Thorax: Bilateral breath sounds clear to auscultation [] Abdomen: Bowel sounds normal, soft, no tenderness, no masses, no pulsatile masses. [] Skin: Warm, dry, no erythema, no rash. [] Back: No tenderness, no CVA tenderness. [] Extremities: No tenderness, no cyanosis, no clubbing, ROM intact, no edema. [] Neurologic: Alert and oriented X 3, no focal deficits noted. [] Psychologic: Affect normal, judgement normal, mood normal. [] Current Patient Data: Vital Signs: Vital Signs Date Time Temp Pulse Resp B/P (MAP) Pulse Ox O2 Delivery O2 Flow Rate FiO2 01/09/20 11:03 98.2 94 17 150/79 (102) 94 Room Air 98.2 EKG: EKG: [] Radiology/Procedures: Radiology/Procedures: [] Course & Med Decision Making: Course & Med Decision Making Pertinent Labs and Imaging studies reviewed. (See chart for details) Evaluation of patient in ER showed 64-year-old female patient with history of Sjogren's syndrome and not making saliva also frequent esophageal food impaction with complaining of unable to eat her drink for the last 3 days after a piece of meat stuck in her esophageal area. She had unremarkable physical exam except for dry oral mucosa and treated with IV fluids. Labs showed hypokalemia and treated with IV potassium. Dr. Haney called at 1124 and stated patient is scheduled to have endoscopy at 1300. Plan to send patient to endoscopy lab for foreign body removal of esophagus. Tsering Disclaimer: Tsering Disclaimer: This electronic medical record was generated, in whole or in part, using a voice recognition dictation system. Departure Departure Impression: Primary Impression: Food impaction of esophagus Qualified Codes: T18.128A - Food in esophagus causing other injury, initial encounter Additional Impression: Hypokalemia Disposition: 01 HOME, SELF-CARE (To endoscopy lab for esophageal foreign body removal) Referrals: NAOMY LE (PCP) RUTH HANEY MD Patient Instructions: Swallowed Foreign Body, Adult Additional Instructions: Follow-up with your GI specialist order after endoscopy PRASANNA BRADLEY MD Jan 09, 2020 11:34
[2020-01-09 11:48] LABS: BASO % 1 % (0-3); EOS # 0.2 x10^3/uL (0.0-0.7); EOS % 3 % (0-3); HEMATOCRIT 45.2 % (36.0-47.0); HEMOGLOBIN 15.6 g/dL (12.0-15.5); LYMPH # 1.8 x10^3/uL (1.0-4.8); LYMPH % 27 % (24-48); MEAN CORPUSCULAR HEMOGLOBIN 32 pg (25-35); MEAN CORPUSCULAR HGB CONC 35 g/dL (31-37); MEAN CORPUSCULAR VOLUME 93 fL (79-100); MONO # 0.8 x10^3/uL (0.0-1.1); MONO % 12 % (0-9); NEUT # 3.9 x10^3/uL (1.8-7.7); NEUT % 59 % (31-73); PLATELET COUNT 268 x10^3/uL (140-400); RED BLOOD COUNT 4.85 x10^6/uL (3.50-5.40); RED CELL DISTRIBUTION WIDTH 14.3 % (11.5-14.5); WHITE BLOOD COUNT 6.6 x10^3/uL (4.0-11.0)
[2020-01-09 11:54] LABS: CALCIUM 9.2 mg/dL (8.5-10.1); CREATININE 0.8 mg/dL (0.6-1.0); GFR 72.2; POTASSIUM 3.2 mmol/L (3.5-5.1)
[2020-01-09] MEDS ORDERED: POTASSIUM CHLORIDE 10MEQ 100 ML IV ONE (12:15)
[2020-01-09] MEDS ORDERED: IV RINGERS,LACTATED 1000ML 1,000 ML IV SCH (12:36)
[2020-01-09] MEDS ORDERED: PROPOFOL 40 ML IV ONE ×2 (13:44→14:28)
[2020-01-09] MEDS ORDERED: LIDOCAINE 2% PF 5 ML VIAL. ONE (13:44)
[2020-01-09] MEDS ORDERED: PROPOFOL 20 ML IV ONE (14:14)
--- NOTE | 2020-01-09 14:35 | CONS ---
DATE OF CONSULTATION: 01/09/2020 GASTROINTESTINAL CONSULTATION REASON FOR CONSULTATION: Recurrent meat impaction. HISTORY OF PRESENT ILLNESS: The patient is a 64-year-old female with past medical history significant for hypertension, hyperlipidemia, gastroesophageal reflux disease, status post Juan fundoplication, hypothyroidism as well as rotator cuff repair, osteoarthrosis, sleep apnea, seen with meat impaction which has been present now for approximately 48 hours, has not passed on its own. She is here for disimpaction. No chest pain is encountered. She is having trouble handling oral secretions with continued discomfort, request a EGD with possible dilatation and foreign body removal. PAST MEDICAL HISTORY: Esophageal stricture, status post Juan fundoplication, hypertension, hyperlipidemia, COPD, history of rotator cuff repair. ALLERGIES: None. MEDICATIONS: Include amlodipine, Abilify, atorvastatin, Dexilant, Cymbalta, fentanyl, hydroxychloroquine, levothyroxine, losartan, modafinil, oxycodone, potassium, ____. SOCIAL HISTORY: She does not drink or smoke. FAMILY HISTORY: Noncontributory. REVIEW OF SYSTEMS: Per records. PHYSICAL EXAMINATION: GENERAL: Reveals a well-nourished, well-developed female who is alert, cooperative, in no acute distress. VITAL SIGNS: Temperature is 98.2, pulse 74, respiratory rate 18, blood pressure 184/87. LUNGS: Clear. CARDIOVASCULAR: Reveals an S1, S2 without S3, S4 or appreciable murmur. ABDOMEN: Reveals a soft abdomen, normal bowel sounds, without appreciable hepatosplenomegaly. EXTREMITIES: Reveals no cyanosis, clubbing or edema. IMPRESSION: Esophageal meat impaction with dysphagia, most likely secondary to recurrent stricture. Disimpaction, foreign body removal and possible dilatation recommended. Risks and benefits were discussed. The patient is willing to proceed at this time with EGD. RUTH MENDOZA MD DR: NANNETTE/rusty JOB#: [id number] / [id number]
[2020-01-09 15:22] VITALS: BP 159/93
== END 2020-01-09 13:01 | disposition home or self-care (01) ==
LOC: ER 10:54
DX: T18.128A Food in esophagus causing other injury, initial encounter (principal); E87.6 Hypokalemia; G89.29 Other chronic pain; I10 Essential (primary) hypertension; Z90.49 Acquired absence of other specified parts of digestive tract; Z90.710 Acquired absence of both cervix and uterus; Z95.1 Presence of aortocoronary bypass graft; X58.XXXA Exposure to other specified factors, initial encounter; Y93.89 Activity, other specified; Y92.89 Other specified places as the place of occurrence of the external cause; Y99.8 Other external cause status
CPT/HCPCS: 36415; 43247; 43450; 80048; 85025; 96365; 96375; 99285; C1757; J2405; J2704; J3480; J3490; J7030; J7120

== ENCOUNTER → 2020-02-12 | Day surgery (SDC) | payer BC ==
[~2020-02-12] MED LIST changes: +IV RINGERS,LACTATED 1000ML 1,000 ML IV SCH; +LIDOCAINE 2% PF 5 ML VIAL. ONE; +PROPOFOL 10 MG/ML (20ML) VIAL. IV ONE
--- NOTE | 2020-02-12 09:46 | HP ---
ADMIT DATE: 02/12/2020 REFERRING PHYSICIAN: Dr. Jackson Bah. REASON: Recurrent dysphagia. HISTORY OF PRESENT ILLNESS: A 64-year-old female with past medical history significant for Juan fundoplication, hypertension, hyperlipidemia, COPD, history of rotator cuff repair, recent meat impaction requiring dislodgement is here for interval dilatation. She has had some difficulties with her swallowing due to her Sjogren syndrome and has increased liquid intake, which has helped significantly. There has been no change in weight, no bleeding. She is otherwise without additional complaints. PAST MEDICAL HISTORY: Esophageal stricture, status post Juan, hypertension, hyperlipidemia, COPD, history of rotator cuff repair. MEDICATIONS: Include amlodipine, Abilify, atorvastatin, Dexilant, Cymbalta, hydroxychloroquine, levothyroxine, losartan, modafinil and potassium chloride. FAMILY HISTORY: Noncontributory. SOCIAL HISTORY: She does not drink or smoke. REVIEW OF SYSTEMS: Per records. PHYSICAL EXAMINATION: GENERAL: Reveals a well-nourished, well-developed female. VITAL SIGNS: Temperature is 98.6, pulse 70, respirations 20. LUNGS: Clear. CARDIOVASCULAR: Reveals an S1, S2 without S3, S4 or appreciable murmur. ABDOMEN: Reveals a soft abdomen, normal bowel sounds, without appreciable hepatosplenomegaly. EXTREMITIES: Reveals no cyanosis, clubbing or edema. IMPRESSION: Recurrent dysphagia with recent meat impaction. Recommend dilatation. Risks and benefits of procedure including risk of hemorrhage and perforation for operation have been discussed. The patient is willing to proceed at this time. RUTH MENDOZA MD DR: NANNETTE/rusty JOB#: [id number] / [id number]
[2020-02-12 10:08] VITALS: BP 178/87
== END | disposition home or self-care (01) ==
LOC: ENDOS 08:12
PROVIDERS: ATTEND Internal Medicine Gastroenterology
DX: R13.10 Dysphagia, unspecified (principal); K22.2 Esophageal obstruction; K21.9 Gastro-esophageal reflux disease without esophagitis; G47.33 Obstructive sleep apnea (adult) (pediatric); E78.5 Hyperlipidemia, unspecified; J44.9 Chronic obstructive pulmonary disease, unspecified; F32.9 Major depressive disorder, single episode, unspecified; E03.9 Hypothyroidism, unspecified; Z79.899 Other long term (current) drug therapy
CPT/HCPCS: 43235; 43450; J2704; J3490

== ENCOUNTER → 2020-04-21 | Outpatient (CLI) | payer BC ==
[2020-02-12 10:08] VITALS: BP 178/87
[~2020-04-21] MED LIST changes: -IV RINGERS,LACTATED 1000ML 1,000 ML IV SCH; -LIDOCAINE 2% PF 5 ML VIAL. ONE; -PROPOFOL 10 MG/ML (20ML) VIAL. IV ONE
--- NOTE | 2020-04-21 12:12 | RAD ---
EXAM: Nuclear gastric emptying scan. HISTORY: Pain. COMPARISON: None. TECHNIQUE: Serial static images were obtained over the stomach following oral administration of 2 mCi of 99m-Tc sulfur colloid in an egg based meal. FINDINGS: The stomach empties into the small bowel without evidence of reflux in the area of the esophagus. The estimated time for half emptying of gastric contents, i.e. 'gastric emptying time' is 34 minutes (normal is 66 +/- 22 minutes). There is 24 percent retained tracer activity within the stomach at one hour, 14 percent tracer activity within the stomach at 2 hours and 5 percent tracer activity within the stomach at 3 hours. IMPRESSION: Rapid gastric emptying. Electronically signed by: Lita Snider MD (04/21/2020 12:08 PM) [id number]
== END | disposition home or self-care (01) ==
LOC: NM 08:14
PROVIDERS: ATTEND Internal Medicine Gastroenterology
DX: K21.9 Gastro-esophageal reflux disease without esophagitis (principal); R11.0 Nausea
CPT/HCPCS: 78264; A9541

== ENCOUNTER 2020-06-21 13:30 | Emergency (ER) | payer MEDICARE, BC ==
[~2020-06-21] VITALS: Ht 160 cm; Wt 100.0 kg
[2020-06-21] MEDS ORDERED: ONDANSETRON PF 4 MG/2 ML VIAL. IVP ONE (14:15)
[2020-06-21] MEDS ORDERED: GLUCAGON,HUMAN RECOMBINANT 1 MG/ML VIAL. IV ONE (14:15)
--- NOTE | 2020-06-21 14:16 | PHYS DOC ---
Past Medical History Past Medical History: Fibromyalgia, Hypertension, Other Additional Past Medical Histor: sjogrens,osteoarthritis,CHRONIC PAIN Past Surgical History: Cholecystectomy, Hysterectomy, Other Additional Past Surgical Histo: Juan fundoplication,gastric BYPASS,back/NECK surg,BILAT SHOULDER,KNEE Smoking Status: Never Smoker Alcohol Use: None Drug Use: None General Adult EDM: Chief Complaint: OTHER COMPLAINTS HPI: HPI: Patient is a 65 year old Female who presents with this morning 8 scrambled eggs with sausage and now she feels like something is stuck in her throat. She states she is unable to any water down as it comes right back up. She states that as long as she is laying there she is comfortable pain sloan. She does have nausea. Patient has a history of an esophageal stretch. She states it feels exactly like last time she had a food bolus. She rates her discomfort at 8 out of 10. Patient has a history of esophageal stretching, hypertension, fibromyalgia, Sjjogrens, gastric bypass, Juan fundoplication, cholecystectomy, arthritis, hysterectomy. Review of Systems: Review of Systems: Constitutional: Denies fever or chills. [] Eyes: Denies change in visual acuity. [] HENT: Denies nasal congestion or sore throat. Throat discomfort due to food bolus. [] Respiratory: Denies cough or shortness of breath. [] Cardiovascular: Denies chest pain or edema. [] GI: Denies abdominal pain. + nausea, +vomiting fluids that are swallowed due to food bolus. Denies bloody stools or diarrhea. Food bolus. [] : Denies dysuria. [] Musculoskeletal: Denies back pain or joint pain. [] Integument: Denies rash. [] Neurologic: Denies headache, focal weakness or sensory changes. [] Endocrine: Denies polyuria or polydipsia. [] Lymphatic: Denies swollen glands. [] Psychiatric: Denies depression or anxiety. [] Heart Score: Risk Factors: Risk Factors: DM, Current or recent (<one month) smoker, HTN, HLP, family history of CAD, obesity. Risk Scores: Score 0 - 3: 2.5% MACE over next 6 weeks - Discharge Home Score 4 - 6: 20.3% MACE over next 6 weeks - Admit for Clinical Observation Score 7 - 10: 72.7% MACE over next 6 weeks - Early Invasive Strategies Allergies: Allergies: Allergies Coded Allergies Type Severity Reaction Last Updated Verified No Known Drug Allergies 12/11/18 No Physical Exam: PE: Constitutional: Well developed, well nourished, no acute distress, non-toxic appearance. [] HENT: Normocephalic, atraumatic, bilateral external ears normal, oropharynx moist, no oral exudates, nose normal. [] Eyes: PERRLA, EOMI, conjunctiva normal, no discharge. [] Neck: Normal range of motion, no tenderness, supple, no stridor. [] Cardiovascular:Heart rate regular rhythm, no murmur [] Lungs & Thorax: Bilateral breath sounds clear to auscultation [] Abdomen: Bowel sounds normal, soft, no tenderness, no masses, no pulsatile masses. Vomits fluid back up due to food bolus. [] Skin: Warm, dry, no erythema, no rash. [] Back: No tenderness, no CVA tenderness. [] Extremities: No tenderness, no cyanosis, no clubbing, ROM intact, no edema. [] Neurologic: Alert and oriented X 3, normal motor function, normal sensory function, no focal deficits noted. [] Psychologic: Affect normal, judgement normal, mood normal. [] Current Patient Data: Vital Signs: Vital Signs Date Time Temp Pulse Resp B/P (MAP) Pulse Ox O2 Delivery O2 Flow Rate FiO2 06/21/20 13:36 98.3 67 18 163/82 (109) 97 Room Air 98.3 EKG: EKG: [] Radiology/Procedures: Radiology/Procedures: [] Impression: [facility] [address] [place], [place] [id number] IMAGING REPORT Signed PATIENT: SALBADOR HORTA ACCOUNT: [id number] : 1955 LOCATION: ER AGE: 65 SEX: F EXAM STATUS: REG ER ORD. PHYSICIAN: JESUS STOVALL APRN REASON: chest/ throat discomfort, food bolus? PROCEDURE: PORTABLE CHEST 1V EXAM: PORTABLE CHEST 1V INDICATION: Reason: chest/ throat discomfort, food bolus? / Spl. Instructions: / History: . TECHNIQUE: Single view COMPARISON: 06/09/2019 chest x-ray FINDINGS: The heart size is normal. The great vessels appear unremarkable. There is no hilar or mediastinal mass. The lungs are clear. There is no pleural effusion or pneumothorax. Postoperative changes from ACDF in the cervical spine are redemonstrated along with spinal stimulator electrodes in the lower thoracic spine. No radiopaque foreign body identified in the included field of view. IMPRESSION: No active cardiopulmonary disease. No radiopaque foreign body identified in the included field of view. If the fluid bolus is suspected stomach in the esophagus, an esophagogram could be pursued in further evaluation. Electronically signed by: Pablo Ayala MD (06/21/2020 3:11 PM) [id number] DICTATED and SIGNED BY: PABLO AYALA MD DATE: 06/21/20 151 Course & Med Decision Making: Course & Med Decision Making Pertinent Labs and Imaging studies reviewed. (See chart for details) Alert and oriented x1. Patient denies vomiting, headache, dizziness, chest pain, shortness of air, abdominal pain, dysuria, back pain, fever, cough. Ambulatory with a steady gait. Abdomen is soft and nontender. Patient speaks in full complete sentences. Patient states she called [facility]'s office and they told her to come to the emergency room. She will be given glucagon in the ED to see if this helps for calling GI. Patient who was given glucagon in the ED and she states that she still feels the food bolus. She states that food bolus felt slightly better. We tried a small sip of fluid and it came back up. I will call GI. I have spoken to Katarina nurse practitioner for GI and she states she will come down and see the patient. Patient being taken to GI Lab. [] Tsering Disclaimer: Tsering Disclaimer: This electronic medical record was generated, in whole or in part, using a voice recognition dictation system. Departure Departure Impression: Primary Impression: Food impaction of esophagus Qualified Codes: T18.128A - Food in esophagus causing other injury, initial encounter Disposition: HOME, SELF-CARE (GI LAB) Condition: STABLE Referrals: NAOMY LE (PCP) Justicifation of Admission Dx: Justifications for Admission: Justification of Admission Dx: N/A (GI LAB) JESUS STOVALL APRN Jun 21, 2020 14:16
[2020-06-21 14:31] LABS: BASO # 0.1 x10^3/uL (0.0-0.2); BASO % 1 % (0-3); EOS # 0.2 x10^3/uL (0.0-0.7); EOS % 3 % (0-3); HEMATOCRIT 38.9 % (36.0-47.0); HEMOGLOBIN 13.5 g/dL (12.0-15.5); LYMPH # 1.9 x10^3/uL (1.0-4.8); LYMPH % 30 % (24-48); MEAN CORPUSCULAR HEMOGLOBIN 33 pg (25-35); MEAN CORPUSCULAR HGB CONC 35 g/dL (31-37); MEAN CORPUSCULAR VOLUME 95 fL (79-100); MONO # 0.6 x10^3/uL (0.0-1.1); MONO % 9 % (0-9); NEUT # 3.7 x10^3/uL (1.8-7.7); NEUT % 57 % (31-73); PLATELET COUNT 230 x10^3/uL (140-400); RED BLOOD COUNT 4.11 x10^6/uL (3.50-5.40); RED CELL DISTRIBUTION WIDTH 13.1 % (11.5-14.5); WHITE BLOOD COUNT 6.5 x10^3/uL (4.0-11.0)
[2020-06-21 14:39] LABS: PROTHROMBIN TIME PATIENT 12.6 SEC (11.7-14.0)
[2020-06-21 14:47] LABS: CALCIUM 8.7 mg/dL (8.5-10.1); CREATININE 0.6 mg/dL (0.6-1.0); GFR 100.3
[2020-06-21 14:54] LABS: ALBUMIN 3.5 g/dL (3.4-5.0); TOTAL BILIRUBIN 0.5 mg/dL (0.2-1.0)
--- NOTE | 2020-06-21 15:14 | RAD ---
EXAM: PORTABLE CHEST 1V INDICATION: Reason: chest/ throat discomfort, food bolus? / Spl. Instructions: / History: . TECHNIQUE: Single view COMPARISON: 06/09/2019 chest x-ray FINDINGS: The heart size is normal. The great vessels appear unremarkable. There is no hilar or mediastinal mass. The lungs are clear. There is no pleural effusion or pneumothorax. Postoperative changes from ACDF in the cervical spine are redemonstrated along with spinal stimulator electrodes in the lower thoracic spine. No radiopaque foreign body identified in the included field of view. IMPRESSION: No active cardiopulmonary disease. No radiopaque foreign body identified in the included field of view. If the fluid bolus is suspected stomach in the esophagus, an esophagogram could be pursued in further evaluation. Electronically signed by: Ara Ayala MD (06/21/2020 3:11 PM) [id number]
--- NOTE | 2020-06-21 15:58 | PDOC2 ---
GI CONSULT Date of Service: DATE: 06/21/20 TIME: 15:34 Reason For Consult: called by ER provider - food bolus HPI: HPI: 65 y/o female in ER - called by Jeannie Harris APRN in ER. Sausage and scrambled eggs stuck in midchest since yesterday morning. Couldn't eat or drink at home, couldn't take medications. No relief w/ glucagon here, still unable to swallow water. EGD 12/11/18: esophageal stricture, Juan fundoplication, s/p bariatric procedure. Stricture dilated w/ balloon, attempted dilation of wrap w/ bougie (54Fr), then after food removal. Colon 05/12/18: non-bleeding internal hemorrhoids. EGD 06/09/19: impacted food (resolved w/ multiple passes w/ scope), no discrete stricture - seems to hold up at fundoplication, s/p sleeve gastrectomy, normal duodenal bulb. Barium swallow 06/10/19: no definite intrinsic or extrinsic filling defect of the esophagus, mild mass effect on the esophagus from aortic arch, prompt gastr oesophageal emptying, small hiatal hernia, teriary contraction suggesting delaying motility, presbyesophagus, reflux to the mid thoracic esophagus. EGD 02/12/20: esophageal dilation, normal stomach, normal duodenum. GES 04/21/20: rapid gastric emptying. H/o heartburn on Dexilant QD. No change in appetite, weight loss, diarrhea, constipation, or bleeding. S/p cholecystectomy. On past CT: anterior abdominal wall [place] hernia containing loop of large large bowel in the midline. H/o Sjogren's. Chronic pain on fentanyl patch and PRN NSAIDs. Also ASA 81mg QHS. PMH: PMH: Sjogren's, HTN, HLD, DANE on CPAP, OA, fibromyalgia, hypothyroidism bilateral cataract extraction, BTL, cholecystectomy, Juan fundoplication, back surgery, knee surgery, shoulder surgery, appendectomy, hysterectomy FH: Family History: CAD, DM, Other (colon cancer, colon polyps, Crohn's) Social History: Smoke: No ALCOHOL: none Drugs: None ROS: GEN: Denies fevers, chills, sweats HEENT: Denies blurred vision, sore throat CV: Denies chest pain RESP: Denies shortness of air, cough GI: Per HPI : Denies hematuria, dysuria ENDO: Denies weight changes NEURO: Denies confusion, dizziness MSK: Denies weakness, joint pain/swelling SKIN: Denies jaundice, pruritus Vitals: Vitals: Vital Signs Date Time Temp Pulse Resp B/P (MAP) Pulse Ox O2 Delivery O2 Flow Rate FiO2 06/21/20 13:36 98.3 67 18 163/82 (109) 97 Room Air 98.3 Labs: Labs: Laboratory Tests Test 06/21/20 14:20 White Blood Count 6.5 x10^3/uL (4.0-11.0) Red Blood Count 4.11 x10^6/uL (3.50-5.40) Hemoglobin 13.5 g/dL (12.0-15.5) Hematocrit 38.9 % (36.0-47.0) Mean Corpuscular Volume 95 fL (79-100) Mean Corpuscular Hemoglobin 33 pg (25-35) Mean Corpuscular Hemoglobin Concent 35 g/dL (31-37) Red Cell Distribution Width 13.1 % (11.5-14.5) Platelet Count 230 x10^3/uL (140-400) Neutrophils (%) (Auto) 57 % (31-73) Lymphocytes (%) (Auto) 30 % (24-48) Monocytes (%) (Auto) 9 % (0-9) Eosinophils (%) (Auto) 3 % (0-3) Basophils (%) (Auto) 1 % (0-3) Neutrophils # (Auto) 3.7 x10^3/uL (1.8-7.7) Lymphocytes # (Auto) 1.9 x10^3/uL (1.0-4.8) Monocytes # (Auto) 0.6 x10^3/uL (0.0-1.1) Eosinophils # (Auto) 0.2 x10^3/uL (0.0-0.7) Basophils # (Auto) 0.1 x10^3/uL (0.0-0.2) Prothrombin Time 12.6 SEC (11.7-14.0) Prothromb Time International Ratio 1.0 (0.8-1.1) Sodium Level 140 mmol/L (136-145) Potassium Level 3.0 mmol/L (3.5-5.1) Chloride Level 102 mmol/L (98-107) Carbon Dioxide Level 29 mmol/L (21-32) Anion Gap 9 (6-14) Blood Urea Nitrogen 16 mg/dL (7-20) Creatinine 0.6 mg/dL (0.6-1.0) Estimated GFR (Cockcroft-Gault) 100.3 BUN/Creatinine Ratio 27 (6-20) Glucose Level 82 mg/dL (70-99) Calcium Level 8.7 mg/dL (8.5-10.1) Total Bilirubin 0.5 mg/dL (0.2-1.0) Aspartate Amino Transf (AST/SGOT) 22 U/L (15-37) Alanine Aminotransferase (ALT/SGPT) 19 U/L (14-59) Alkaline Phosphatase 131 U/L (46-116) Total Protein 7.0 g/dL (6.4-8.2) Albumin 3.5 g/dL (3.4-5.0) Albumin/Globulin Ratio 1.0 (1.0-1.7) Allergies: Coded Allergies: No Known Drug Allergies (Unverified , 12/11/18) Medications: Current Medications Medications (Trade) Dose Ordered Sig/Bonita Route PRN Reason Start Time Stop Time Status Last Admin Dose Admin Glucagon (Glucagen) 1 mg 1X ONCE IV 06/21/20 14:15 06/21/20 14:17 DC 06/21/20 14:29 Ondansetron HCl (Zofran) 4 mg 1X ONCE IVP 06/21/20 14:15 06/21/20 14:17 DC 06/21/20 14:27 Imaging: Imaging: CXR 06/21 IMPRESSION: No active cardiopulmonary disease. No radiopaque foreign body identified in the included field of view. If the fluid bolus is suspected stomach in the esophagus, an esophagogram could be pursued in further evaluation. PE: GEN: NAD HEENT: Atraumatic, PERRL LUNGS: CTAB HEART: RRR ABD: NABS, S/ND/NT EXTREMITY: No edema SKIN: No rashes, no jaundice NEURO/PSYCH: A & O 3 A/P: A/P: Chronic/recurrent dysphagia - h/o esophageal stricture/dilations, presbyesophagus, food boluses Hypokalemia GERD S/p Juan fundoplication, s/p sleeve gastrectomy CRC screen - UTD (2018) S/p cholecystectomy Sjogren's Chronc pain -- Check rapid COVID swab per protocol. EGD/removal of food bolus this afternoon. ADAM REDMAN Jun 21, 2020 15:58
[2020-06-21] MEDS ORDERED: IV RINGERS,LACTATED 1000ML 1,000 ML IV SCH (16:14)
[2020-06-21] MEDS ORDERED: LIDOCAINE 2% PF 5 ML VIAL. ONE (16:26)
[2020-06-21] MEDS ORDERED: PROPOFOL 10 MG/ML (20ML) VIAL. IV ONE ×3 (16:26→17:58)
[2020-06-21 18:30] VITALS: BP 177/80
--- NOTE | 2020-06-23 10:21 | NUR ---
IP: Attempted to call [facility] results, no answer. Left voicemail for a return call.
--- NOTE | 2020-06-23 12:34 | NUR ---
IP: Pt returned call. Informed pt of negative COVID results. Pt verbalized understanding.
== END 2020-06-21 15:59 | disposition home or self-care (01) ==
LOC: ER 13:30
DX: T18.128A Food in esophagus causing other injury, initial encounter (principal); R11.2 Nausea with vomiting, unspecified; M79.7 Fibromyalgia; I10 Essential (primary) hypertension; G89.29 Other chronic pain; Z90.710 Acquired absence of both cervix and uterus; Z90.49 Acquired absence of other specified parts of digestive tract; Z98.890 Other specified postprocedural states; X58.XXXA Exposure to other specified factors, initial encounter; Y93.89 Activity, other specified; Y92.89 Other specified places as the place of occurrence of the external cause; Y99.8 Other external cause status
CPT/HCPCS: 36415; 43247; 71045; 80053; 85025; 85610; 87426; 96361; 96374; 96375; 99285; C1757; J1610; J2405; J2704; J7120; U0003

== ENCOUNTER → 2020-06-30 | Outpatient (CLI) | payer MEDICARE, BC ==
[2020-06-21 18:30] VITALS: BP 177/80
[~2020-06-30] MED LIST changes: +AMLO-186 PO; -AMLO5TAB10 PO; +IOHEXOL 180 MG/ML 10 ML VIAL. INT ART ONE; +LIDOCAINE 1% Multi-Dose 20 ML VIAL. ID ONE
--- NOTE | 2020-06-30 17:09 | KCIC ---
Examination: CT arthrogram right shoulder HISTORY: History of chronic right shoulder pain, rotator cuff repair COMPARISON: 07/03/2019 TECHNIQUE: Axial CT images of the right shoulder performed after arthrogram injection: Reformats are performed FINDINGS: Contrast is seen extending from the shoulder joint into the subacromial subdeltoid bursa likely full-thickness tear of the supraspinatus tendon, best visualized on series 601 image 21. There is thinning of the infraspinatus tendon probably postsurgical changes. There is a 1 cm low intensity focus identified in the posterior aspect of the shoulder joint, best visualized on series 3 image 23 could be focal synovial prominence or a loose body. There is mild thickening of the anterior labrum probably degenerative changes. The muscle bulk grossly appears unremarkable. IMPRESSION: 1. Contrast is seen extending from the shoulder joint into the subacromial subdeltoid bursa likely full-thickness tear of the supraspinatus tendon, best visualized on series 601 image 21. Postsurgical changes likely prior rotator cuff repair identified. 2. A low intensity focus identified in the posterior aspect of the shoulder joint, best visualized on series 3 image 23 could be focal synovial prominence or a loose body. Electronically signed by: Earnest Ingram MD (06/30/2020 5:06 PM) [id number]
--- NOTE | 2020-07-01 08:16 | KCIC ---
Examination: Right Shoulder Arthrogram: Indications: Right shoulder pain. Procedure: Risks, benefits and complications including bleeding, infection, blood vessel damage or joint infection were discussed with the patient. Questions were answered and consent form signed. The patient was placed supine on the fluoroscopy table with the shoulder slightly externally rotated. Bony landmarks were used to plan for fluoroscopic injection. The patient was carefully prepped and draped in a sterile fashion. Using fluoroscopic guidance, local anesthetic and a 22 gauge needle the joint space was entered. Intra-articular location was confirmed as approximately 12cc of a mixture of iodinated and lidocaine was injected to distend the shoulder joint. The procedure was well tolerated and the patient was sent CT. No immediate complications. Total fluoroscopic images 1. Total fluoroscopic time 18 seconds Impression: Status post fluoroscopic guided arthrogram in preparation for CT with contrast. Electronically signed by: Earnest Ingram MD (07/01/2020 8:13 AM) [id number]
== END ==
LOC: KCIC 14:45
PROVIDERS: ATTEND Orthopaedic Surgery
PROC: BP08ZZZ Plain Radiography of Right Shoulder (ICD-10-PCS; principal; 2020-06-30)
DX: M25.511 Pain in right shoulder (principal); I10 Essential (primary) hypertension; E78.5 Hyperlipidemia, unspecified; G47.33 Obstructive sleep apnea (adult) (pediatric); K21.9 Gastro-esophageal reflux disease without esophagitis; E03.9 Hypothyroidism, unspecified; J44.9 Chronic obstructive pulmonary disease, unspecified; F32.9 Major depressive disorder, single episode, unspecified; Z98.890 Other specified postprocedural states; Z79.899 Other long term (current) drug therapy; Z82.49 Family history of ischemic heart disease and other diseases of the circulatory system; Z83.3 Family history of diabetes mellitus
CPT/HCPCS: 23350; 73040; 73201; 77002

== ENCOUNTER → 2021-06-22 | Outpatient (CLI) | payer MEDICARE, BC ==
[~2021-06-22] MED LIST changes: -DULO60CA6 PO; +DULO60CA7 PO; -IOHEXOL 180 MG/ML 10 ML VIAL. INT ART ONE; -LIDOCAINE 1% Multi-Dose 20 ML VIAL. ID ONE
--- NOTE | 2021-06-23 11:45 | KCIC ---
EXAM: XR HIP (WITH OR WITHOUT PELVIS) RIGHT 1 VIEW 06/22/2021 2:04 PM CLINICAL INDICATION: Right hip pain for 6 months. No known injury. COMPARISON: None TECHNIQUE: AP view the pelvis and frog-leg lateral view of the right hip. FINDINGS: No acute fracture. The bones are diffusely demineralized. Alignment is normal. There is en thesopathy of the right greater trochanter. Mild bilateral hip joint space narrowing with small aceta bular osteophytes. Mild degenerative changes of the pubic symphysis. Sacral iliac joints are normal. There is lower lumbar degenerative disc disease. A battery generator projects over the right lower qu adrant. IMPRESSION: 1. No acute osseous abnormality. 2. Mild degenerative joint disease of the hips. 3. Right trochanteric enthesopathy. Electronically signed by: Steph Robbins MD (06/23/2021 11:43 AM) [id number]
== END ==
LOC: KCIC 14:00
PROVIDERS: ATTEND Family Medicine
DX: M16.0 Bilateral primary osteoarthritis of hip (principal); M76.9 Unspecified enthesopathy, lower limb, excluding foot
CPT/HCPCS: 73501